=== PATIENT | female | born 1940 | race Caucasian/White ===

== ENCOUNTER 2017-05-30 14:08 | Emergency (ER) | payer MEDICARE, OTHER ==
[~2017-05-30] VITALS: Ht 162.6 cm; Wt 99.2 kg
[~2017-05-30 14:08] MED LIST: Aspirin EC81 MG; DILT180 PO; Dyazide 37.5-21 EACH PO; Glipizide Xl10 MG PO; INSU100I6 SC; LOSARTAN POTAS100 MG PO; METF500C PO; METO50ER PO; OXYB5 PO; RANI150 PO; TOUJEO SOL300 UNIT/1 SC; VITAMIN D31000 UNIT PO
[2017-05-30 14:46] LABS: BASOPHILS ABSOLUTE AUTO 0.13 K/mm3 (0.00-0.23); BASOPHILS PERCENT AUTO 1 % (0-2); EOSINOPHILS ABSOLUTE AUTO 0.31 K/mm3 (0.00-0.68); EOSINOPHILS PERCENT AUTO 2 % (0-6); Hematocrit 48.8 % (33.0-51.0); Hemoglobin 14.9 g/dL (11.5-16.0); IMMATURE GRAN ABSOLUTE AUTO 0.08 K/mm3 (0.00-0.10); IMMATURE GRAN PERCENT AUTO 1 % (0-1); LYMPHOCYTES ABSOLUTE AUTO 2.57 K/mm3 (0.84-5.20); LYMPHOCYTES PERCENT AUTO 20 % (21-46); MONOCYTES ABSOLUTE AUTO 0.88 K/mm3 (0.16-1.47); MONOCYTES PERCENT AUTO 7 % (4-13); Mean Corpuscular HGB 22.2 pg (26.0-34.0); Mean Corpuscular HGB Conc 30.5 g/dL (31.5-36.5); Mean Corpuscular Volume 73 fL (80-100); Mean Platelet Volume 9.9 fL (9.1-12.4); NEUTROPHILS ABSOLUTE AUTO 9.13 K/mm3 (1.96-9.15); NEUTROPHILS PERCENT AUTO 70 % (41-73); Platelet Count 282 K/mm3 (150-400); RDW Coefficient Variation 18.2 % (11.7-14.2); RDW Standard Deviation 42.4 fL (35.1-46.3)
[2017-05-30] MEDS ORDERED: HYDCHL12.5 PO (14:57)
[2017-05-30] MEDS ORDERED: LISI20 PO (14:58)
[2017-05-30] MEDS ORDERED: CALCA400CH PO (15:00)
[2017-05-30 15:12] LABS: Troponin I <0.015 ng/mL (0.000-0.040)
[2017-05-30 15:13] LABS: Alanine Aminotransfer (ALT/SGP 28 U/L (12-78); Albumin, Blood 3.4 g/dL (3.4-5.0); Albumin/Globulin Ratio 0.8 (0.8-1.8); Alk Phos 60 U/L (50-136); Anion Gap 7 mmol/L (6-16); Aspartate Aminotrans (AST/SGOT 26 U/L (12-37); Bilirubin, Total 0.4 mg/dL (0.1-1.0); Blood Urea Nitrogen 17 mg/dL (8-24); Bun/Creatinine Ratio 20.5 (12.0-20.0); CO2, Blood 23 mmol/L (21-32); Calcium, Blood 9.1 mg/dL (8.5-10.1); Chloride, Blood 109 mmol/L (98-108); Creatinine, Blood 0.83 mg/dL (0.40-1.00); Globulin, Blood 4.5 g/dL (2.2-4.0); Glomerular Filtration Rate >60 (60-); Glucose, Blood 66 mg/dL (70-99); Potassium, Blood 4.2 mmol/L (3.5-5.5); Sodium, Blood 139 mmol/L (136-145); Total Protein, Blood 7.9 g/dL (6.4-8.2)
== END 2017-05-30 17:40 | disposition home or self-care (01) ==
LOC: ER 14:08
PROVIDERS: Physician Assistant
DX: I10 Essential (primary) hypertension (principal); R07.89 Other chest pain; Z88.0 Allergy status to penicillin; Z88.8 Allergy status to other drugs, medicaments and biological substances; Z79.82 Long term (current) use of aspirin; Z79.4 Long term (current) use of insulin; Z79.899 Other long term (current) drug therapy; Z90.49 Acquired absence of other specified parts of digestive tract; Z96.649 Presence of unspecified artificial hip joint
CPT/HCPCS: 36415; 71046; 80053; 83880; 84484; 85025; 93005; 93010; 96374; 99283

== ENCOUNTER → 2017-10-15 | Outpatient (CLI) | payer MEDICARE, OTHER ==
[~2017-10-15] MED LIST changes: +CALCA400CH PO; +HYDCHL12.5 PO; +LISI20 PO
== END | disposition home or self-care (01) ==
LOC: PLD 08:39 → LAB SHORT 08:39
DX: D48.5 Neoplasm of uncertain behavior of skin (principal)
CPT/HCPCS: 88305

== ENCOUNTER 2018-11-23 20:03 | Inpatient (IN) | payer MEDICARE, OTHER ==
[~2018-11-23] VITALS: Ht 162.6 cm; Wt 88.9 kg
[2018-11-23 20:32] LABS: BASOPHILS ABSOLUTE AUTO 0.14 K/mm3 (0.00-0.23); BASOPHILS PERCENT AUTO 1 % (0-2); EOSINOPHILS ABSOLUTE AUTO 0.26 K/mm3 (0.00-0.68); EOSINOPHILS PERCENT AUTO 2 % (0-6); Hematocrit 46.2 % (33.0-51.0); Hemoglobin 14.1 g/dL (11.5-16.0); IMMATURE GRAN ABSOLUTE AUTO 0.14 K/mm3 (0.00-0.10); IMMATURE GRAN PERCENT AUTO 1 % (0-1); LYMPHOCYTES ABSOLUTE AUTO 2.32 K/mm3 (0.84-5.20); LYMPHOCYTES PERCENT AUTO 13 % (21-46); MONOCYTES PERCENT AUTO 8 % (4-13); Mean Corpuscular HGB 23.2 pg (26.0-34.0); Mean Corpuscular HGB Conc 30.5 g/dL (31.5-36.5); Mean Corpuscular Volume 76 fL (80-100); NEUTROPHILS ABSOLUTE AUTO 13.15 K/mm3 (1.96-9.15); NEUTROPHILS PERCENT AUTO 76 % (41-73); Platelet Count 273 K/mm3 (150-400); RDW Coefficient Variation 15.7 % (11.7-14.2); RDW Standard Deviation 42.5 fL (35.1-46.3); Red Blood Cell Count 6.09 M/mm3 (3.80-5.20); White Blood Cell Count 17.31 K/mm3 (4.00-11.30)
[2018-11-23 20:47] LABS: Alanine Aminotransfer (ALT/SGP 25 U/L (12-78); Albumin, Blood 3.1 g/dL (3.4-5.0); Albumin/Globulin Ratio 0.7 (0.8-1.8); Alk Phos 107 U/L (50-136); Anion Gap 8 mmol/L (6-16); Aspartate Aminotrans (AST/SGOT 22 U/L (12-37); Bilirubin, Total 0.5 mg/dL (0.1-1.0); Blood Urea Nitrogen 24 mg/dL (8-24); Bun/Creatinine Ratio 24.3 (12.0-20.0); CO2, Blood 22 mmol/L (21-32); Calcium, Blood 9.1 mg/dL (8.5-10.1); Chloride, Blood 109 mmol/L (98-108); Creatinine, Blood 0.99 mg/dL (0.40-1.00); Globulin, Blood 4.4 g/dL (2.2-4.0); Glomerular Filtration Rate 58 (60-); Glucose, Blood 153 mg/dL (70-99); Potassium, Blood 4.2 mmol/L (3.5-5.5); Sodium, Blood 139 mmol/L (136-145); Total Protein, Blood 7.5 g/dL (6.4-8.2); Troponin I <0.015 ng/mL (0.000-0.040)
[2018-11-23 21:59] LABS: Source, Urine Catheter
[2018-11-23 22:04] LABS: Appearance, Urine Hazy (Clear); Bilirubin, Urine Neg (Neg); Blood, Urine 1+ (Neg); Color, Urine Pale Yellow (P-Yellow); Glucose Qualitative, Urine Neg (Neg); Ketones, Urine Neg (Neg); Leukocyte Esterase, Urine 1+ (Neg); Nitrite, Urine Pos (Neg); Protein, Urine 1+ (Neg); Specific Gravity, Urine 1.015 (1.003-1.022); Urobilinogen, Urine NORM (Normal)
[2018-11-23 22:13] LABS: Bacteria Many /hpf; Red Blood Cells, Urine Rare /hpf (0-2); Squamous Epithelial Cells Not Seen /hpf (Few); White Blood Cells, Urine 0-2 /hpf (0-5)
[2018-11-24 00:49] LABS: Magnesium, Blood 2.1 mg/dL (1.6-2.4)
[2018-11-24 00:51] LABS: Thyroid Stimulating Hormone 1.73 uIU/mL (0.360-4.800)
[2018-11-24 02:23] LABS: International Normalized Ratio 1.01; Prothrombin Time Results 10.7 Sec (9.7-11.5)
--- NOTE | 2018-11-24 04:20 | NUR ---
SHEATH REMOVAL: R FEMORAL SHEATH REMOVED & MANUAL PRESSURE HELD FOR 20 MINUETS BY Alison SERRANO RN. SITE WAS DRESSED W DAVID DRSG. SITE IS SOFT, NO HEMATOMA. WILL CONT TO MONITOR. PT REMINDED TO KEEP LEG STRAIGHT.
--- NOTE | 2018-11-24 04:30 | NUR ---
PT TO ICU 14 FROM CONFERENCE TRANSLATOR. PT HAS ARTERIAL SHEATH R GROIN & VENOUS SHEATH L GROIN. TEMPORARY TRANSVENOUS PACER L VENOUS SHEATH. PACER 78CM INSERTION, SET VVI, RATE 60, mV2, V5. PT HAS FULLY PACED RHYTHM AT 60. PT HAS DOPAMINE INFUSING AT 15MCG/KG/MIN. DR FINNEY TO BEDSIDE & DISCUSSED PT STATUS. WILL TITRATE DOPAMINE TO OFF POSSIBLE, KEEPING SBP >120 PT HAS SEVERE AORTIC STENOSIS. PT IS ALERT, HAS WRY SENSE OF HUMOR, CONT W MILD NAUSEA STATES IT IS INTERMITTANT. CO INTERMITTANT SPASMS TO R LEG, DR FINNEY REQ NARCOTIC BE USED SPARINGLY PT BP DECLINED W SMALL DOSE IN CONFERENCE TRANSLATOR. PT HAS BILAT AC IV ACCESS, BOTH SITES DRAW BLOOD READILY & EASILY. WILL CONT TO MONITOR FREQ FOR ANY SIGN OF INFILTRATION. REVIEWED RESTRICTIONS W PT MOVEMENT & IMPORTANCE OF NO FLEXION OF EITHER LEG. PT UNDERSTANDS, SHEET PLACED ACROSS KNEES REMINDER. CALL LIGHT IN REACH.
[2018-11-24 04:32] LABS: BASOPHILS ABSOLUTE AUTO 0.12 K/mm3 (0.00-0.23); BASOPHILS PERCENT AUTO 1 % (0-2); EOSINOPHILS ABSOLUTE AUTO 0.01 K/mm3 (0.00-0.68); EOSINOPHILS PERCENT AUTO 0 % (0-6); Hematocrit 44.4 % (33.0-51.0); Hemoglobin 13.6 g/dL (11.5-16.0); IMMATURE GRAN ABSOLUTE AUTO 0.24 K/mm3 (0.00-0.10); IMMATURE GRAN PERCENT AUTO 1 % (0-1); LYMPHOCYTES ABSOLUTE AUTO 0.98 K/mm3 (0.84-5.20); LYMPHOCYTES PERCENT AUTO 5 % (21-46); MONOCYTES ABSOLUTE AUTO 1.91 K/mm3 (0.16-1.47); MONOCYTES PERCENT AUTO 9 % (4-13); Mean Corpuscular HGB 23.2 pg (26.0-34.0); Mean Corpuscular HGB Conc 30.6 g/dL (31.5-36.5); Mean Corpuscular Volume 76 fL (80-100); Mean Platelet Volume 9.5 fL (9.1-12.4); NEUTROPHILS ABSOLUTE AUTO 17.52 K/mm3 (1.96-9.15); NEUTROPHILS PERCENT AUTO 84 % (41-73); Platelet Count 329 K/mm3 (150-400); RDW Coefficient Variation 15.2 % (11.7-14.2); RDW Standard Deviation 41.7 fL (35.1-46.3); Red Blood Cell Count 5.87 M/mm3 (3.80-5.20); White Blood Cell Count 20.78 K/mm3 (4.00-11.30)
[2018-11-24 04:52] LABS: Albumin, Blood 3.1 g/dL (3.4-5.0); Albumin/Globulin Ratio 0.8 (0.8-1.8); Bilirubin, Total 0.7 mg/dL (0.1-1.0); Bun/Creatinine Ratio 25.2 (12.0-20.0); Calcium, Blood 8.5 mg/dL (8.5-10.1); Creatinine, Blood 1.15 mg/dL (0.40-1.00); Potassium, Blood 4.2 mmol/L (3.5-5.5); Total Protein, Blood 7.1 g/dL (6.4-8.2)
--- NOTE | 2018-11-24 06:30 | NUR ---
DR FINNEY HERE TO CHECK PT STATUS. BP UP TO 140SYST, WILL DECREASE DOPAMINE & CHANGE TO LEVOPHED PER DR FINNEY ORDER. PT CO MORE PAIN/SPASMS TO R LEG, WILL MED W FENTANYL. CONT PACED, BUT NOTED W OCCAS PVC'S AT TIMES. IV SITE L AC W DOPAMINE CONT TO INFUSE WO ANY SIGN OF INFILTRATION. CONT TO MONITOR.
--- NOTE | 2018-11-24 07:10 | NUR ---
PT MED W FENTANYL 12.5MCG. CONT TO RESP APPROP TO QUEST, AND MED REC COMPLETED. R FEMORAL SITE CONT SOFT & WO BLEEDING. L FEMORAL SITE ALSO IS UNCHANGED W TEMP TRANSV PACER. CONT W PACED RHYTHM. DOPAMINE DC'D & CHANGED TO LEVOPHED, STARTED AT 3MCG/MIN. L AC IV CONT WO ANY SIGN OF INFILTRATION. REPORT TO PAMELA AT BEDSIDE, SITES & PUMPS VERIFIED.
[2018-11-24] MEDS ORDERED: AMLO10 PO (07:35)
[2018-11-24] MEDS ORDERED: SPIR25 PO (07:35)
--- NOTE | 2018-11-24 09:16 | NUR ---
PT RESTING COMFORTABLY. LEVOPHED TITRATED TO 1MCG. BP TOLERATING WELL ABOVE SBP OF 100. LAST SBP 103, LEVOPHED WILL REMAIN AT 1MCG. PT COMPLAINING OF CONSTIPATION, LAST BM 11/22/18.
--- NOTE | 2018-11-24 09:47 | NUR ---
PER DR. MCKEON LIMIT IV NS TO 1.5L.
--- NOTE | 2018-11-24 13:01 | NUR ---
ANTIBIOTICS CLARIFIED WITH DR. MCKEON. NO ROCEPHIN AT THIS TIME.
--- NOTE | 2018-11-24 13:57 | NUR ---
SHIFT REASSESSMENT: PT IN BED RESTING. TAKEN TO CT FOR ABDOMINAL SCAN. TOLERATED WELL. PERMANENT PACEMAKER NOT SCHEDULED FOR TODAY DUE TO ELEVATED WHITE COUNT. PT IS TEMP PACED WITH OCCASIONAL PACING WHEN HR DROPS BELOW 60. PT IS ALSO GOES BETWEEN 1ST DEGREE HEARTBLOCK AND REGULAR RHYTHM. BLOOD PRESSURES ABOVE 120. SYSTOLICALLY R FEM CATH INSERTION SITE DRESSING INTACT AND DRY WITHOUT HEMATOMA. R GROIN PACER INSERTION SITE INTACT AND DRY. PT HAS REPORTED PAIN AT R ANKLE FRACTURE. FENTANYL GIVEN. COLOR AND SENSATION INTACT AT R. LOWER EXTREMITY. FRIENDS AND FAMILY HAVE BEEN IN PTS ROOM THROUGHOUT MORNING.
--- NOTE | 2018-11-24 15:59 | NUR ---
SHIFT SUMMARY: PT CAME IN AFTER FALL AND BROKEN R ANKLE. FOUND IN ED TO BE IN A 3RD DEGREE BLOCK AND A TEMP PACEMAKER WAS PLACED. PACEMAKER SET AT MV 2, V 5, RATE AT 60. R FEM INSERTION SITE IS CLEAN AND DRY WITHOUT HEMATOMA. TEMP PACER PLACED THROUGH L GROIN-NO HEMATOMA, DRESSING IS CLEAN AND DRY. SPLINT IS ON R ANKLE. COLOR AND SENSATION INTACT TO R FOOT. PT HAS COMPLAINED OF SOME PAIN AND FENTANYL WAS GIVEN X 1. FRIENDS AND FAMILY HAVE BEEN AT BEDSIDE ON AND OFF THROUGHOUT SHIFT.
--- NOTE | 2018-11-24 18:42 | NUR ---
PT EXPERIENCING INCREASED PAIN WITH REPOSITIONING FOR DINNER. FENTANYL GIVEN PER ORDER
--- NOTE | 2018-11-24 18:55 | NUR ---
INFUSING LAST 500ML OF ORDERED 1.5L OF NS
--- NOTE | 2018-11-24 20:22 | NUR ---
CARE ASSUMED REPORT RECEIVED, CARE ASSUMED AT 1900 FROM THEA OLIVEIRA AND THEA COELHO. BEDSIDE REPORT COMPLETED, SITES VERIFIED. PT REMAINS PACED WITH TEMPORARY PACER. HR 70'S-80'S WITH OCCASIONAL PACED BEATS. BP STABLE. PT HAVING INTERMITTENT, SHARP, RADIATING PAINS TO RIGHT LEG DUE TO FRACTURE. PT REPORTS PAIN IMPROVED FROM PREVIOUSLY RATING AT 7/10. PT CALM AND RESTFUL IN BETWEEN PAIN SURGES. PT RECEIVING PHONE CALLS FROM MULTIPLE FRIENDS OVER PREVOIUS HOUR. PT DISCUSSES BEING HOPEFUL FOR COMPLETION OF BOTH THE PERMANENT PACEMAKER AND RIGHT ANKLE SURGERY. EDUCATED PT ON PLAN OF CARE AND PT AGREEABLE. PT DECLINES REPOSITIONING DUE TO INCREASED PAIN. PT EDUCATED ON BED SORE PREVENTION. PT AGREES TO BEDREST AND TO CALL FOR NEEDS. SEE VITALS FLOWSHEET/SHIFT ASSESSMENT.
--- NOTE | 2018-11-25 02:45 | NUR ---
SUMMARY VITALS STABLE. PT OCCASIONALLY PACED. PAIN MANAGED WITH FENTANYL. OTHERWISE, PT HAS SLEPT SOUNDLY AND EXPRESSED NEEDS APPROPRIATELY. SEE REASSESSMENTS AND VITALS FLOWSHEET. REPORT TO THEA SCOTT TO ASSUME CARE.
--- NOTE | 2018-11-25 02:51 | NUR ---
ASSUMED CARE OF PT PT SLEEPING, AWAKENS EASILY TO VERBAL. DENIES PAIN AT THIS TIME. PT STATES,"I'M NOT HAVING ANY PAIN RIGHT NOW". FIVE LULI TO POSTERIOR HEAD WITHOUT DRAINAGE. RIGHT GROIN STABLE. LEFT GROIN WITH PACEMAKER SITE STABLE. RIGHT LOWER EXT WITH SPLINT AND MICHAEL WRAP. DENIES NUMBNESS OR TINGLING TO BILAT LOWER EXT. BRISK CAP REFILL TO RIGHT FOOT. RIGHT FOOT ELEVATED ON PILLOWS. TRANSVENOUS PACER SETTINGS VVI, 78CM, RATE 60, MV 2 V 5.
[2018-11-25 03:24] LABS: BASOPHILS ABSOLUTE AUTO 0.09 K/mm3 (0.00-0.23); BASOPHILS PERCENT AUTO 1 % (0-2); EOSINOPHILS ABSOLUTE AUTO 0.35 K/mm3 (0.00-0.68); EOSINOPHILS PERCENT AUTO 3 % (0-6); Hematocrit 38.6 % (33.0-51.0); Hemoglobin 11.7 g/dL (11.5-16.0); IMMATURE GRAN ABSOLUTE AUTO 0.07 K/mm3 (0.00-0.10); IMMATURE GRAN PERCENT AUTO 1 % (0-1); LYMPHOCYTES ABSOLUTE AUTO 1.77 K/mm3 (0.84-5.20); LYMPHOCYTES PERCENT AUTO 14 % (21-46); MONOCYTES ABSOLUTE AUTO 1.38 K/mm3 (0.16-1.47); MONOCYTES PERCENT AUTO 11 % (4-13); Mean Corpuscular HGB 22.9 pg (26.0-34.0); Mean Corpuscular HGB Conc 30.3 g/dL (31.5-36.5); Mean Corpuscular Volume 76 fL (80-100); Mean Platelet Volume 9.7 fL (9.1-12.4); NEUTROPHILS ABSOLUTE AUTO 8.59 K/mm3 (1.96-9.15); NEUTROPHILS PERCENT AUTO 70 % (41-73); Platelet Count 201 K/mm3 (150-400); RDW Coefficient Variation 15.2 % (11.7-14.2); RDW Standard Deviation 41.4 fL (35.1-46.3); Red Blood Cell Count 5.11 M/mm3 (3.80-5.20); White Blood Cell Count 12.25 K/mm3 (4.00-11.30)
--- NOTE | 2018-11-25 04:40 | NUR ---
PAIN PT AWAKE. C/O PAIN TO RIGHT LEG 10/18. MED WITH FENTANYL 12.5 MCQ. PT EXPRESS RELIEF FROM PAIN. PT STATES,"I FEEL LIKE I COULD SIT UP NOW".
--- NOTE | 2018-11-25 06:20 | NUR ---
SHIFT SUMMARY PT RESTING QUIELTY AT THIS TIME. PT MED WITH FENTANYL 12.5 MCQ FOR RIGHT LEG PAIN WITH GOOD RESULTS. CALL TO DR LEDEZMA REGARDING HTN THIS AM. RECEIVED ORDER FOR ONE TIME DOSE OF NORVASC 5 MG PO. PT TO GO TO [employer] UNDERWRITER TODAY FOR PACER PLACEMENT. REPORT TO ON COMING NURSE.
--- NOTE | 2018-11-25 06:36 | NUR ---
PAIN/HTN PT MED WITH FENTANYL FOR PAIN WITH GOOD RESULTS. GIVEN NORVASC 5 MG ONE TIME DOSE FOR HTN.
--- NOTE | 2018-11-25 07:11 | NUR ---
LATE ENTRY: NOTE ENTERED ON WRONG PATIENT. PAIN REASSESSMENT RE ADMINISTRATION OF TYLENOL 650MG. REPORTS PAIN EASES UP WITH REST. HOWEVER, PAIN WITH REPOSITIONING INCREASES UP TO A 9/10
--- NOTE | 2018-11-25 13:16 | NUR ---
UPDATE GIVEN TO DR. PATEL RE PACEMAKER PLACEMENT
[2018-11-25 13:24] LABS: Alanine Aminotransfer (ALT/SGP 18 U/L (12-78); Albumin, Blood 2.7 g/dL (3.4-5.0); Albumin/Globulin Ratio 0.7 (0.8-1.8); Alk Phos 92 U/L (50-136); Anion Gap 8 mmol/L (6-16); Aspartate Aminotrans (AST/SGOT 11 U/L (12-37); Bilirubin, Total 0.5 mg/dL (0.1-1.0); Blood Urea Nitrogen 19 mg/dL (8-24); Bun/Creatinine Ratio 20.1 (12.0-20.0); CO2, Blood 21 mmol/L (21-32); Calcium, Blood 8.7 mg/dL (8.5-10.1); Chloride, Blood 111 mmol/L (98-108); Creatinine, Blood 0.94 mg/dL (0.40-1.00); Glomerular Filtration Rate >60 (60-); Glucose, Blood 173 mg/dL (70-99); Potassium, Blood 3.9 mmol/L (3.5-5.5); Sodium, Blood 140 mmol/L (136-145); Total Protein, Blood 6.7 g/dL (6.4-8.2)
--- NOTE | 2018-11-25 13:41 | NUR ---
[facility] ON UNIT TO TAKE PT
--- NOTE | 2018-11-25 18:53 | NUR ---
PT BACK FROM ASSISTANT PROFESSOR OF ENGLISH POST PERM DUAL CHAMBER PACEMAKER PLACEMENT. RATE IS SET AT 60 AND MODE IS MVP. 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 PT RECEIVED 10 OF VERSED, 275 OF FENTANYL, 550 ML OF NS AND 1G IV VANCO. PER DR DE JESUS SLING IS TO REMAIN ON X 2 DAYS; VANCO IS ORDERED X 2 DOSES. DUE TO HTN AND TACHYCARDIA DR. DE JESUS IS RECOMMENDING A BETA VINOD, HOWEVER DID NOT RECOMMEND A SPECIFIC MED OR DOSAGE. CALL PLACED TO DR. CMKEON RE BETA VINOD.
--- NOTE | 2018-11-25 19:08 | NUR ---
PHARMACY CALLED RE [place]. PER PHARMACIST HOLD VANCO UNTIL CLARIFICATION IS RECEIVED FROM DR DE JESUS REGARDING TIMING. LAST DOSE OF VANCO WAS GIVEN PRE-OPERATIVELY AROUND 1300.
--- NOTE | 2018-11-26 01:30 | NUR ---
CONT TO HAVE SPASMODIC PAIN R LEG WHICH IS ELEVATED & WRAPPED MICHAEL WRAP. GOOD PAIN RELIEF W NORCO. TOES ARE WARM & PINK. SBP CONT 160-170 & ORDER REC'D & PT WAS MED W TOPROL. PT WAS EDUCATED RE LIMITATIONS OF R ARM S/P PACER IMPLANT, SLING IN PLACE. CALL LIGHT IN REACH.
[2018-11-26 03:08] LABS: BASOPHILS PERCENT AUTO 1 % (0-2); EOSINOPHILS ABSOLUTE AUTO 0.23 K/mm3 (0.00-0.68); EOSINOPHILS PERCENT AUTO 2 % (0-6); Hematocrit 37.6 % (33.0-51.0); Hemoglobin 11.7 g/dL (11.5-16.0); IMMATURE GRAN ABSOLUTE AUTO 0.09 K/mm3 (0.00-0.10); IMMATURE GRAN PERCENT AUTO 1 % (0-1); LYMPHOCYTES ABSOLUTE AUTO 1.47 K/mm3 (0.84-5.20); LYMPHOCYTES PERCENT AUTO 10 % (21-46); MONOCYTES ABSOLUTE AUTO 1.75 K/mm3 (0.16-1.47); MONOCYTES PERCENT AUTO 12 % (4-13); Mean Corpuscular HGB 23.3 pg (26.0-34.0); Mean Corpuscular HGB Conc 31.1 g/dL (31.5-36.5); Mean Corpuscular Volume 75 fL (80-100); Mean Platelet Volume 9.8 fL (9.1-12.4); NEUTROPHILS ABSOLUTE AUTO 10.58 K/mm3 (1.96-9.15); NEUTROPHILS PERCENT AUTO 75 % (41-73); Platelet Count 171 K/mm3 (150-400); RDW Coefficient Variation 15.2 % (11.7-14.2); RDW Standard Deviation 41.1 fL (35.1-46.3); Red Blood Cell Count 5.02 M/mm3 (3.80-5.20); White Blood Cell Count 14.22 K/mm3 (4.00-11.30)
[2018-11-26 04:51] LABS: Alanine Aminotransfer (ALT/SGP 16 U/L (12-78); Albumin, Blood 2.4 g/dL (3.4-5.0); Albumin/Globulin Ratio 0.7 (0.8-1.8); Alk Phos 81 U/L (50-136); Anion Gap 7 mmol/L (6-16); Aspartate Aminotrans (AST/SGOT 9 U/L (12-37); Bilirubin, Total 0.5 mg/dL (0.1-1.0); Blood Urea Nitrogen 14 mg/dL (8-24); Bun/Creatinine Ratio 17.7 (12.0-20.0); CO2, Blood 22 mmol/L (21-32); Calcium, Blood 8.3 mg/dL (8.5-10.1); Chloride, Blood 110 mmol/L (98-108); Creatinine, Blood 0.79 mg/dL (0.40-1.00); Globulin, Blood 3.6 g/dL (2.2-4.0); Glomerular Filtration Rate >60 (60-); Glucose, Blood 218 mg/dL (70-99); Potassium, Blood 3.4 mmol/L (3.5-5.5); Sodium, Blood 139 mmol/L (136-145)
--- NOTE | 2018-11-26 06:30 | NUR ---
PT WAS TAKEN TO IMAGING FOR 2V CXR. MED AT THIS TIME W NORCO. PT HAD RESTFUL NOC, FEELING BETTER. KEEP W CL LIQUIDS IN ANTICIPATION OF ANKLE REPAIR THIS AFTERNOON. BP WAS IMPROVED AFTER TOPROL, BUT TRENDING UP AGAIN. CALL LIGHT IN REACH.
--- NOTE | 2018-11-26 12:39 | NUR ---
PT TO SURGERY
--- NOTE | 2018-11-26 13:00 | NUR ---
INTO SDS VIA BED. PT A&OX3-REPORTS 11/18 RIGHT ANKLE PAIN. PT STATES "IT HURTS WHEN YOU LOOK AT IT!" MICHAEL WRAP IN PLACE TO RIGHT ANKLE-C/D/I. HISTORY AND ALLERGIES REVIEWED. NPO STATUS CONFIRMED. LUNGS DIMINISHED IN BASES.SATS>90% ON 2LITERS NASAL CANULA.
--- NOTE | 2018-11-26 14:21 | NUR ---
ASSUMPTION OF CARE ASSUMED CARE OF PT @ 0715. PT ALERT AND ORIENTED, ON 2L O2 VIA NC, VSS. PT STS PAIN TO R ANKLE/LEG AND PAIN TO LEFT LEG WITH PALPATION. DEAN HOSE ON L LEG REMOVED AND LEG ELEVATED ON PILLOW. SPLINT AND MICHAEL WRAP TO R LEG, SENSATION PRESENT WITH GOOD CAP REFILL. PACER INTERROGATION PERFORMED AT START OF SHIFT. MONITOR SHOWS SINUS RHYTHM WITH OCCASIONAL PACER SPIKES. R ANKLE ORIF SCHEDULED FOR TODAY.
--- NOTE | 2018-11-26 16:33 | NUR ---
SPOKE WITH DR. PATEL REGARDING STATUS CHANGE OF PT. HE STATED FROM SURGICAL STANDPOINT PT CAN BE TRANSFERED TO SURGICAL FLOOR. DR. KIM WAS NOTIFIED AFTER TALKING TO DR. PATEL, DR. KIM ORDERED TO TRANSFER PT TO MEDICAL FLOOR.
--- NOTE | 2018-11-26 18:11 | NUR ---
LEFT GROIN SHEATH REMOVED FOLLOWING POLICY AND PROCEDURE. PT CARMEN PROCEDURE WELL, VASELINE GAUZE DRSG W OPSITE PLACED OVER SITE. HEMASTASIS OBTAINED AFTER 10MIN, MANUAL PRESSURE HELD FOR 15MIN. BEDSIDE REPORT GIVEN TO SURGICAL FLOOR RN.
--- NOTE | 2018-11-26 18:28 | NUR ---
SHIFT SUMMARY PT ARRIVED FROM PACU A&OX4, 3LNC, PAIN 7/10 25 MCGS GIVEN TO IMPROVE PAIN TO 5/10, DENIES N&V, CARMEN PO. CENTRALINE REMOVED BY MAURA SIDHU. S/P ORIF, RLL SPLINT/MICHAEL WRAP, NWB, ELEVATED.
[2018-11-27 04:11] LABS: BASOPHILS ABSOLUTE AUTO 0.11 K/mm3 (0.00-0.23); BASOPHILS PERCENT AUTO 1 % (0-2); EOSINOPHILS PERCENT AUTO 4 % (0-6); Hematocrit 34.8 % (33.0-51.0); Hemoglobin 10.7 g/dL (11.5-16.0); IMMATURE GRAN ABSOLUTE AUTO 0.15 K/mm3 (0.00-0.10); IMMATURE GRAN PERCENT AUTO 1 % (0-1); LYMPHOCYTES ABSOLUTE AUTO 2.23 K/mm3 (0.84-5.20); LYMPHOCYTES PERCENT AUTO 13 % (21-46); MONOCYTES ABSOLUTE AUTO 1.99 K/mm3 (0.16-1.47); MONOCYTES PERCENT AUTO 12 % (4-13); Mean Corpuscular HGB 23.2 pg (26.0-34.0); Mean Corpuscular HGB Conc 30.7 g/dL (31.5-36.5); Mean Corpuscular Volume 76 fL (80-100); Mean Platelet Volume 10.5 fL (9.1-12.4); NEUTROPHILS ABSOLUTE AUTO 11.88 K/mm3 (1.96-9.15); NEUTROPHILS PERCENT AUTO 70 % (41-73); Platelet Count 208 K/mm3 (150-400); RDW Coefficient Variation 15.4 % (11.7-14.2); Red Blood Cell Count 4.61 M/mm3 (3.80-5.20); White Blood Cell Count 16.96 K/mm3 (4.00-11.30)
[2018-11-27 04:32] LABS: Alanine Aminotransfer (ALT/SGP 15 U/L (12-78); Albumin, Blood 2.1 g/dL (3.4-5.0); Albumin/Globulin Ratio 0.6 (0.8-1.8); Alk Phos 143 U/L (50-136); Anion Gap 4 mmol/L (6-16); Aspartate Aminotrans (AST/SGOT 12 U/L (12-37); Bilirubin, Total 0.5 mg/dL (0.1-1.0); Blood Urea Nitrogen 18 mg/dL (8-24); CO2, Blood 26 mmol/L (21-32); Calcium, Blood 8.3 mg/dL (8.5-10.1); Chloride, Blood 110 mmol/L (98-108); Creatinine, Blood 0.86 mg/dL (0.40-1.00); Globulin, Blood 3.6 g/dL (2.2-4.0); Glomerular Filtration Rate >60 (60-); Glucose, Blood 140 mg/dL (70-99); Potassium, Blood 4.3 mmol/L (3.5-5.5); Sodium, Blood 140 mmol/L (136-145); Total Protein, Blood 5.7 g/dL (6.4-8.2)
--- NOTE | 2018-11-27 06:16 | NUR ---
PT HAS BEEN STABLE THIS SHIFT. PAIN CONTROLLED WITH PRN MEDS. PT VERY ANXIOUS TO ANY MOVEMENT. PT SPLINT WITH MICHAEL WRAP CDI. DRESSING TO RCW WNL. SLING TO RIGHT ARM. PT WEANED TO 1L O2. FISHER DRAINING MARISELA URINE, CULTURE RESULTS + ECOLI. NEEDS STOOL COLLECTION FOR GI PANEL, NO BM THIS SHIFT. POWERGLIDE S.L. PT USES CALL LIGHT APPROPRIATELY PRN.
--- NOTE | 2018-11-27 17:08 | NUR ---
Shift Summary: Dressing to right ankle C/D/I. Dressing to RCW unchanged, no new drainage and brusing unchanged. She states that she is very unhappy with the thought of going to a SNF. She is cooperative with care, demonstrating less anxiety this afternoon than this morning. She has had visitors today. She continues to report pain and is anxious w/guarding when any part of her bed is touched. A&O x 4. Tolerating PO intake well, denies N/V. Stat lock on left thigh. Storey patent and draining. VSS. Pain managed w/10 mg [place]. Will report to oncoming noc nurse.
[2018-11-28 04:54] LABS: BASOPHILS ABSOLUTE AUTO 0.13 K/mm3 (0.00-0.23); BASOPHILS PERCENT AUTO 1 % (0-2); EOSINOPHILS ABSOLUTE AUTO 0.73 K/mm3 (0.00-0.68); EOSINOPHILS PERCENT AUTO 4 % (0-6); Hematocrit 35.5 % (33.0-51.0); IMMATURE GRAN ABSOLUTE AUTO 0.23 K/mm3 (0.00-0.10); IMMATURE GRAN PERCENT AUTO 1 % (0-1); LYMPHOCYTES ABSOLUTE AUTO 1.84 K/mm3 (0.84-5.20); LYMPHOCYTES PERCENT AUTO 11 % (21-46); MONOCYTES ABSOLUTE AUTO 1.56 K/mm3 (0.16-1.47); MONOCYTES PERCENT AUTO 9 % (4-13); Mean Corpuscular HGB 22.8 pg (26.0-34.0); Mean Corpuscular Volume 74 fL (80-100); Mean Platelet Volume 9.8 fL (9.1-12.4); NEUTROPHILS ABSOLUTE AUTO 12.03 K/mm3 (1.96-9.15); NEUTROPHILS PERCENT AUTO 73 % (41-73); Platelet Count 237 K/mm3 (150-400); RDW Coefficient Variation 15.3 % (11.7-14.2); RDW Standard Deviation 40.9 fL (35.1-46.3); Red Blood Cell Count 4.82 M/mm3 (3.80-5.20); White Blood Cell Count 16.52 K/mm3 (4.00-11.30)
[2018-11-28 05:12] LABS: Alanine Aminotransfer (ALT/SGP 11 U/L (12-78); Albumin, Blood 2.2 g/dL (3.4-5.0); Albumin/Globulin Ratio 0.6 (0.8-1.8); Alk Phos 140 U/L (50-136); Anion Gap 6 mmol/L (6-16); Aspartate Aminotrans (AST/SGOT 9 U/L (12-37); Bilirubin, Total 0.4 mg/dL (0.1-1.0); Blood Urea Nitrogen 26 mg/dL (8-24); Bun/Creatinine Ratio 27.7 (12.0-20.0); CO2, Blood 24 mmol/L (21-32); Calcium, Blood 8.5 mg/dL (8.5-10.1); Chloride, Blood 108 mmol/L (98-108); Creatinine, Blood 0.94 mg/dL (0.40-1.00); Glomerular Filtration Rate >60 (60-); Glucose, Blood 163 mg/dL (70-99); Potassium, Blood 4.5 mmol/L (3.5-5.5); Sodium, Blood 138 mmol/L (136-145); Total Protein, Blood 6.2 g/dL (6.4-8.2)
--- NOTE | 2018-11-28 07:16 | NUR ---
PT HAS BEEN STABLE THIS SHIFT. PT HAS BEEN MEDICATED FOR PAIN X1. SLEPT MOST OF THE SHIFT. PT REPEATEDLY REFUSED TO TURN OR GET UP TO CHAIR WITH LIFT. FISHER DRAINING WELL. PT HAS NOT HAD A BM IN 1 WEEK, REFUSED SUPPOSITORY WHEN OFFERED. UNCOLLECTED STOOL SAMPLE SINCE ADMIT. PT TAKES MEDS WELL. AWAITING SNF PLACEMENT.
--- NOTE | 2018-11-28 09:08 | NUR ---
11/28/18 0908 Denise Garzon VERIFICATIONS: EDIT CHART.
--- NOTE | 2018-11-28 10:08 | NUR ---
need to remove jenkins today and pt requested to "nap for a few minutes". I confirmed with pt that I would return at 1030 to remove jenkins.
--- NOTE | 2018-11-28 10:25 | NUR ---
1304 PATIENT OPENS EYES WHEN TALKED TO, TELLS ME SHE CANT ANSWER QUESTIONS BECAUSE SHE IS SLEEPING. PATIENT WILL NOT ANSWER WHEN ASKED IF SHE IS HAVING PAIN. PATIENT DECLINES TO BE REPOSITIONED AT THIS TIME. PATIENT EDUCATION GIVEN ON NEED FOR REPOSITIONING TO PREVENT SKIN BREAKDOWN AND PATIENT STATES "YOU LEAVE ME ALONE"
--- NOTE | 2018-11-28 12:04 | NUR ---
NAUSEA PATIENT REPORTS SLIGHT NAUSEA- PATIENT DECLINES ANY NAUSEA MEDS CRACKERS GIVEN PER PATIENTS REQUEST. DISCUSSED WITH PATIENT POSSIBLE NAUSEA RELATED TO NO BM- PATIENT BECAME ANGRY AND STATES SHE DOES NOT NEED TO HAVE A BM AND REFUSES ANY BOWEL CARE MEASURES
--- NOTE | 2018-11-28 13:22 | NUR ---
REPORT PHONED TO LUIZ AT [facility]. DISCUSSED WITH LUIZ THAT PATIENT HAS NOT HAD BM SINCE 11/22/18 AND REFUSES ALL BOWEL CARE. LUIZ IS ALSO AWARE PATIENT HAS NOT VOIDED SINCE FISHER REMOVED
--- NOTE | 2018-11-28 14:24 | NUR ---
DISCHARGED VIA GURNEY WITH TRANSPORT TO BE TRANSFERRED TO [facility]
== END 2018-11-28 14:26 | DRG 854 ==
LOC: ER 20:03 → ICUE 11-24 01:27 → ICUW 11-24 01:56 → SURS 11-24 01:56 → ICUE 11-24 01:56 → ICUW 11-24 02:29 → ICUE 11-24 07:27 → SURS 11-26 17:05
PROVIDERS: Emergency Medicine; Internal Medicine; Internal Medicine Cardiovascular Disease; Nurse Practitioner Acute Care; ADMIT Hospitalist
PROC: 5A1223Z Performance of Cardiac Pacing, Continuous (ICD-10-PCS; 2018-11-24)
PROC: 0JH606Z Insertion of Pacemaker, Dual Chamber into Chest Subcutaneous Tissue and Fascia, Open Approach (ICD-10-PCS; principal; 2018-11-25)
PROC: 02HK3JZ Insertion of Pacemaker Lead into Right Ventricle, Percutaneous Approach (ICD-10-PCS; 2018-11-25)
PROC: 0QSG04Z Reposition Right Tibia with Internal Fixation Device, Open Approach (ICD-10-PCS; 2018-11-26)
DX: A41.9 Sepsis, unspecified organism (principal); I44.2 Atrioventricular block, complete; N39.0 Urinary tract infection, site not specified; I50.32 Chronic diastolic (congestive) heart failure; K55.9 Vascular disorder of intestine, unspecified; I35.0 Nonrheumatic aortic (valve) stenosis; E11.9 Type 2 diabetes mellitus without complications; S82.851A Displaced trimalleolar fracture of right lower leg, initial encounter for closed fracture; W19.XXXA Unspecified fall, initial encounter; I11.0 Hypertensive heart disease with heart failure; S09.90XA Unspecified injury of head, initial encounter; K52.9 Noninfective gastroenteritis and colitis, unspecified; B96.20 Unspecified Escherichia coli [E. coli] as the cause of diseases classified elsewhere
CPT/HCPCS: 12002; 27810; 33208; 33210; 36415; 51702; 70450; 71045; 71046; 72125; 73600; 73610; 74176; 76937; 80053; 81001; 82947; 83735; 84443; 84484; 85025; 85027; 85610; 86850; 86900; 86901; 87040; 87077; 87086; 87186; 93005; 93010; 96365-59; 96375-59; 96376; 97110; 97163; 97167; 97530; 99152; 99153; 99285-25; A9270; A9270-GY; C1713; C1769; C1785; C1894; C1898; J0461; J0692; J0696; J0744; J1170; J1265; J1610; J1644; J2250; J2405; J2704; J3010; J3370; J3480; J7030; J7040; J7060; J7120; Q9967

== ENCOUNTER 2019-01-15 11:03 | Inpatient (IN) | payer MEDICARE, OTHER ==
[~2019-01-15] VITALS: Ht 162.6 cm; Wt 81.6 kg
[~2019-01-15 11:03] MED LIST changes: +Amlodipine Besy10 MG PO; -Aspirin EC81 MG; +Aspirin EC81 MG PO; +CEPH500 PO; +HYDR1TAB94 PO; -INSU100I6 SC; +METO25ER PO; -METO50ER PO; +SPIR25 PO; +XARELTO15 MG PO
[2019-01-15 12:14] LABS: Source, Urine Voided
[2019-01-15 12:25] LABS: BASOPHILS PERCENT AUTO 1 % (0-2); EOSINOPHILS ABSOLUTE AUTO 0.17 K/mm3 (0.00-0.68); EOSINOPHILS PERCENT AUTO 1 % (0-6); Hematocrit 35.2 % (33.0-51.0); Hemoglobin 10.8 g/dL (11.5-16.0); IMMATURE GRAN ABSOLUTE AUTO 0.95 K/mm3 (0.00-0.10); IMMATURE GRAN PERCENT AUTO 3 % (0-1); LYMPHOCYTES PERCENT AUTO 7 % (21-46); MONOCYTES ABSOLUTE AUTO 1.55 K/mm3 (0.16-1.47); MONOCYTES PERCENT AUTO 4 % (4-13); Mean Corpuscular HGB 21.7 pg (26.0-34.0); Mean Corpuscular HGB Conc 30.7 g/dL (31.5-36.5); Mean Corpuscular Volume 71 fL (80-100); Mean Platelet Volume 8.9 fL (9.1-12.4); NEUTROPHILS PERCENT AUTO 85 % (41-73); Platelet Count 627 K/mm3 (150-400); RDW Coefficient Variation 15.1 % (11.7-14.2); RDW Standard Deviation 37.2 fL (35.1-46.3); Red Blood Cell Count 4.97 M/mm3 (3.80-5.20); White Blood Cell Count 35.17 K/mm3 (4.00-11.30)
[2019-01-15 12:39] LABS: Alanine Aminotransfer (ALT/SGP 30 U/L (12-78); Albumin, Blood 2.2 g/dL (3.4-5.0); Albumin/Globulin Ratio 0.5 (0.8-1.8); Alk Phos 367 U/L (50-136); Anion Gap 11 mmol/L (6-16); Aspartate Aminotrans (AST/SGOT 59 U/L (12-37); Bilirubin, Total 0.3 mg/dL (0.1-1.0); Blood Urea Nitrogen 40 mg/dL (8-24); Bun/Creatinine Ratio 44.2 (12.0-20.0); CO2, Blood 25 mmol/L (21-32); Chloride, Blood 104 mmol/L (98-108); Creatinine, Blood 0.91 mg/dL (0.40-1.00); Globulin, Blood 4.6 g/dL (2.2-4.0); Glomerular Filtration Rate >60 (60-); Glucose, Blood 179 mg/dL (70-99); Potassium, Blood 4.7 mmol/L (3.5-5.5); Sodium, Blood 140 mmol/L (136-145); Total Protein, Blood 6.8 g/dL (6.4-8.2)
[2019-01-15 12:40] LABS: Bilirubin, Urine Neg (Neg); Blood, Urine 2+ (Neg); Glucose Qualitative, Urine Neg (Neg); Ketones, Urine 1+ (Neg); Leukocyte Esterase, Urine 2+ (Neg); Nitrite, Urine Neg (Neg); Protein, Urine 2+ (Neg); Specific Gravity, Urine 1.015 (1.003-1.022); Urobilinogen, Urine NORM (Normal)
[2019-01-15 12:52] LABS: Appearance, Urine Clear (Clear); Color, Urine Yellow (P-Yellow)
[2019-01-15 12:53] LABS: Bacteria Mod /hpf; Squamous Epithelial Cells Few /hpf (Few); White Blood Cells, Urine 25-50 /hpf (0-5)
[2019-01-15] MEDS ORDERED: AMOCLA500 PO (12:57)
[2019-01-15] MEDS ORDERED: DOCU100 PO (15:20)
[2019-01-15] MEDS ORDERED: THERA-D2000 UNIT PO (15:20)
[2019-01-15] MEDS ORDERED: HYDR1TAB94 PO (15:21)
[2019-01-15] MEDS ORDERED: BASAGLAR K100 UNIT/1 SC (15:22)
[2019-01-15] MEDS ORDERED: ENOX80I SC (15:22)
[2019-01-15] MEDS ORDERED: Humalog100 UNIT/3 SC (15:25)
[2019-01-15 16:50] LABS: Calcium, Ionized (POC) 1.02 mmol/L (1.10-1.46); Chloride (POC) 107 mmol/L (98-108); Creatinine (POC) 0.9 mg/dL (0.6-1.0); Glucose (ISTAT POC) 211 mg/dL (70-99); Hemoglobin (POC) 10.2 g/dL (12.0-16.0); Potassium (POC) 4.7 mmol/L (3.5-5.5); Sodium (POC) 140 mmol/L (135-148); Total CO2 (POC) 21 mmol/L (21-32)
[2019-01-15 17:36] LABS: Percent Saturation 24.8 % (15.0-50.0)
--- NOTE | 2019-01-15 18:43 | NUR ---
PT ARRIVES TO ICU AT 1740. REPORT FROM BHASKAR SIDHU. PT C/O ABD PAIN AND NAUSEA. POOR HISTORIAN, STATES "OUCH" c ALL CARE PROVIDED. A&OX 2. KEEPS EYES CLOSED, FOLLOWS SIMPLE DIRECTIONS RELUCANTLY. PT PALE, SKIN AND MUCUS MEMBRANES DRY. LUNGS DECREASED IN BASES. HYPOTENSION NOTED, IVF STARTED. AWAITING FFP. ABD DISTENED, TENDER TO PALPATION. RECTAL TUBE PLACED IN ER D/C'D D/T POOR PLACEMENT. LARGE STOOL BALL REMOVED FROM RECTUM. STOOL MAROON, RECTAL TUBE PLACED, LOOSE MARROON DRAINAGE OUT. WALKING BOOT TO RIGHT FOOT FROM PREVIOUS ANKLE FX c SURGICAL REPAIR ON 11/27. DR GIVENS AND DR CASTANO UPDATED ON PT CONDITION. WILL REPORT TO ONCOMING NURSE.
[2019-01-15 19:02] LABS: Hemoglobin 9.2 g/dL (11.5-16.0)
[2019-01-15 19:18] LABS: International Normalized Ratio 1.3; Prothrombin Time Results 13.5 Sec (9.7-11.5)
--- NOTE | 2019-01-15 20:00 | NUR ---
ASSUMED CARE OF PT AT 1915. REPORT RECEIVED AT BEDSIDE. PT PRESENTS IN BED, RESTING WITH EYELIDS CLOSED. PT IN NO DISTRESS. IN PROGRESS OF HAVING 500 ML BOLUS OF NORML SALINE. BLOOD PRESSURES MAINTAIN WITH MAP > 65. WILL CLOSELY MONITOR. PT HAS DRAINAGE OF SOMEWHAT THICK STOOL FROM [place]. WILL REVIEW CHART AND PLAN OF CARE FOR THIS PT.
[2019-01-15] MEDS ORDERED: MIRALAX17 GM PO (20:03)
[2019-01-15] MEDS ORDERED: BISA10S PR (20:04)
[2019-01-15] MEDS ORDERED: Milk Of Ma400 MG/5 M PO (20:05)
[2019-01-15] MEDS ORDERED: Anti-Diarrheal2 MG PO (20:05)
[2019-01-15] MEDS ORDERED: Fleet Enema132 ML PR (20:05)
--- NOTE | 2019-01-16 | NUR ---
PT HAS RECEIVED TWO UNITS OF FFP, AND IN PROCESS OF ONE UNIT PRBC'S. DR CASTANO HAS COME IN TO SEE PT THIS EVENING. ORDERS RECEIVED. PT CONTINUES TO MAINTAIN ADEQUATE BLOOD PRESSURES. TO RECEIVE LACTULOSE ENEMA PER RENEA SECONDARY TO PT HAVING AN AMMONIA LEVEL 162. NO S/S ADVERSE OR TRANSFUSION REACTIONS TO NOTE. PT REMAINS CONFUSED, AND RESISTS CARE. DOES PINCH IF SHE IS ALLOWED. WILL CONTINUE TO MONITOR PT.
--- NOTE | 2019-01-16 03:01 | NUR ---
PT RECEIVES DOSE OF LACTULOSE PER ENEMA. SHE TOLERATES THIS WELL. DEMONSTRATED NO DISCOMFORT OR ISSUES DURING PROCESS.
[2019-01-16 04:39] LABS: BASOPHILS PERCENT AUTO 0 % (0-2); EOSINOPHILS ABSOLUTE AUTO 0.01 K/mm3 (0.00-0.68); EOSINOPHILS PERCENT AUTO 0 % (0-6); Hematocrit 25.9 % (33.0-51.0); Hemoglobin 8.2 g/dL (11.5-16.0); IMMATURE GRAN ABSOLUTE AUTO 1.63 K/mm3 (0.00-0.10); IMMATURE GRAN PERCENT AUTO 4 % (0-1); LYMPHOCYTES ABSOLUTE AUTO 1.98 K/mm3 (0.84-5.20); LYMPHOCYTES PERCENT AUTO 5 % (21-46); MONOCYTES ABSOLUTE AUTO 1.74 K/mm3 (0.16-1.47); MONOCYTES PERCENT AUTO 4 % (4-13); Mean Corpuscular HGB 23.6 pg (26.0-34.0); Mean Corpuscular HGB Conc 31.7 g/dL (31.5-36.5); Mean Platelet Volume 9.3 fL (9.1-12.4); NEUTROPHILS ABSOLUTE AUTO 34.61 K/mm3 (1.96-9.15); NEUTROPHILS PERCENT AUTO 87 % (41-73); Platelet Count 374 K/mm3 (150-400); RDW Coefficient Variation 17.7 % (11.7-14.2); RDW Standard Deviation 45.7 fL (35.1-46.3); Red Blood Cell Count 3.48 M/mm3 (3.80-5.20); White Blood Cell Count 40.07 K/mm3 (4.00-11.30)
[2019-01-16 04:42] LABS: Mean Corpuscular Volume 74 fL (80-100)
[2019-01-16 04:52] LABS: International Normalized Ratio 1.15
[2019-01-16 04:58] LABS: Alanine Aminotransfer (ALT/SGP 35 U/L (12-78); Albumin, Blood 2.3 g/dL (3.4-5.0); Albumin/Globulin Ratio 0.7 (0.8-1.8); Alk Phos 283 U/L (50-136); Anion Gap 11 mmol/L (6-16); Aspartate Aminotrans (AST/SGOT 88 U/L (12-37); Bilirubin, Total 0.6 mg/dL (0.1-1.0); Blood Urea Nitrogen 45 mg/dL (8-24); Bun/Creatinine Ratio 53.4 (12.0-20.0); CO2, Blood 23 mmol/L (21-32); Calcium, Blood 8.2 mg/dL (8.5-10.1); Chloride, Blood 112 mmol/L (98-108); Creatinine, Blood 0.84 mg/dL (0.40-1.00); Globulin, Blood 3.5 g/dL (2.2-4.0); Glomerular Filtration Rate >60 (60-); Glucose, Blood 180 mg/dL (70-99); Magnesium, Blood 2.2 mg/dL (1.6-2.4); Potassium, Blood 3.7 mmol/L (3.5-5.5); Sodium, Blood 146 mmol/L (136-145); Total Protein, Blood 5.8 g/dL (6.4-8.2)
--- NOTE | 2019-01-16 06:31 | NUR ---
18 GAUGE 8CM POWER GLIDE PLACED IN RIGHT UPPER ARM. PT TOLERATES THIS WELL. HAVE DRAWN AM LABS FROM LINE. PT ABLE TO HOLD MORE CONVERSATION THIS AM, BUT DOES MOSTLY REMAIN DISORIENTED. HAVE REMOVED BOOT/BRACE FROM RIGHT LOWER EXTREMITY. GOOD DISTAL CMS CHECKS. HAS RECEIVED ONE UNIT PRBC'S THIS NIGHT. WILL CONTINUE TO MONITOR PT, AND WILL REPORT OFF TO ONCOMING RN.
--- NOTE | 2019-01-16 08:42 | NUR ---
MD VISIT DR. GIVENS IN
--- NOTE | 2019-01-16 15:03 | NUR ---
Met with pt she is sleepy tries to wake up but very fatigued and repeats herself. attemtpted to call family no answer. attetmpted to speak with pt to somulent. Pt neighbor showed up. pt responded well to him. She did however tell him she was dying. Pt and her friends that come to visit have all been close neighbors and friends for 30 years. He was very distraught. He stated he will call family when he gets home and rally her friends. Was not able to share information with him as he is not next of kin he did relay much information on her care and has been seeing her at the SNF.
--- NOTE | 2019-01-16 17:52 | NUR ---
Was able to contact patients sister Leona Wilhelm [phone]. She lives in [place] and has difficultcell receptions. She contacted her daughter and we had a confrence call. The patients neighbors of thirty plus years and beloved friends were also in and contact patients family. We carefully reviewed the patients chart notes and diagnostics as the family was unsure about all her medical conditions. We discussed current paln of care and possible prognosis, code status and pt future care needs. The were open to discussion and receptive as they were unsure what her illness was. They found her will at her home when they were here. They did not find an advance directive. They feel with her current staus she would not want CPR or life support on a ventilator. They will discuss it tonight and plan on returning to [place] tomorrow. They understand that if she would have an event they may get a phone call. They demonstrated understanding and were willing to be decision makers for her care. They expressed love and support. They wanted to know if they should come right away. Advised that they sould come up as soon as they can as she will also need a middle or intermediate school principal plan and strategies of care as she may not be able to return to her home. OUr office number given and will assist with plan of care. advised nursing if any changes tonight to update family so they can plan.
[2019-01-16 18:14] LABS: Hemoglobin 9.1 g/dL (11.5-16.0)
--- NOTE | 2019-01-16 19:30 | NUR ---
[place] of Care: Patient alert and oriented, sitting upright in bed. Denies pain while at rest, but c/o pain to legs with any touch or movement. VSS, O2-98% on RA, denies dyspnea/SOB. No s/s of active GI bleeding at this time. Rectal tube in place, draining small amount of liquid/loose brown stool. Storey cath patent and intact, draining clear yellow urine. Power-glide to CARMINA patent and intact, infusing NS at 125ml/hr without difficulty. Calm and cooperative with staff. States to be comfortable following repositioning to lt side. Will continue to monitor for pain, safety, comfort.
[2019-01-17 04:23] LABS: BASOPHILS ABSOLUTE AUTO 0.09 K/mm3 (0.00-0.23); BASOPHILS PERCENT AUTO 0 % (0-2); EOSINOPHILS ABSOLUTE AUTO 0.09 K/mm3 (0.00-0.68); EOSINOPHILS PERCENT AUTO 0 % (0-6); Hematocrit 27.3 % (33.0-51.0); Hemoglobin 8.7 g/dL (11.5-16.0); IMMATURE GRAN ABSOLUTE AUTO 0.89 K/mm3 (0.00-0.10); IMMATURE GRAN PERCENT AUTO 4 % (0-1); LYMPHOCYTES ABSOLUTE AUTO 3.64 K/mm3 (0.84-5.20); LYMPHOCYTES PERCENT AUTO 16 % (21-46); MONOCYTES ABSOLUTE AUTO 1.45 K/mm3 (0.16-1.47); MONOCYTES PERCENT AUTO 6 % (4-13); Mean Corpuscular HGB 24.2 pg (26.0-34.0); Mean Corpuscular HGB Conc 31.9 g/dL (31.5-36.5); Mean Corpuscular Volume 76 fL (80-100); Mean Platelet Volume 9.2 fL (9.1-12.4); NEUTROPHILS ABSOLUTE AUTO 17.08 K/mm3 (1.96-9.15); NEUTROPHILS PERCENT AUTO 74 % (41-73); Platelet Count 300 K/mm3 (150-400); RDW Standard Deviation 48.6 fL (35.1-46.3); Red Blood Cell Count 3.59 M/mm3 (3.80-5.20); White Blood Cell Count 23.24 K/mm3 (4.00-11.30)
[2019-01-17 04:41] LABS: Alanine Aminotransfer (ALT/SGP 23 U/L (12-78); Albumin/Globulin Ratio 0.6 (0.8-1.8); Alk Phos 229 U/L (50-136); Anion Gap 9 mmol/L (6-16); Aspartate Aminotrans (AST/SGOT 49 U/L (12-37); Bilirubin, Total 0.6 mg/dL (0.1-1.0); Blood Urea Nitrogen 23 mg/dL (8-24); Bun/Creatinine Ratio 35.7 (12.0-20.0); CO2, Blood 22 mmol/L (21-32); Calcium, Blood 7.7 mg/dL (8.5-10.1); Chloride, Blood 116 mmol/L (98-108); Creatinine, Blood 0.64 mg/dL (0.40-1.00); Globulin, Blood 3.1 g/dL (2.2-4.0); Glomerular Filtration Rate >60 (60-); Glucose, Blood 101 mg/dL (70-99); Potassium, Blood 2.7 mmol/L (3.5-5.5); Sodium, Blood 147 mmol/L (136-145); Total Protein, Blood 5.1 g/dL (6.4-8.2)
--- NOTE | 2019-01-17 08:00 | NUR ---
ASSUMED CARE: RECEIVED REPORT FROM NOC RN. PT APPEARS TO BE SLEEPING IN THE BED UPON ENTERING THE ROOM. NO ACUTE DISTRESS NOTED. VSS. PT WAKES EASILY. LIGHTS ARE TURNED ON. PT APPEARES TO BE A/O X 3 ABLE TO ANSWER QUESTION APPROPRITELY. WILL CONTINUE TO MONITOR AND ASSESS FURTHER.
--- NOTE | 2019-01-17 14:32 | NUR ---
Received call from bedside nurse Paula and Pt requests to complete a POLST. Pt is resting in bed upon arrival. Pt is A&Ox4 and denies pain at this time. Pt's sister and niece is at bedside. Educated Pt on POLST and each section to complete. Educated on life sustaining measures including risk factors. Pt chooses CPR and Limited Treatment. Assisted with completing personal information portion of POLST. Pt and family report no concerns at this time. Spoke with bedside nurse Paula. Placed POLST in chart and Paula will have MD sign POLST during rounds. Palliative Care will obtain fax copy of POLST to medical records after MD signature.
--- NOTE | 2019-01-17 16:04 | NUR ---
UPDATE: DR CASTANO HAS BEEN IN TO TALK WITH PT. PT AGRESS TO COLONOSCOPY TO DETERMIN WHERE BLEEDING IS COMING FROM. COLON PREP IS TO BE STARTED AT 1800 AND PT IS BE ON WATER ONLY AND THEN NPO AFTER 0700. PT EDUCATED BY DR CASTANO SHE HAS CIRRHOSIS, PT CONCERNED, BUT RECEPTIVE. DR CASTANO STATES HE WILL GO INTO MORE DETAIL LATER ABOUT HER NEW CIRRHOSIS DIAGNOSIS AND HOW TO TREAT. PT HAS LOTS OF VISITORS IN THE ROOM. SHE STATES SHE WANTS TO CRY, BUT SHE ISN'T GOING TO. SHE APPEARES TO BE IN GOOD SPIRITS FOR THE MOST PART NOTED BY LAUGHING AND TALKING WITH STAFF AND VISITORS.
--- NOTE | 2019-01-17 17:31 | NUR ---
TRANSFER: PT TO PCU 14 REPORT GIVEN TO KALYAN Colby RN. NO ACUTE DISTRESS NOTED PT TRANSFERED TO PCU BED VIA SLIDER AND 4 STAFF MEMBERS.
--- NOTE | 2019-01-17 21:16 | NUR ---
MED RECONCILIATION CANNOT COMPLETE PATIENTS MED REC SHE CANNOT REMEMBER WHAT SHE IS CURRENTLY TAKING AND MILA HAS NOT SENT A LIST OF CURRENT MEDICATIONS.
[2019-01-18 04:20] LABS: BASOPHILS ABSOLUTE AUTO 0.07 K/mm3 (0.00-0.23); BASOPHILS PERCENT AUTO 0 % (0-2); EOSINOPHILS PERCENT AUTO 2 % (0-6); Hematocrit 27.6 % (33.0-51.0); Hemoglobin 8.8 g/dL (11.5-16.0); IMMATURE GRAN ABSOLUTE AUTO 0.48 K/mm3 (0.00-0.10); IMMATURE GRAN PERCENT AUTO 3 % (0-1); LYMPHOCYTES ABSOLUTE AUTO 2.69 K/mm3 (0.84-5.20); LYMPHOCYTES PERCENT AUTO 14 % (21-46); MONOCYTES ABSOLUTE AUTO 1.29 K/mm3 (0.16-1.47); MONOCYTES PERCENT AUTO 7 % (4-13); Mean Corpuscular HGB 24.6 pg (26.0-34.0); Mean Corpuscular HGB Conc 31.9 g/dL (31.5-36.5); Mean Corpuscular Volume 77 fL (80-100); Mean Platelet Volume 9.3 fL (9.1-12.4); NEUTROPHILS ABSOLUTE AUTO 14.16 K/mm3 (1.96-9.15); NEUTROPHILS PERCENT AUTO 74 % (41-73); Platelet Count 327 K/mm3 (150-400); RDW Coefficient Variation 18.8 % (11.7-14.2); RDW Standard Deviation 50.4 fL (35.1-46.3); Red Blood Cell Count 3.57 M/mm3 (3.80-5.20); White Blood Cell Count 19.09 K/mm3 (4.00-11.30)
[2019-01-18 04:50] LABS: Alanine Aminotransfer (ALT/SGP 25 U/L (12-78); Albumin, Blood 2.1 g/dL (3.4-5.0); Albumin/Globulin Ratio 0.6 (0.8-1.8); Alk Phos 229 U/L (50-136); Anion Gap 9 mmol/L (6-16); Aspartate Aminotrans (AST/SGOT 38 U/L (12-37); Bilirubin, Total 0.4 mg/dL (0.1-1.0); Blood Urea Nitrogen 7 mg/dL (8-24); Bun/Creatinine Ratio 12.3 (12.0-20.0); CO2, Blood 22 mmol/L (21-32); Calcium, Blood 7.4 mg/dL (8.5-10.1); Chloride, Blood 111 mmol/L (98-108); Creatinine, Blood 0.57 mg/dL (0.40-1.00); Globulin, Blood 3.3 g/dL (2.2-4.0); Glomerular Filtration Rate >60 (60-); Glucose, Blood 221 mg/dL (70-99); Potassium, Blood 3.4 mmol/L (3.5-5.5); Sodium, Blood 142 mmol/L (136-145); Total Protein, Blood 5.4 g/dL (6.4-8.2)
--- NOTE | 2019-01-18 05:02 | NUR ---
SHIFT SUMMARY: PATIENT POTASSIUM AND HGB IMPROVING, VSS, CALL LIGHT USED APPROPRIATLY AND IN REACH. PATIENT ENCOURAGED FREQUENTLY TO DRINK THE COLONOSCOPY PREP, PATIENT C/O NAUSEA AND STATES SHE MUST TAKE IT SLOW OR SHE MIGHT VOMIT. PATIENT FECES STILL DARK BUT VERY LIQUID AT THIS POINT. MONITORING CLOSELY, NO ISSUES THROUGHOUT THE NIGHT.
--- NOTE | 2019-01-18 07:42 | NUR ---
PT HAS DRANK HALF OF COLONOSCOPY PREP T/O THE NIGHT, UPON ENTERNING ROOM PT STS "I DON'T WANT TO I DON'T LIKE THE TASTE" THEN DEMANDS TO KNOW A TIME THAT SHE WILL BE GOING FOR PROCEDURE, PT EDUCATED THAT LEAVING FOR PROCEDURE IS CONTENGENT ON HER EMPTYING BOWELS WITH USE OF PREP, PT STS "WELL IF HE DON'T DO IT TODAY HE'S NOT DOING IT" PT THEN STS "COME OVER HERE SO I CAN THROW UP ON YOU" PCT REMINDS PT THAT THREATEDING STAFF WILL NOT BE TOLERATED PT STS "NO IT'S NOT NICE BUT I DON'T CARE I'M DOING IT" PCT OFFERS PT SEVERAL MEANS TO DRINK HER PREP PT REFUSED. CALLED DR CASTANO WHO IS MADE OF PT'S BEHAVIOR AND REFUSAL, DR CASTANO'S ORDER IS TO STOP OFFERING PREP SHE IS NOT WILLING. PT EDUCATED STS "WELL I'M NOT DOING IT, AND IF HE DON'T DO IT TODAY HE'S NOT DOING IT"
--- NOTE | 2019-01-18 16:48 | NUR ---
PT IS NEARLY COMPLETED WITH ORAL PREP, PT STS "I AM SHORT OF BREATH WHEN I DRINK THIS" PT ASKED WHEN SOB BEGAN SHE HAS NOT REPORTED TO THIS RN IN 10 HOURS OF CARE THAT SHE IS EXPERIENCING ANY SOB. PT STS "WELL I AM THAT'S WHY I DON'T WANT TO DRINK IT" NO SOB NOTED. RECTAL TUBE ASSESSED STOOL OUTPUT HAS SLOWED BUT REMAINS COFFEE COLORED WITH PARTICLES. PT STS "WHEN IS THAT DR TAKING ME FOR THIS THING" PT REMINDED AGAIN THAT ONCE SHE FINISHES DRINING HER PREP AND STOOL IS CLEAR THAT DR CASTANO WILL TAKE HER FOR PROCEEDURE. PT STS "WHAT HAPPENS IF IT'S NOT READY WHEN I FISNIH THIS?" PT IS AGAIN EDUCATED THAT PER V/O FROM DR CASTANO THAT ANOTHER BOTTLE WILL BE BEGAN PT STS "I AM NOT DRINKING ANY MORE THAN YOU MADE ME DRINK" PT REMINDED THAT JUST AFTER 0700 THIS AM AFTER THIS RN SPOKE WITH DR CASTANO ABOUT HER INTERMITTENT REFUSAL THAT SHE WOULD NOT BE REQUIRED TO DRINK ANY MORE PREP BUT CONTINUED TO DO SO OF HER OWN FREE WILL THEN BEGAN CRITICING THIS RN FOR "BEING TOO SERIOUS" AND ACCUSING THIS RN OF HATING HER SHE WAS BEING PROVIDED WITH HER OPTIONS AND RIGHTS A PATIENT. PT STS "I'M GOING TO KILL MYSELF THEN, DO YOU HAVE SOMETHING HANDY THAT I CAN USE" PT IS INFORMED THAT SHE IS VERBALLY EXPRESSING SUICIDAL IDEATION THAT SUICIDE PROCAUTIONS WILL BE INITIATED PT STS "DON'T BE SO STUPID! WHY ARE YOU ALWAYS SO SERIOUS?" PT EDUCATED THAT SUICIDE IS A VERY SERIOUS THREAT TO MAKE AND IT WILL NOT BE TAKEN LIGHTLY. PT STS "WELL I'M NOT SERIOUS, WHY DO YOU ALWAYS HAVE TO BE SO SERIOUS" PT REMINDED THAT THREATENING SUICIDE IS NOT A JOKING MATTER THAT IT WILL NOT BE TAKEN SUCH. PT STS "I'M NOT SERIOUS GEEZ" PT ASSURES THIS RN THAT SHE HAS NO PLANS OF HARMING SELF THAT SHE WILL MAINTAIN SAFETY. PT STS "BUT I WILL NEVER HIRE THIS DR AGAIN, I HAVE NEVER HEARD OF ANY DR NEEDING ANYONE TO FINISH AN ENTIRE BOTTLE OR DRINK MORE" PT REMINDED THAT IT IS CASE SPECIFIC THAT NOT EVERYONE'S TREATMENT WILL BE THE SAME. ATTEMPTED TO OBTAIN VITALS PT STS "GET OUT OF HERE I DON'T WANT YOU IN HERE LIKE THAT"
--- NOTE | 2019-01-18 18:34 | NUR ---
SHIFT NOTE PT HAS JUST FINISHED ORAL PREP, TEA COLORED STOOL NOTED WITH SMALL PARTICILES. PT HAS BEEN CLEANED AT END OF SHIFT. COCCYX BREAK DOWN IS ASSESSED AND BARRIER CREAM APPLIED. SEE ADDITIONAL NOTES
--- NOTE | 2019-01-18 19:15 | NUR ---
ASSUMED CARE OF PT, SHE APPEARS TO BE SLEEPING AT THIS TIME, RESP EVEN AND REGULAR, EXPRESSION RELAXED, NO GRIMACING OR RESTLESSNESS NOTED.
--- NOTE | 2019-01-18 19:40 | NUR ---
PT AROUSES EASILY TO VERBAL STIMULI FOR HS ASSESSMENT AND VITAL SIGNS, SHE DENIES PAIN AT REST HOWEVER DOES COMPLAIN OF PAIN WITH MOVEMENT OF BEDDING OR RIGHT FOOT, SHE DECLINES PAIN MEDICATION AND RATES PAIN IMPROVED WITH REPOSITIONING OF FOOT AND LOOSENING OF BLANKETS OVER RIGHT ANKLE, WILL APPLY BED CRADLE WITH NEXT TURN. SHE DENIES CURRENT N/V, DENIES NUMBNESS/TINGLING, DENIES CP/PRESSURE, DENIES SOB/DYSPNEA. LUNGS ARE CLEAR BILAT WITH DIM BASES, SATS 96% ON ROOM AIR, NO INCREASED WORK OF BREATHING IS NOTED AT REST AND PT IS SPEAKING IN FULL SENTENCES. HRR, PACED, MURMUR NOTED, PT STATES THAT SHE HAS HAD MURMUR SINCE , PRESSURE MAINTAINING, PULSES FULL X 4 EXTREMITIES, CAP REFILL IS BRISK. NORMOACTIVE BOWEL TONES PRESENT X 4, ABD SOFT, NO GRIMACING/GUARDING WITH LIGHT PALPATION, RECTAL TUBE REMAINS IN PLACE DRAINING LIQUID BROWN STOOL AT THIS TIME. FISHER CATH IN PLACE, PATENT AND DRAINING CLEAR YELLOW URINE AT THIS TIME. WILL CONT TO MONITOR.
[2019-01-19 03:22] LABS: BASOPHILS ABSOLUTE AUTO 0.07 K/mm3 (0.00-0.23); BASOPHILS PERCENT AUTO 1 % (0-2); EOSINOPHILS ABSOLUTE AUTO 0.59 K/mm3 (0.00-0.68); EOSINOPHILS PERCENT AUTO 4 % (0-6); Hematocrit 28.2 % (33.0-51.0); Hemoglobin 8.7 g/dL (11.5-16.0); IMMATURE GRAN ABSOLUTE AUTO 0.33 K/mm3 (0.00-0.10); IMMATURE GRAN PERCENT AUTO 2 % (0-1); LYMPHOCYTES ABSOLUTE AUTO 2.44 K/mm3 (0.84-5.20); LYMPHOCYTES PERCENT AUTO 16 % (21-46); MONOCYTES ABSOLUTE AUTO 1.04 K/mm3 (0.16-1.47); MONOCYTES PERCENT AUTO 7 % (4-13); Mean Corpuscular HGB 23.8 pg (26.0-34.0); Mean Corpuscular HGB Conc 30.9 g/dL (31.5-36.5); Mean Corpuscular Volume 77 fL (80-100); Mean Platelet Volume 9.1 fL (9.1-12.4); NEUTROPHILS ABSOLUTE AUTO 10.79 K/mm3 (1.96-9.15); NEUTROPHILS PERCENT AUTO 71 % (41-73); Platelet Count 298 K/mm3 (150-400); RDW Coefficient Variation 20.5 % (11.7-14.2); Red Blood Cell Count 3.65 M/mm3 (3.80-5.20); White Blood Cell Count 15.26 K/mm3 (4.00-11.30)
[2019-01-19 03:46] LABS: Anion Gap 6 mmol/L (6-16); Blood Urea Nitrogen 3 mg/dL (8-24); Bun/Creatinine Ratio 5.4 (12.0-20.0); CO2, Blood 25 mmol/L (21-32); Calcium, Blood 7.5 mg/dL (8.5-10.1); Chloride, Blood 111 mmol/L (98-108); Creatinine, Blood 0.55 mg/dL (0.40-1.00); Glomerular Filtration Rate >60 (60-); Glucose, Blood 167 mg/dL (70-99); Potassium, Blood 2.9 mmol/L (3.5-5.5); Sodium, Blood 142 mmol/L (136-145)
[2019-01-19 04:02] LABS: Phosphorus, Blood 0.7 mg/dL (2.5-4.9)
--- NOTE | 2019-01-19 05:22 | NUR ---
SHIFT SUMMARY: TOOK OVER CARE OF PATIENT AT APPROX 0300, PATIENT SLEEPING. VSS, BED LOW AND LOCKED WITH CALL LIGHT WITHIN REACH. PHOS LAB VALUE RETURNED AT 0.7, MD NOTIFIED WITH ORDERS RECIEVED. KPHOS TO BE GIVEN IV. HOLDING 0600 GOLYTLE AT THIS TIME D/T LAB VALUES AND FAIRLY CLEAR BOWEL MOVEMENT. MONITORING CLOSELY
--- NOTE | 2019-01-19 10:33 | NUR ---
ASSUMED CARE APPROXIMATELY 0700; PT ALERT; SOMETIMES FORGETFUL; PT HAS RECTAL TUBE IN PLACE W/ GREEN LIQUID STOOL; FISHER IN PLACE DRAINING YELLOW URINE; PT ENCOURAGED TO MOVE AND WORK W/ PHYSICAL THERAPY TO IMPROVE MOBILITY; PT SCHEDULED FOR SCOPE TODAY, GWEN PROTOCOL RESTARTED; PT COMPLIANT W/ CARE AFTER TIME TO DISCUSS DESIRES; FAMILY AT BEDSIDE MID AM; PT DENIES CHEST PAIN; DENIES NEEDS AT THIS TIME; CALL LIGHT IN REACH; BED IN LOWEST POSITION; WILL CONTINUE TO MONITOR AND ASSESS
[2019-01-19 13:24] LABS: Albumin, Blood 2.3 g/dL (3.4-5.0); Anion Gap 9 mmol/L (6-16); Blood Urea Nitrogen 3 mg/dL (8-24); Bun/Creatinine Ratio 5.9 (12.0-20.0); CO2, Blood 23 mmol/L (21-32); Chloride, Blood 107 mmol/L (98-108); Creatinine, Blood 0.51 mg/dL (0.40-1.00); Glomerular Filtration Rate >60 (60-); Glucose, Blood 235 mg/dL (70-99); Phosphorus, Blood 2.2 mg/dL (2.5-4.9); Potassium, Blood 3.3 mmol/L (3.5-5.5); Sodium, Blood 139 mmol/L (136-145)
--- NOTE | 2019-01-19 16:53 | NUR ---
UPDATE PT WORKED W/ Pt AND Ot TODAY; SPIRITS UP AND DESIRE TO IMPROVE AMBULATION AND STRENGTH; FAMILY AND NEIGHBORS TO BEDSIDE TO VISIT; PT ON RA; PT C/O DISCOMFORT W/ RECTAL TUBE; BLE TENDER TO TOUCH; DR. CASTANO TO SEE PT AND ASSESS FOR SCOPE PROCEDURE; PT TO HAVE PROCEDURE TODAY; CALL LIGHT IN REACH; BED IN LOWEST POSITION; WILL CONTINUE TO MONITOR UNTIL HAND OFF TO NOC RN
--- NOTE | 2019-01-19 19:55 | NUR ---
01/19/191954 Sulema Alvarez History, Chart, Medications and Allergies reviewed before start of procedure. PATIENT CONFIRMS NPO STATUS AND AGREES WITH SCHEDULED PROCEDURE. MONITOR INTACT WITH CONTINUOUS PULSE OXIMETRY AND INTERMITTENT BP. O2 VIA N/C INTACT THROUGHOUT SEDATION/PROCEDURE. 3-LEAD EKG REVIEWED WITH PHYSICIAN PRIOR TO START OF PROCEDURE. PATIENT DETERMINED TO BE ASA APPROPRIATE FOR PROPOFOL SEDATION PRIOR TO START OF PROCEDURE BY DR. CASTANO. CARDIAC MODERATE STENOSIS PER DR. FINNEY AND ECHO. SPOKE WITH DR. CASIANO AND DR. CASTANO AND BOTH AGREE PT IS APPROPRIATE FOR NURSE ADMINISTERED PROPOFAL SEDATION.
--- NOTE | 2019-01-20 01:45 | NUR ---
APPROX 0130 PATIENT HR DROPPED INTO 40'S BUT REMAINED 100% PACED
[2019-01-20 04:17] LABS: Hematocrit 25.4 % (33.0-51.0); Mean Corpuscular HGB 24.8 pg (26.0-34.0); Mean Corpuscular HGB Conc 31.5 g/dL (31.5-36.5); Mean Corpuscular Volume 79 fL (80-100); Mean Platelet Volume 9.6 fL (9.1-12.4); Platelet Count 262 K/mm3 (150-400); RDW Coefficient Variation 21.2 % (11.7-14.2); Red Blood Cell Count 3.23 M/mm3 (3.80-5.20); White Blood Cell Count 13.61 K/mm3 (4.00-11.30)
[2019-01-20 04:50] LABS: Albumin, Blood 1.7 g/dL (3.4-5.0); Anion Gap 9 mmol/L (6-16); Blood Urea Nitrogen 2 mg/dL (8-24); Bun/Creatinine Ratio 3.8 (12.0-20.0); CO2, Blood 24 mmol/L (21-32); Calcium, Blood 7.3 mg/dL (8.5-10.1); Chloride, Blood 112 mmol/L (98-108); Creatinine, Blood 0.52 mg/dL (0.40-1.00); Glomerular Filtration Rate >60 (60-); Glucose, Blood 127 mg/dL (70-99); Phosphorus, Blood 2.1 mg/dL (2.5-4.9); Potassium, Blood 2.8 mmol/L (3.5-5.5); Sodium, Blood 145 mmol/L (136-145)
--- NOTE | 2019-01-20 05:31 | NUR ---
SHIFT SUMMARY: PATIENT ARRIVED BACK TO UNIT FROM [facility] AT APPROX 2130, PATIENT ALERT AND VSS. THUROUGH SKIN CARE AND PROTECTIVE BARRIER CREAM PLACED AT PATIENTS RECTUM AND COCCYX AREA DUE TO IRRITATION FROM RECTAL TUBE AND PATIENTS RELUCTANCE TO ALLOW TURNING PREVIOUSLY. PATIENT MUCH MORE MOTIVATED TO TURN D/T EDUCATION FROM OT AND PT. CALL LIGHT WITHIN REACH, BED LOW AND LOCKED AND MONITORED CLOSELY.
--- NOTE | 2019-01-20 08:00 | NUR ---
PT LAYING IN BED, IS VERY REACTIVE TO ANYTHING GOING ON, WHEN THIS NURSE WALKED AROUND HER BED, SHE RESPONDS DRAMATICALLY TO WATCH HER FOOT, WAS ALREADY AROUND BED, AND HER FOOT IS A FOOT AWAY FROM THE END OF THE BED, SO NO WAY TO BUMP IT. EXPLAINED THAT TO HER, SHE SAID I JUST LIKE TO TELL EVERY ONE THAT, WHEN I WENT TO GIVE HER MEDS SHE SAYS OK BUT BE CAREFUL, I EXPLAINED THAT I AM ALWAYS CAREFUL, WHAT IS WRONG, WHY DID YOU SAY THAT, "OH I ALWAYS LIKE TO SAY THAT". A/OX3, COOPERATIVE WITH CARE, FOLLOWS COMMANDS WELL, DENIES PAIN AT THIS TIME, JUST REPORTS HER BOTTOM IS SORE, WILL CONTINUE TO TURN Q TWO HRS. MOVES UPPER EXT WELL, IS VERY CONCERNED ABOUT HER FEET, CAN WIGGLE THEM SLIGHTLY, LEANNE, CALL LIGHT IN REACH.
--- NOTE | 2019-01-20 16:15 | NUR ---
PT HAS BEEN TRANSFERRED TO MEDICAL FLOOR WITH TELE, REPORT WAS GIVEN TO ROSE MARIE SIDHU, PT WAS TOLD EARLIER THAT SHE WOULD BE GOING, SHE WAS AGREEABLE. ALL BELONGINGS WENT WITH HER.
--- NOTE | 2019-01-20 18:41 | NUR ---
SHIFT SUMMARY. 1604 PT TRANSFER FROM [facility]. PT TO HAVE EGD TOMORROW. ICE CHIPS AND WATER TILL 1200 01/20, THEN NPO.
--- NOTE | 2019-01-21 00:40 | NUR ---
LIQUID STOOL PT HAVING LIQUID, MUCOUSY STOOL TONIGHT. DAY ONE OF THIS TYPE OF STOOL. WILL PASS OFF IN REPORT.
[2019-01-21 04:49] LABS: BASOPHILS ABSOLUTE AUTO 0.07 K/mm3 (0.00-0.23); BASOPHILS PERCENT AUTO 0 % (0-2); EOSINOPHILS ABSOLUTE AUTO 0.51 K/mm3 (0.00-0.68); EOSINOPHILS PERCENT AUTO 3 % (0-6); Hemoglobin 8.4 g/dL (11.5-16.0); IMMATURE GRAN ABSOLUTE AUTO 0.18 K/mm3 (0.00-0.10); IMMATURE GRAN PERCENT AUTO 1 % (0-1); LYMPHOCYTES ABSOLUTE AUTO 2.44 K/mm3 (0.84-5.20); LYMPHOCYTES PERCENT AUTO 16 % (21-46); MONOCYTES ABSOLUTE AUTO 1.13 K/mm3 (0.16-1.47); MONOCYTES PERCENT AUTO 7 % (4-13); Mean Corpuscular HGB 24.7 pg (26.0-34.0); Mean Corpuscular HGB Conc 31.1 g/dL (31.5-36.5); Mean Corpuscular Volume 79 fL (80-100); Mean Platelet Volume 9.6 fL (9.1-12.4); NEUTROPHILS PERCENT AUTO 73 % (41-73); Platelet Count 239 K/mm3 (150-400); RDW Coefficient Variation 22.2 % (11.7-14.2); RDW Standard Deviation 60.5 fL (35.1-46.3); White Blood Cell Count 15.73 K/mm3 (4.00-11.30)
--- NOTE | 2019-01-21 04:50 | NUR ---
SHIFT SUMMARY PT HAS BEEN COMPLIANT AND KIND WITH CARE TONIGHT. A&OX4, CALL LT APPROP. HAVING LIQUID STOOL, JELLY LIKE CONSISTENCY. PT BEING CHANGED FREQUENTLY AND Q2H TURNS COMPLETE. COCCYX HAS SMALL PRESSURE SORE, AND SURROUNDING AGUSITN AREA IS EDEMATOUS AND EXCORIATED. ORANGE TOP CREAM APPLIED. NO RECTAL BLEEDING NOTED. TELE IN PLACE; NSR c PACED BEATS @ 94 BPM. PT HAS BEEN ONLY ICE CHIPS AND WATER SINCE MIDNIGHT, WILL BE COMPLETELY NPO AFTER NOON. NO OTHER CHANGES TO REPORT. WILL CONT TO MONITOR AND PROVIDE CARE UNTIL PRESUMED BY ONCOMING RN.
[2019-01-21 05:16] LABS: Anion Gap 8 mmol/L (6-16); Blood Urea Nitrogen 2 mg/dL (8-24); Bun/Creatinine Ratio 3.7 (12.0-20.0); CO2, Blood 25 mmol/L (21-32); Calcium, Blood 7.2 mg/dL (8.5-10.1); Chloride, Blood 111 mmol/L (98-108); Creatinine, Blood 0.55 mg/dL (0.40-1.00); Glomerular Filtration Rate >60 (60-); Glucose, Blood 132 mg/dL (70-99); Potassium, Blood 2.7 mmol/L (3.5-5.5); Sodium, Blood 144 mmol/L (136-145)
--- NOTE | 2019-01-21 16:18 | NUR ---
Physician notified Dr. Cary notified RE PO Potassium and if it was okay to give with small sip of water prior to EGD. Physician ok'd.
--- NOTE | 2019-01-21 16:58 | NUR ---
Shift Summary A/Ox3, has been cooperative with care. Patient seems to ache in R leg/ankle for most of the day, did not request anything for pain. PT/OT worked with her today. Pt states she is aware when she urinates; however, she has not called to be changed. Pt needs to be frequently checked because it seems she does not like to be repositioned as she is fearful of pain. Educated pt on the need to reposition and changed Q2H to prevent further skin breakdown. Lovenox held for EGD, Dr. Fierro aware. No other concerns at this time.
--- NOTE | 2019-01-21 18:04 | NUR ---
INT SDS VIA GURNEY. PT SKIN APPEARS PALE. DENIES NAUSEA AT THIS TIME. NPO STATUS CONFIRMED. HISTORY AND ALLERGIES REVIEWED. LUNGS DIMINISHED IN THE BASES, BUT SATS>90% ON RA.
--- NOTE | 2019-01-21 18:14 | NUR ---
#18 GUAGE EXTENDED DWELL CATHETER TO RIGHT UPPER ARM. DRESSING D&I-GOOD BLOOD RETURN.
--- NOTE | 2019-01-21 18:48 | NUR ---
01/21/19 1848 Jonathan Ovalle History, Chart, Medications and Allergies reviewed before start of procedure.MONITOR INTACT WITH CONTINUOUS PULSE OXIMETRY AND INTERMITTENT BP.3-LEAD EKG REVIEWED WITH PHYSICIAN PRIOR TO START OF PROCEDURE.O2 VIA N/C INTACT THROUGHOUT SEDATION/PROCEDURE. PATIENT DETERMINED TO BE ASA APPROPRIATE FOR PROPOFOL SEDATION PRIOR TO START OF PROCEDURE BY DR. CASTANO.
[2019-01-22 04:41] LABS: BASOPHILS ABSOLUTE AUTO 0.07 K/mm3 (0.00-0.23); BASOPHILS PERCENT AUTO 1 % (0-2); EOSINOPHILS ABSOLUTE AUTO 0.54 K/mm3 (0.00-0.68); EOSINOPHILS PERCENT AUTO 4 % (0-6); Hematocrit 27.3 % (33.0-51.0); Hemoglobin 8.4 g/dL (11.5-16.0); IMMATURE GRAN PERCENT AUTO 1 % (0-1); LYMPHOCYTES ABSOLUTE AUTO 2.15 K/mm3 (0.84-5.20); LYMPHOCYTES PERCENT AUTO 15 % (21-46); MONOCYTES ABSOLUTE AUTO 1.04 K/mm3 (0.16-1.47); MONOCYTES PERCENT AUTO 7 % (4-13); Mean Corpuscular HGB 24.9 pg (26.0-34.0); Mean Corpuscular HGB Conc 30.8 g/dL (31.5-36.5); Mean Corpuscular Volume 81 fL (80-100); NEUTROPHILS ABSOLUTE AUTO 10.08 K/mm3 (1.96-9.15); NEUTROPHILS PERCENT AUTO 72 % (41-73); Platelet Count 227 K/mm3 (150-400); RDW Coefficient Variation 22.5 % (11.7-14.2); RDW Standard Deviation 63.3 fL (35.1-46.3); Red Blood Cell Count 3.38 M/mm3 (3.80-5.20); White Blood Cell Count 13.98 K/mm3 (4.00-11.30)
[2019-01-22 05:05] LABS: Anion Gap 5 mmol/L (6-16); Blood Urea Nitrogen 2 mg/dL (8-24); Bun/Creatinine Ratio 3.7 (12.0-20.0); CO2, Blood 27 mmol/L (21-32); Calcium, Blood 7.3 mg/dL (8.5-10.1); Chloride, Blood 112 mmol/L (98-108); Creatinine, Blood 0.54 mg/dL (0.40-1.00); Glomerular Filtration Rate >60 (60-); Glucose, Blood 165 mg/dL (70-99); Potassium, Blood 3.3 mmol/L (3.5-5.5); Sodium, Blood 144 mmol/L (136-145)
--- NOTE | 2019-01-22 06:32 | NUR ---
EASEMENT MAN UMMARY patient was restless most of night. diarrhea 4 times. sample sent for cdiff came back negative. patient was able to eat a jello and one vanilla pudding and drink 2 glasses of water. each time she took anything in orally, her stomach would get upset and she would have an incontinence of diarrhea and urine. Patient stated she was afraid to eat anything. no complaint of pain, just abd discomfort.
--- NOTE | 2019-01-22 07:43 | NUR ---
Dr. Mora in to visit patient at bedside but patient was sleeping. Received orders for 2mg Immodium Q6P for diarrhea. Per Dr. Mora, patient is stable to go home from his standpoint.
[2019-01-22] MEDS ORDERED: POTCHL20ER PO (09:56)
--- NOTE | 2019-01-22 13:34 | NUR ---
Discharge Summary A/Ox4. A sarcastic lady who has been pleasant and cooperative with care. Pt discharged to [facility], report called and given to Samantha. Powerglide removed, WNL. manager trade marketing (Shreya) provided transfer packet and given to milk pickup driver who picked patient from hospital. Pt transported via [employer].
== END 2019-01-22 13:17 | DRG 393 ==
LOC: ER 11:03 → MEDS 15:50 → PCU 15:50 → ICUE 15:50 → MEDS 17:51 → PCU 01-17 17:06 → MEDS 01-20 16:04 → ENPENDDIS 01-22 09:53 → MEDS 01-22 13:17
PROVIDERS: Emergency Medicine; Internal Medicine; Internal Medicine Gastroenterology; ADMIT Internal Medicine
PROC: 0DBL8ZZ Excision of Transverse Colon, Via Natural or Artificial Opening Endoscopic (ICD-10-PCS; 2019-01-19)
PROC: 0DBK8ZZ Excision of Ascending Colon, Via Natural or Artificial Opening Endoscopic (ICD-10-PCS; principal; 2019-01-19 16:00)
PROC: 0DD68ZX Extraction of Stomach, Via Natural or Artificial Opening Endoscopic, Diagnostic (ICD-10-PCS; 2019-01-21)
DX: K55.9 Vascular disorder of intestine, unspecified (principal); K72.00 Acute and subacute hepatic failure without coma; I50.32 Chronic diastolic (congestive) heart failure; I44.2 Atrioventricular block, complete; N39.0 Urinary tract infection, site not specified; I13.0 Hypertensive heart and chronic kidney disease with heart failure and stage 1 through stage 4 chronic kidney disease, or unspecified chronic kidney disease; K62.6 Ulcer of anus and rectum; K76.6 Portal hypertension; Z79.82 Long term (current) use of aspirin; E11.9 Type 2 diabetes mellitus without complications; Z79.4 Long term (current) use of insulin; K59.00 Constipation, unspecified; Z96.641 Presence of right artificial hip joint; R33.8 Other retention of urine; D50.0 Iron deficiency anemia secondary to blood loss (chronic); K74.60 Unspecified cirrhosis of liver; E66.9 Obesity, unspecified; Z68.31 Body mass index [BMI] 31.0-31.9, adult; E87.6 Hypokalemia; E83.39 Other disorders of phosphorus metabolism; K64.5 Perianal venous thrombosis; K64.8 Other hemorrhoids; L89.151 Pressure ulcer of sacral region, stage 1; Z95.0 Presence of cardiac pacemaker; K44.9 Diaphragmatic hernia without obstruction or gangrene; K75.81 Nonalcoholic steatohepatitis (NASH); K57.30 Diverticulosis of large intestine without perforation or abscess without bleeding
CPT/HCPCS: 36415; 36430; 51702; 74176; 80047; 80048; 80053; 80069; 81001; 82140; 82728; 82947; 83036; 83540; 83550; 83605; 83690; 83735; 83880; 84443; 85014; 85018; 85025; 85027; 85610; 85730; 86850; 86900; 86901; 86923; 87086; 87493; 88305; 88312; 93005; 93010; 93971; 96361-59; 96365-59; 96375-59; 97110; 97162; 97166; 97530; 97535; 99285-25; A9270-GY; C1751; C9113; J0696; J1650; J2250; J2405; J2704; J3480; J7030; J7050; J7060; J7120; P9016; P9059

== ENCOUNTER → 2019-04-16 | Outpatient (CLI) | payer MEDICARE, OTHER ==
[~2019-04-16] MED LIST changes: +AMOCLA500 PO; +Anti-Diarrheal2 MG PO; +BASAGLAR K100 UNIT/1 SC; +BISA10S PR; +DOCU100 PO; +ENOX80I SC; +Fleet Enema132 ML PR; +Humalog100 UNIT/3 SC; +MIRALAX17 GM PO; +Milk Of Ma400 MG/5 M PO; +POTCHL20ER PO; +THERA-D2000 UNIT PO
[2019-04-16 19:50] LABS: BASOPHILS ABSOLUTE AUTO 0.13 K/mm3 (0.00-0.23); BASOPHILS PERCENT AUTO 1 % (0-2); EOSINOPHILS ABSOLUTE AUTO 0.27 K/mm3 (0.00-0.68); EOSINOPHILS PERCENT AUTO 2 % (0-6); Hematocrit 40.8 % (33.0-51.0); Hemoglobin 12.3 g/dL (11.5-16.0); IMMATURE GRAN ABSOLUTE AUTO 0.08 K/mm3 (0.00-0.10); IMMATURE GRAN PERCENT AUTO 1 % (0-1); LYMPHOCYTES ABSOLUTE AUTO 1.85 K/mm3 (0.84-5.20); LYMPHOCYTES PERCENT AUTO 14 % (21-46); MONOCYTES ABSOLUTE AUTO 0.74 K/mm3 (0.16-1.47); MONOCYTES PERCENT AUTO 6 % (4-13); Mean Corpuscular HGB 21.5 pg (26.0-34.0); Mean Corpuscular HGB Conc 30.1 g/dL (31.5-36.5); Mean Corpuscular Volume 72 fL (80-100); Mean Platelet Volume 10.2 fL (9.1-12.4); NEUTROPHILS ABSOLUTE AUTO 10.05 K/mm3 (1.96-9.15); NEUTROPHILS PERCENT AUTO 77 % (41-73); Platelet Count 329 K/mm3 (150-400); RDW Coefficient Variation 16.6 % (11.7-14.2); RDW Standard Deviation 42.1 fL (35.1-46.3); Red Blood Cell Count 5.71 M/mm3 (3.80-5.20); White Blood Cell Count 13.12 K/mm3 (4.00-11.30)
[2019-04-16 20:24] LABS: Alanine Aminotransfer (ALT/SGP 21 U/L (12-78); Albumin, Blood 3.1 g/dL (3.4-5.0); Albumin/Globulin Ratio 0.7 (0.8-1.8); Alk Phos 111 U/L (50-136); Anion Gap 7 mmol/L (6-16); Aspartate Aminotrans (AST/SGOT 11 U/L (12-37); Bilirubin, Direct 0.1 mg/dL (0.0-0.3); Bilirubin, Indirect 0.3 mg/dL (0.1-0.7); Bilirubin, Total 0.4 mg/dL (0.1-1.0); Blood Urea Nitrogen 10 mg/dL (8-24); Bun/Creatinine Ratio 13.3 (12.0-20.0); CHOL/HDL RATIO 4.4; CO2, Blood 25 mmol/L (21-32); Calcium, Blood 9.5 mg/dL (8.5-10.1); Chloride, Blood 103 mmol/L (98-108); Cholesterol 201 mg/dL (50-200); Creatinine, Blood 0.75 mg/dL (0.40-1.00); Globulin, Blood 4.7 g/dL (2.2-4.0); Glomerular Filtration Rate >60 (60-); Glucose, Blood 401 mg/dL (70-99); HDL Cholesterol 46 mg/dL (>39); LDL/HDL RATIO 2.6; Low Density Lipoprotein Chol 119 mg/dL (0-110); Potassium, Blood 3.9 mmol/L (3.5-5.5); Sodium, Blood 135 mmol/L (136-145); Total Protein, Blood 7.8 g/dL (6.4-8.2); Triglycerides 180 mg/dL (30-160); Very Low Density Lipoprot Chol 36 mg/dL (6-32)
== END | disposition home or self-care (01) ==
LOC: LAB SHORT 15:02 → LAB 15:02
PROVIDERS: Nurse Practitioner Family
DX: Z13.31 Encounter for screening for depression (principal); K72.10 Chronic hepatic failure without coma; R23.3 Spontaneous ecchymoses; M25.532 Pain in left wrist; K74.69 Other cirrhosis of liver; K75.81 Nonalcoholic steatohepatitis (NASH); K52.9 Noninfective gastroenteritis and colitis, unspecified; S82.851D Displaced trimalleolar fracture of right lower leg, subsequent encounter for closed fracture with routine healing; I82.409 Acute embolism and thrombosis of unspecified deep veins of unspecified lower extremity; S89.92XD Unspecified injury of left lower leg, subsequent encounter; R42 Dizziness and giddiness; I95.1 Orthostatic hypotension; R09.82 Postnasal drip; M21.6X9 Other acquired deformities of unspecified foot; L84 Corns and callosities; E11.59 Type 2 diabetes mellitus with other circulatory complications; I10 Essential (primary) hypertension; Z91.14 Patient's other noncompliance with medication regimen; Z95.0 Presence of cardiac pacemaker
CPT/HCPCS: 80053; 80061; 82248; 83036; 84443; 85025

== ENCOUNTER → 2019-04-27 | Outpatient (CLI) | payer MEDICARE, OTHER ==
[2019-04-27 18:45] LABS: BASOPHILS ABSOLUTE AUTO 0.14 K/mm3 (0.00-0.23); BASOPHILS PERCENT AUTO 1 % (0-2); EOSINOPHILS ABSOLUTE AUTO 0.27 K/mm3 (0.00-0.68); EOSINOPHILS PERCENT AUTO 2 % (0-6); Hematocrit 44.3 % (33.0-51.0); IMMATURE GRAN ABSOLUTE AUTO 0.07 K/mm3 (0.00-0.10); IMMATURE GRAN PERCENT AUTO 1 % (0-1); LYMPHOCYTES ABSOLUTE AUTO 1.64 K/mm3 (0.84-5.20); LYMPHOCYTES PERCENT AUTO 12 % (21-46); MONOCYTES ABSOLUTE AUTO 0.73 K/mm3 (0.16-1.47); MONOCYTES PERCENT AUTO 5 % (4-13); Mean Corpuscular HGB Conc 29.3 g/dL (31.5-36.5); Mean Corpuscular Volume 72 fL (80-100); Mean Platelet Volume 10.5 fL (9.1-12.4); NEUTROPHILS ABSOLUTE AUTO 11.34 K/mm3 (1.96-9.15); NEUTROPHILS PERCENT AUTO 80 % (41-73); Platelet Count 281 K/mm3 (150-400); RDW Coefficient Variation 17.2 % (11.7-14.2); RDW Standard Deviation 42.5 fL (35.1-46.3); White Blood Cell Count 14.19 K/mm3 (4.00-11.30)
== END | disposition home or self-care (01) ==
LOC: LAB SHORT 17:35 → LAB 17:35
PROVIDERS: Nurse Practitioner Family
DX: L03.116 Cellulitis of left lower limb (principal)
CPT/HCPCS: 85025; 87070; 87075; 87077; 87186; 87205

== ENCOUNTER → 2019-06-16 | Outpatient (CLI) | payer MEDICARE, OTHER | END | disposition home or self-care (01) | LOC: LAB SHORT 12:56 → LAB 12:56 | DX: I87.2 Venous insufficiency (chronic) (peripheral) (principal); L97.322 Non-pressure chronic ulcer of left ankle with fat layer exposed | CPT/HCPCS: 87070; 87075; 87205 ==

== ENCOUNTER → 2019-06-30 | Outpatient (CLI) | payer MEDICARE, OTHER ==
[2019-06-30 14:26] LABS: BASOPHILS ABSOLUTE AUTO 0.12 K/mm3 (0.00-0.23); BASOPHILS PERCENT AUTO 1 % (0-2); EOSINOPHILS ABSOLUTE AUTO 0.22 K/mm3 (0.00-0.68); EOSINOPHILS PERCENT AUTO 2 % (0-6); Hematocrit 43.7 % (33.0-51.0); Hemoglobin 13.2 g/dL (11.5-16.0); IMMATURE GRAN ABSOLUTE AUTO 0.06 K/mm3 (0.00-0.10); IMMATURE GRAN PERCENT AUTO 1 % (0-1); LYMPHOCYTES ABSOLUTE AUTO 1.38 K/mm3 (0.84-5.20); LYMPHOCYTES PERCENT AUTO 13 % (21-46); MONOCYTES ABSOLUTE AUTO 0.69 K/mm3 (0.16-1.47); MONOCYTES PERCENT AUTO 6 % (4-13); Mean Corpuscular HGB 21.5 pg (26.0-34.0); Mean Corpuscular HGB Conc 30.2 g/dL (31.5-36.5); Mean Corpuscular Volume 71 fL (80-100); Mean Platelet Volume 10.9 fL (9.1-12.4); NEUTROPHILS PERCENT AUTO 77 % (41-73); Platelet Count 249 K/mm3 (150-400); RDW Coefficient Variation 19.8 % (11.7-14.2); RDW Standard Deviation 47.2 fL (35.1-46.3); Red Blood Cell Count 6.14 M/mm3 (3.80-5.20); White Blood Cell Count 10.87 K/mm3 (4.00-11.30)
[2019-06-30 14:28] LABS: Alanine Aminotransfer (ALT/SGP 16 U/L (12-78); Albumin, Blood 3.2 g/dL (3.4-5.0); Albumin/Globulin Ratio 0.7 (0.8-1.8); Alk Phos 117 U/L (50-136); Anion Gap 7 mmol/L (6-16); Aspartate Aminotrans (AST/SGOT 17 U/L (12-37); Bilirubin, Direct 0.2 mg/dL (0.0-0.3); Bilirubin, Indirect 0.3 mg/dL (0.1-0.7); Bilirubin, Total 0.5 mg/dL (0.1-1.0); Blood Urea Nitrogen 13 mg/dL (8-24); Bun/Creatinine Ratio 18.5 (12.0-20.0); CO2, Blood 25 mmol/L (21-32); Calcium, Blood 9.1 mg/dL (8.5-10.1); Chloride, Blood 100 mmol/L (98-108); Globulin, Blood 4.3 g/dL (2.2-4.0); Glomerular Filtration Rate >60 (60-); Glucose, Blood 468 mg/dL (70-99); Potassium, Blood 3.9 mmol/L (3.5-5.5); Sodium, Blood 132 mmol/L (136-145); Total Protein, Blood 7.5 g/dL (6.4-8.2)
== END | disposition home or self-care (01) ==
LOC: LAB SHORT 12:53 → LAB 12:53
PROVIDERS: Nurse Practitioner Family
DX: E11.59 Type 2 diabetes mellitus with other circulatory complications (principal); L03.116 Cellulitis of left lower limb; M19.90 Unspecified osteoarthritis, unspecified site; I10 Essential (primary) hypertension; E83.52 Hypercalcemia
CPT/HCPCS: 80053; 82248; 83036; 85025; 85651

== ENCOUNTER → 2019-06-30 | Outpatient (CLI) | payer MEDICARE, OTHER | END | disposition home or self-care (01) | LOC: LAB 12:20 → LAB SHORT 12:20 | DX: S81.802A Unspecified open wound, left lower leg, initial encounter (principal); L08.9 Local infection of the skin and subcutaneous tissue, unspecified | CPT/HCPCS: 87070; 87075; 87205 ==

== ENCOUNTER 2019-07-15 00:10 | Day surgery (SDC) | payer MEDICARE, OTHER | END 2019-07-15 22:45 | disposition home or self-care (01) | LOC: WOUND 00:10 | DX: E11.622 Type 2 diabetes mellitus with other skin ulcer (principal); L97.222 Non-pressure chronic ulcer of left calf with fat layer exposed; M79.3 Panniculitis, unspecified; L03.116 Cellulitis of left lower limb; I12.9 Hypertensive chronic kidney disease with stage 1 through stage 4 chronic kidney disease, or unspecified chronic kidney disease; N18.9 Chronic kidney disease, unspecified; E78.5 Hyperlipidemia, unspecified; M19.90 Unspecified osteoarthritis, unspecified site; Z85.828 Personal history of other malignant neoplasm of skin; Z86.718 Personal history of other venous thrombosis and embolism; Z95.0 Presence of cardiac pacemaker; Z88.0 Allergy status to penicillin | CPT/HCPCS: 11107; 88305; 88312; G0463 ==

== ENCOUNTER 2019-07-22 00:12 | Day surgery (SDC) | payer MEDICARE, OTHER | END 2019-07-22 22:47 | disposition home or self-care (01) | LOC: WOUND 00:12 | DX: E11.622 Type 2 diabetes mellitus with other skin ulcer (principal); L97.222 Non-pressure chronic ulcer of left calf with fat layer exposed; I12.9 Hypertensive chronic kidney disease with stage 1 through stage 4 chronic kidney disease, or unspecified chronic kidney disease; E11.22 Type 2 diabetes mellitus with diabetic chronic kidney disease; N18.9 Chronic kidney disease, unspecified; E78.5 Hyperlipidemia, unspecified; M19.90 Unspecified osteoarthritis, unspecified site; Z85.828 Personal history of other malignant neoplasm of skin ==

== ENCOUNTER 2019-07-29 00:18 | Day surgery (SDC) | payer MEDICARE, OTHER | END 2019-07-29 22:46 | disposition home or self-care (01) | LOC: WOUND 00:18 | DX: E11.622 Type 2 diabetes mellitus with other skin ulcer (principal); L97.222 Non-pressure chronic ulcer of left calf with fat layer exposed; E11.22 Type 2 diabetes mellitus with diabetic chronic kidney disease; I12.9 Hypertensive chronic kidney disease with stage 1 through stage 4 chronic kidney disease, or unspecified chronic kidney disease; N18.9 Chronic kidney disease, unspecified; E78.5 Hyperlipidemia, unspecified; E66.9 Obesity, unspecified; Z85.828 Personal history of other malignant neoplasm of skin; Z68.28 Body mass index [BMI] 28.0-28.9, adult; Z79.899 Other long term (current) drug therapy; Z79.82 Long term (current) use of aspirin; Z79.4 Long term (current) use of insulin | CPT/HCPCS: G0463 ==

== ENCOUNTER 2019-08-05 00:17 | Day surgery (SDC) | payer MEDICARE, OTHER | END 2019-08-05 22:55 | disposition home or self-care (01) | LOC: WOUND 00:17 | DX: E11.622 Type 2 diabetes mellitus with other skin ulcer (principal); L97.222 Non-pressure chronic ulcer of left calf with fat layer exposed; E11.22 Type 2 diabetes mellitus with diabetic chronic kidney disease; I12.9 Hypertensive chronic kidney disease with stage 1 through stage 4 chronic kidney disease, or unspecified chronic kidney disease; N18.9 Chronic kidney disease, unspecified; E78.5 Hyperlipidemia, unspecified; E66.9 Obesity, unspecified; Z85.828 Personal history of other malignant neoplasm of skin; Z68.28 Body mass index [BMI] 28.0-28.9, adult; Z79.899 Other long term (current) drug therapy; Z79.82 Long term (current) use of aspirin; Z79.84 Long term (current) use of oral hypoglycemic drugs | CPT/HCPCS: G0463 ==

== ENCOUNTER 2019-08-12 00:19 | Day surgery (SDC) | payer MEDICARE, OTHER | END 2019-08-12 23:00 | disposition home or self-care (01) | LOC: WOUND 00:19 | DX: E11.622 Type 2 diabetes mellitus with other skin ulcer (principal); L97.222 Non-pressure chronic ulcer of left calf with fat layer exposed; I12.9 Hypertensive chronic kidney disease with stage 1 through stage 4 chronic kidney disease, or unspecified chronic kidney disease; N18.9 Chronic kidney disease, unspecified; E11.22 Type 2 diabetes mellitus with diabetic chronic kidney disease; E78.5 Hyperlipidemia, unspecified; E66.9 Obesity, unspecified; Z86.718 Personal history of other venous thrombosis and embolism; Z85.828 Personal history of other malignant neoplasm of skin | CPT/HCPCS: G0463 ==

== ENCOUNTER 2019-08-19 00:35 | Day surgery (SDC) | payer MEDICARE, OTHER | END 2019-08-19 23:16 | disposition home or self-care (01) | LOC: WOUND 00:35 | DX: E11.622 Type 2 diabetes mellitus with other skin ulcer (principal); L97.222 Non-pressure chronic ulcer of left calf with fat layer exposed; E78.5 Hyperlipidemia, unspecified; M19.90 Unspecified osteoarthritis, unspecified site; E66.9 Obesity, unspecified; I13.2 Hypertensive heart and chronic kidney disease with heart failure and with stage 5 chronic kidney disease, or end stage renal disease; I50.9 Heart failure, unspecified; N18.6 End stage renal disease; E11.22 Type 2 diabetes mellitus with diabetic chronic kidney disease | CPT/HCPCS: G0463 ==

== ENCOUNTER 2019-08-26 00:12 | Day surgery (SDC) | payer MEDICARE, OTHER | END 2019-08-26 23:03 | disposition home or self-care (01) | LOC: WOUND 00:12 | DX: E11.622 Type 2 diabetes mellitus with other skin ulcer (principal); L97.222 Non-pressure chronic ulcer of left calf with fat layer exposed; I12.9 Hypertensive chronic kidney disease with stage 1 through stage 4 chronic kidney disease, or unspecified chronic kidney disease; E11.51 Type 2 diabetes mellitus with diabetic peripheral angiopathy without gangrene; E11.22 Type 2 diabetes mellitus with diabetic chronic kidney disease; N18.9 Chronic kidney disease, unspecified; E78.5 Hyperlipidemia, unspecified; E66.9 Obesity, unspecified; Z68.28 Body mass index [BMI] 28.0-28.9, adult; Z79.899 Other long term (current) drug therapy; Z79.82 Long term (current) use of aspirin; Z79.4 Long term (current) use of insulin | CPT/HCPCS: G0463 ==

== ENCOUNTER 2019-10-08 09:57 | Day surgery (SDC) | payer MEDICARE, OTHER ==
[~2019-10-08] VITALS: Ht 162.6 cm; Wt 160.0 kg
[~2019-10-08 09:57] MED LIST changes: +VITAMIN D31000 UNI1 PO
[2019-10-08] MEDS ORDERED: MELO7.5 PO (12:38)
--- NOTE | 2019-10-08 17:46 | NUR ---
ADMIT NOTE- PT EXTENDED RECOVERY FROM [facility] IN BED. AWAKE, ALERT, COOPERATIVE. DENIES ANY PAIN OR SOB. LUNGS CLEAR. VSS. RIGHT FEMORAL SITE DI. PEDAL PULSES PALPABLE, FEET WARM, COLOR PALE, SENSATION INTACT BILATERAL FEET. DRSG LEFT CRUZ DI. PERIARE REDDENED FROM PUBIS TO BACK, SKIN PEELING, RAW. STATES HAS BEEN A CONTINUING PROBLEMS FOR HER. NO N/V. REVIEWED PRECAUTIONS. STATES UNDERSTANDING. INCONTINENCE PAD ON PER REQUEST. CALL LIGHT WITHIN REACH
--- NOTE | 2019-10-08 18:37 | NUR ---
VSS. PT TALKATIVE, WANTS TO GO HOME. EXPLAINED PLAN OF CARE. NO S/S BLEEDING. SITE INTACT. PEDAL PULSES INTACT, FEET WARM
--- NOTE | 2019-10-08 21:07 | NUR ---
PT A&O; VSS; HR STABLE; DENIES CHEST PAIN & SOB; O2 SATS >93 ON RA; DISCHARGE INSTRUCTIONS EXPLICITLY REVIEWED; PT VERBALIZED UNDERSTANDING; PT WAS NOTIFIED TO MAKE FOLLOW UP W/ ; SHE STATED SHE WOULD; FEMORAL SITE DRESSING INTACT W/ SCANT AMOUNT OF BLOOD NOTED; PT EDUCATED ON OBSERVING SITE AND TO CALL PROVIDER W/ ANY CONCERNS OR BLEEDING; PT EDUCATED ON NOT SHOWERING OR USING STAIRS; ALL BELONGINGS W/ PT AND OH TAKEN BY WHEELCHAIR TO EXIT HOSPITAL; PT PICKED UP BY FRIEND MEGHANN; PT STATED SHE HAD HER PURSE, DISCHARGE INSTRUCTIONS AND ALL BELONGINGS.
== END 2019-10-08 20:30 | disposition home or self-care (01) ==
LOC: MHTC 09:57 → PCU 17:22 → MHTC 20:30
DX: E11.51 Type 2 diabetes mellitus with diabetic peripheral angiopathy without gangrene (principal); I70.212 Atherosclerosis of native arteries of extremities with intermittent claudication, left leg; I13.0 Hypertensive heart and chronic kidney disease with heart failure and stage 1 through stage 4 chronic kidney disease, or unspecified chronic kidney disease; E11.22 Type 2 diabetes mellitus with diabetic chronic kidney disease; N18.3 Chronic kidney disease, stage 3 (moderate); E78.5 Hyperlipidemia, unspecified; I50.30 Unspecified diastolic (congestive) heart failure; I87.2 Venous insufficiency (chronic) (peripheral); Z88.8 Allergy status to other drugs, medicaments and biological substances; Z88.0 Allergy status to penicillin; Z79.82 Long term (current) use of aspirin; Z79.899 Other long term (current) drug therapy; E66.9 Obesity, unspecified
CPT/HCPCS: 37228; 37232; 75716; 75774; 85347; 99152; 99153; C1725; C1769; C1887; C1894; J1644; J2250; J3010; J7030; Q9967

== ENCOUNTER 2019-10-21 00:16 | Day surgery (SDC) | payer MEDICARE, OTHER ==
[~2019-10-21 00:16] MED LIST changes: +MELO7.5 PO
== END 2019-10-21 22:41 | disposition home or self-care (01) ==
LOC: WOUND 00:16
DX: E11.622 Type 2 diabetes mellitus with other skin ulcer (principal); L97.222 Non-pressure chronic ulcer of left calf with fat layer exposed; I87.2 Venous insufficiency (chronic) (peripheral); S80.922D Unspecified superficial injury of left lower leg, subsequent encounter; Z01.84 Encounter for antibody response examination; Z79.4 Long term (current) use of insulin
CPT/HCPCS: G0463

== ENCOUNTER 2019-11-11 00:43 | Day surgery (SDC) | payer MEDICARE, OTHER | END 2019-11-11 22:49 | disposition home or self-care (01) | LOC: WOUND 00:43 | DX: E11.622 Type 2 diabetes mellitus with other skin ulcer (principal); L97.822 Non-pressure chronic ulcer of other part of left lower leg with fat layer exposed; S80.922D Unspecified superficial injury of left lower leg, subsequent encounter; I87.2 Venous insufficiency (chronic) (peripheral); E11.52 Type 2 diabetes mellitus with diabetic peripheral angiopathy with gangrene; I96 Gangrene, not elsewhere classified; I13.2 Hypertensive heart and chronic kidney disease with heart failure and with stage 5 chronic kidney disease, or end stage renal disease; E11.22 Type 2 diabetes mellitus with diabetic chronic kidney disease; N18.6 End stage renal disease; I50.9 Heart failure, unspecified; D63.1 Anemia in chronic kidney disease; K74.60 Unspecified cirrhosis of liver; K75.81 Nonalcoholic steatohepatitis (NASH); E11.69 Type 2 diabetes mellitus with other specified complication; E78.5 Hyperlipidemia, unspecified; M19.90 Unspecified osteoarthritis, unspecified site; E66.9 Obesity, unspecified; Z68.28 Body mass index [BMI] 28.0-28.9, adult; Z88.8 Allergy status to other drugs, medicaments and biological substances; Z91.040 Latex allergy status; Z88.0 Allergy status to penicillin; Z79.82 Long term (current) use of aspirin; Z79.1 Long term (current) use of non-steroidal anti-inflammatories (NSAID); Z79.899 Other long term (current) drug therapy; Z85.828 Personal history of other malignant neoplasm of skin; Z86.718 Personal history of other venous thrombosis and embolism; Z95.0 Presence of cardiac pacemaker; X58.XXXD Exposure to other specified factors, subsequent encounter | CPT/HCPCS: G0463 ==

== ENCOUNTER 2019-12-02 00:38 | Day surgery (SDC) | payer MEDICARE, OTHER | END 2019-12-02 22:53 | disposition home or self-care (01) | LOC: WOUND 00:38 | DX: E11.622 Type 2 diabetes mellitus with other skin ulcer (principal); S80.922D Unspecified superficial injury of left lower leg, subsequent encounter; L97.822 Non-pressure chronic ulcer of other part of left lower leg with fat layer exposed; I87.2 Venous insufficiency (chronic) (peripheral); Z79.899 Other long term (current) drug therapy; Z79.82 Long term (current) use of aspirin | CPT/HCPCS: G0463 ==

== ENCOUNTER 2019-12-04 00:35 | Day surgery (SDC) | payer MEDICARE, OTHER | END 2019-12-04 12:00 | disposition home or self-care (01) | LOC: WOUND 00:35 | DX: E11.622 Type 2 diabetes mellitus with other skin ulcer (principal); S80.922D Unspecified superficial injury of left lower leg, subsequent encounter; L97.822 Non-pressure chronic ulcer of other part of left lower leg with fat layer exposed; I87.2 Venous insufficiency (chronic) (peripheral); E11.22 Type 2 diabetes mellitus with diabetic chronic kidney disease; I12.9 Hypertensive chronic kidney disease with stage 1 through stage 4 chronic kidney disease, or unspecified chronic kidney disease; N18.9 Chronic kidney disease, unspecified; E66.9 Obesity, unspecified; Z68.28 Body mass index [BMI] 28.0-28.9, adult; Z79.899 Other long term (current) drug therapy; Z79.82 Long term (current) use of aspirin ==

== ENCOUNTER 2019-12-09 00:41 | Day surgery (SDC) | payer MEDICARE, OTHER | END 2019-12-09 22:38 | disposition home or self-care (01) | LOC: WOUND 00:41 | DX: E11.622 Type 2 diabetes mellitus with other skin ulcer (principal); L97.822 Non-pressure chronic ulcer of other part of left lower leg with fat layer exposed; S80.922D Unspecified superficial injury of left lower leg, subsequent encounter; I87.2 Venous insufficiency (chronic) (peripheral); E11.52 Type 2 diabetes mellitus with diabetic peripheral angiopathy with gangrene; I96 Gangrene, not elsewhere classified; I13.2 Hypertensive heart and chronic kidney disease with heart failure and with stage 5 chronic kidney disease, or end stage renal disease; E11.22 Type 2 diabetes mellitus with diabetic chronic kidney disease; N18.6 End stage renal disease; I50.9 Heart failure, unspecified; D63.1 Anemia in chronic kidney disease; K74.60 Unspecified cirrhosis of liver; M19.90 Unspecified osteoarthritis, unspecified site; Z86.718 Personal history of other venous thrombosis and embolism; Z88.0 Allergy status to penicillin; Z88.8 Allergy status to other drugs, medicaments and biological substances; Z91.040 Latex allergy status; Z79.82 Long term (current) use of aspirin; Z79.1 Long term (current) use of non-steroidal anti-inflammatories (NSAID); Z79.899 Other long term (current) drug therapy; X58.XXXD Exposure to other specified factors, subsequent encounter | CPT/HCPCS: G0463 ==

== ENCOUNTER 2019-12-16 00:46 | Day surgery (SDC) | payer MEDICARE, OTHER | END 2019-12-16 22:41 | disposition home or self-care (01) | LOC: WOUND 00:46 | DX: E11.622 Type 2 diabetes mellitus with other skin ulcer (principal); L97.823 Non-pressure chronic ulcer of other part of left lower leg with necrosis of muscle; E11.52 Type 2 diabetes mellitus with diabetic peripheral angiopathy with gangrene; I96 Gangrene, not elsewhere classified; I13.2 Hypertensive heart and chronic kidney disease with heart failure and with stage 5 chronic kidney disease, or end stage renal disease; E11.22 Type 2 diabetes mellitus with diabetic chronic kidney disease; N18.6 End stage renal disease; I50.30 Unspecified diastolic (congestive) heart failure; D63.1 Anemia in chronic kidney disease; K74.60 Unspecified cirrhosis of liver; M19.90 Unspecified osteoarthritis, unspecified site; E78.5 Hyperlipidemia, unspecified; Z95.0 Presence of cardiac pacemaker; Z86.718 Personal history of other venous thrombosis and embolism; Z96.641 Presence of right artificial hip joint; Z90.49 Acquired absence of other specified parts of digestive tract; Z88.0 Allergy status to penicillin; Z88.8 Allergy status to other drugs, medicaments and biological substances; Z91.040 Latex allergy status; Z79.82 Long term (current) use of aspirin; Z79.899 Other long term (current) drug therapy | CPT/HCPCS: G0463 ==

== ENCOUNTER → 2019-12-17 | Outpatient (CLI) | payer MEDICARE, OTHER ==
[2019-12-17 20:48] LABS: BASOPHILS ABSOLUTE AUTO 0.16 K/mm3 (0.00-0.23); BASOPHILS PERCENT AUTO 1 % (0-2); EOSINOPHILS ABSOLUTE AUTO 0.15 K/mm3 (0.00-0.68); EOSINOPHILS PERCENT AUTO 1 % (0-6); Hematocrit 49.3 % (33.0-51.0); Hemoglobin 15.1 g/dL (11.5-16.0); IMMATURE GRAN ABSOLUTE AUTO 0.12 K/mm3 (0.00-0.10); IMMATURE GRAN PERCENT AUTO 1 % (0-1); LYMPHOCYTES ABSOLUTE AUTO 2.25 K/mm3 (0.84-5.20); LYMPHOCYTES PERCENT AUTO 14 % (21-46); MONOCYTES ABSOLUTE AUTO 1.12 K/mm3 (0.16-1.47); MONOCYTES PERCENT AUTO 7 % (4-13); Mean Corpuscular HGB 22.3 pg (26.0-34.0); Mean Corpuscular HGB Conc 30.6 g/dL (31.5-36.5); Mean Corpuscular Volume 73 fL (80-100); Mean Platelet Volume 10.9 fL (9.1-12.4); NEUTROPHILS ABSOLUTE AUTO 12.15 K/mm3 (1.96-9.15); NEUTROPHILS PERCENT AUTO 76 % (41-73); Platelet Count 279 K/mm3 (150-400); RDW Coefficient Variation 19.2 % (11.7-14.2); RDW Standard Deviation 44.1 fL (35.1-46.3); Red Blood Cell Count 6.77 M/mm3 (3.80-5.20); White Blood Cell Count 15.95 K/mm3 (4.00-11.30)
[2019-12-17 21:20] LABS: Alanine Aminotransfer (ALT/SGP 42 U/L (12-78); Albumin, Blood 2.6 g/dL (3.4-5.0); Albumin/Globulin Ratio 0.6 (0.8-1.8); Alk Phos 215 U/L (50-136); Anion Gap 14 mmol/L (6-16); Aspartate Aminotrans (AST/SGOT 52 U/L (12-37); Bilirubin, Total 0.7 mg/dL (0.1-1.0); Blood Urea Nitrogen 26 mg/dL (8-24); Bun/Creatinine Ratio 37.1 (12.0-20.0); CHOL/HDL RATIO 2.6; CO2, Blood 21 mmol/L (21-32); Chloride, Blood 95 mmol/L (98-108); Cholesterol 159 mg/dL (50-200); Globulin, Blood 4.3 g/dL (2.2-4.0); Glomerular Filtration Rate >60 (60-); Glucose, Blood 549 mg/dL (70-99); HDL Cholesterol 61 mg/dL (>39); LDL/HDL RATIO 1.2; Low Density Lipoprotein Chol 76 mg/dL (0-110); Potassium, Blood 4.3 mmol/L (3.5-5.5); Sodium, Blood 130 mmol/L (136-145); Total Protein, Blood 6.9 g/dL (6.4-8.2); Triglycerides 111 mg/dL (30-160); Very Low Density Lipoprot Chol 22 mg/dL (6-32)
== END | disposition home or self-care (01) ==
LOC: LAB 19:21 → LAB SHORT 19:21
PROVIDERS: Nurse Practitioner Family
DX: E11.40 Type 2 diabetes mellitus with diabetic neuropathy, unspecified (principal); E78.5 Hyperlipidemia, unspecified; I10 Essential (primary) hypertension
CPT/HCPCS: 80053; 80061; 83036; 84443; 85025

== ENCOUNTER → 2019-12-24 | Outpatient (CLI) | payer MEDICARE, OTHER ==
[2019-12-24 12:37] LABS: Source, Urine Voided
[2019-12-24 14:35] LABS: Bilirubin, Urine Neg (Neg); Blood, Urine 3+ (Neg); Glucose Qualitative, Urine 4+ (Neg); Ketones, Urine Neg (Neg); Leukocyte Esterase, Urine 3+ (Neg); Nitrite, Urine Neg (Neg); Protein, Urine 2+ (Neg); Specific Gravity, Urine 1.015 (1.003-1.022); Urobilinogen, Urine NORM (Normal)
[2019-12-24 14:43] LABS: Appearance, Urine Cloudy (Clear); Color, Urine Yellow (P-Yellow)
[2019-12-24 14:44] LABS: Bacteria Many /hpf; Red Blood Cells, Urine TNTC /hpf (0-2); Squamous Epithelial Cells Few /hpf (Few); White Blood Cells, Urine TNTC /hpf (0-5); Yeast/Fungi Urine Many /hpf
== END | disposition home or self-care (01) ==
LOC: LAB UCHC 12:35 → LAB SHORT 12:35
PROVIDERS: Nurse Practitioner Family
DX: R32 Unspecified urinary incontinence (principal)
CPT/HCPCS: 81001; 87086

== ENCOUNTER 2019-12-30 00:41 | Day surgery (SDC) | payer MEDICARE, OTHER | END 2019-12-30 22:49 | disposition home or self-care (01) | LOC: WOUND 00:41 | DX: E11.622 Type 2 diabetes mellitus with other skin ulcer (principal); L97.823 Non-pressure chronic ulcer of other part of left lower leg with necrosis of muscle; E11.52 Type 2 diabetes mellitus with diabetic peripheral angiopathy with gangrene; I96 Gangrene, not elsewhere classified; I13.2 Hypertensive heart and chronic kidney disease with heart failure and with stage 5 chronic kidney disease, or end stage renal disease; E11.22 Type 2 diabetes mellitus with diabetic chronic kidney disease; N18.6 End stage renal disease; I50.9 Heart failure, unspecified; D63.1 Anemia in chronic kidney disease; K74.60 Unspecified cirrhosis of liver; E78.5 Hyperlipidemia, unspecified; M19.90 Unspecified osteoarthritis, unspecified site; I87.2 Venous insufficiency (chronic) (peripheral); E66.9 Obesity, unspecified; Z68.28 Body mass index [BMI] 28.0-28.9, adult; Z85.828 Personal history of other malignant neoplasm of skin; Z88.0 Allergy status to penicillin; Z91.040 Latex allergy status; Z79.82 Long term (current) use of aspirin; Z79.899 Other long term (current) drug therapy; Z86.718 Personal history of other venous thrombosis and embolism; Z95.0 Presence of cardiac pacemaker ==

== ENCOUNTER 2020-01-08 00:38 | Day surgery (SDC) | payer MEDICARE, OTHER | END 2020-01-08 23:04 | disposition home or self-care (01) | LOC: WOUND 00:38 | DX: E11.622 Type 2 diabetes mellitus with other skin ulcer (principal); L97.823 Non-pressure chronic ulcer of other part of left lower leg with necrosis of muscle; E11.52 Type 2 diabetes mellitus with diabetic peripheral angiopathy with gangrene; I96 Gangrene, not elsewhere classified; I13.2 Hypertensive heart and chronic kidney disease with heart failure and with stage 5 chronic kidney disease, or end stage renal disease; E11.22 Type 2 diabetes mellitus with diabetic chronic kidney disease; N18.6 End stage renal disease; I50.9 Heart failure, unspecified; D63.1 Anemia in chronic kidney disease; E78.5 Hyperlipidemia, unspecified; M19.90 Unspecified osteoarthritis, unspecified site; I87.2 Venous insufficiency (chronic) (peripheral); E66.9 Obesity, unspecified; Z68.28 Body mass index [BMI] 28.0-28.9, adult; Z88.0 Allergy status to penicillin; Z88.8 Allergy status to other drugs, medicaments and biological substances; Z91.040 Latex allergy status; Z79.82 Long term (current) use of aspirin; Z79.1 Long term (current) use of non-steroidal anti-inflammatories (NSAID); Z79.899 Other long term (current) drug therapy; Z86.718 Personal history of other venous thrombosis and embolism; Z95.0 Presence of cardiac pacemaker; Z85.828 Personal history of other malignant neoplasm of skin; Z51.5 Encounter for palliative care | CPT/HCPCS: 87071; 87075; 87205 ==

== ENCOUNTER 2020-01-13 03:19 | Day surgery (SDC) | payer MEDICARE, OTHER | END 2020-01-13 23:28 | disposition home or self-care (01) | LOC: WOUND 03:19 | DX: E11.622 Type 2 diabetes mellitus with other skin ulcer (principal); L97.823 Non-pressure chronic ulcer of other part of left lower leg with necrosis of muscle; E11.52 Type 2 diabetes mellitus with diabetic peripheral angiopathy with gangrene; I96 Gangrene, not elsewhere classified; K75.81 Nonalcoholic steatohepatitis (NASH); I13.2 Hypertensive heart and chronic kidney disease with heart failure and with stage 5 chronic kidney disease, or end stage renal disease; E11.22 Type 2 diabetes mellitus with diabetic chronic kidney disease; N18.6 End stage renal disease; I50.9 Heart failure, unspecified; D63.1 Anemia in chronic kidney disease; E78.5 Hyperlipidemia, unspecified; M19.90 Unspecified osteoarthritis, unspecified site; I87.2 Venous insufficiency (chronic) (peripheral); E66.9 Obesity, unspecified; Z68.28 Body mass index [BMI] 28.0-28.9, adult; Z85.828 Personal history of other malignant neoplasm of skin; Z86.718 Personal history of other venous thrombosis and embolism; Z95.0 Presence of cardiac pacemaker; Z88.0 Allergy status to penicillin; Z88.8 Allergy status to other drugs, medicaments and biological substances; Z91.040 Latex allergy status; Z79.82 Long term (current) use of aspirin; Z79.1 Long term (current) use of non-steroidal anti-inflammatories (NSAID); Z79.899 Other long term (current) drug therapy; Z51.5 Encounter for palliative care ==

== ENCOUNTER 2020-01-20 02:26 | Day surgery (SDC) | payer MEDICARE, OTHER | END 2020-01-20 23:20 | disposition home or self-care (01) | LOC: WOUND 02:26 | DX: E11.622 Type 2 diabetes mellitus with other skin ulcer (principal); L97.822 Non-pressure chronic ulcer of other part of left lower leg with fat layer exposed; E11.52 Type 2 diabetes mellitus with diabetic peripheral angiopathy with gangrene; I96 Gangrene, not elsewhere classified; S80.922D Unspecified superficial injury of left lower leg, subsequent encounter; I87.2 Venous insufficiency (chronic) (peripheral); E11.59 Type 2 diabetes mellitus with other circulatory complications; K75.81 Nonalcoholic steatohepatitis (NASH); E78.5 Hyperlipidemia, unspecified; M19.90 Unspecified osteoarthritis, unspecified site; I13.2 Hypertensive heart and chronic kidney disease with heart failure and with stage 5 chronic kidney disease, or end stage renal disease; E11.22 Type 2 diabetes mellitus with diabetic chronic kidney disease; N18.6 End stage renal disease; I50.9 Heart failure, unspecified; E66.9 Obesity, unspecified; Z68.28 Body mass index [BMI] 28.0-28.9, adult; Z85.828 Personal history of other malignant neoplasm of skin; Z88.0 Allergy status to penicillin; Z88.6 Allergy status to analgesic agent; Z91.040 Latex allergy status; Z88.8 Allergy status to other drugs, medicaments and biological substances; Z86.718 Personal history of other venous thrombosis and embolism; Z79.82 Long term (current) use of aspirin; Z79.899 Other long term (current) drug therapy; Z95.0 Presence of cardiac pacemaker; X58.XXXD Exposure to other specified factors, subsequent encounter | CPT/HCPCS: G0463 ==

== ENCOUNTER 2020-01-25 01:20 | Day surgery (SDC) | payer MEDICARE, OTHER ==
[2020-01-25 14:53] LABS: Influenza A, PCR Negative (NEGATIVE); Influenza B, PCR Negative (NEGATIVE); Resp Syncytial Virus, PCR Negative (NEGATIVE); SARS-Cov-2 (COVID-19) PCR, MMC Negative (NEGATIVE)
== END 2020-01-25 23:11 | disposition home or self-care (01) ==
LOC: WOUND 01:20
PROVIDERS: Surgery
DX: E11.622 Type 2 diabetes mellitus with other skin ulcer (principal); S80.922D Unspecified superficial injury of left lower leg, subsequent encounter; L97.822 Non-pressure chronic ulcer of other part of left lower leg with fat layer exposed; I87.2 Venous insufficiency (chronic) (peripheral); E11.22 Type 2 diabetes mellitus with diabetic chronic kidney disease; E78.5 Hyperlipidemia, unspecified; I12.9 Hypertensive chronic kidney disease with stage 1 through stage 4 chronic kidney disease, or unspecified chronic kidney disease; E66.9 Obesity, unspecified; N18.9 Chronic kidney disease, unspecified; Z68.28 Body mass index [BMI] 28.0-28.9, adult; Z79.899 Other long term (current) drug therapy; Z79.82 Long term (current) use of aspirin
CPT/HCPCS: 0241U; G0463

== ENCOUNTER 2020-01-27 13:26 | Day surgery (SDC) | payer MEDICARE, OTHER ==
[~2020-01-27] VITALS: Ht 165.1 cm; Wt 66.9 kg
[2020-01-27] MEDS ORDERED: TRIDERM28.4 GM TOP (14:01)
[2020-01-27] MEDS ORDERED: Avidoxy100 MG PO (14:01)
[2020-01-27] MEDS ORDERED: ATORVASTATIN CA20 MG PO (14:02)
--- NOTE | 2020-01-27 14:17 | NUR ---
Ambulatory in Day Surgery History, Chart, Medications and Allergies reviewed before start of procedure.Pre-Op teaching done. Pt verbalizes understanding. Lungs clear T/O to Auscultation.
--- NOTE | 2020-01-27 17:45 | NUR ---
Discharge instructions reviewed with patient. Patient verbalizes understanding. Copy given to patient to take home. Patient States Post-Procedure ride home has been arranged. Lungs clear T/O to Auscultation. Discharged via wheelchair to private car for ride home.
== END 2020-01-27 17:47 | disposition home or self-care (01) ==
LOC: ORD 13:26 → ORSCMMR 13:26 → ORD 17:47
PROVIDERS: Surgery
PROC: 0JBP0ZZ Excision of Left Lower Leg Subcutaneous Tissue and Fascia, Open Approach (ICD-10-PCS; principal; 2020-01-27 15:15)
DX: L97.829 Non-pressure chronic ulcer of other part of left lower leg with unspecified severity (principal); I12.9 Hypertensive chronic kidney disease with stage 1 through stage 4 chronic kidney disease, or unspecified chronic kidney disease; E11.22 Type 2 diabetes mellitus with diabetic chronic kidney disease; E11.65 Type 2 diabetes mellitus with hyperglycemia; N18.30 Chronic kidney disease, stage 3 unspecified; E78.5 Hyperlipidemia, unspecified; Z95.0 Presence of cardiac pacemaker; Z79.82 Long term (current) use of aspirin; Z79.4 Long term (current) use of insulin; Z79.899 Other long term (current) drug therapy
CPT/HCPCS: 82947; J1100; J2370; J2405; J2704; J3010; J7120

== ENCOUNTER 2020-01-29 00:52 | Day surgery (SDC) | payer MEDICARE, OTHER ==
[~2020-01-29 00:52] MED LIST changes: +ATORVASTATIN CA20 MG PO; +Avidoxy100 MG PO; +TRIDERM28.4 GM TOP
== END 2020-01-29 23:00 | disposition home or self-care (01) ==
LOC: WOUND 00:52
DX: E11.622 Type 2 diabetes mellitus with other skin ulcer (principal); L97.822 Non-pressure chronic ulcer of other part of left lower leg with fat layer exposed; E11.621 Type 2 diabetes mellitus with foot ulcer; L97.429 Non-pressure chronic ulcer of left heel and midfoot with unspecified severity; E11.52 Type 2 diabetes mellitus with diabetic peripheral angiopathy with gangrene; I96 Gangrene, not elsewhere classified; I87.2 Venous insufficiency (chronic) (peripheral); K75.81 Nonalcoholic steatohepatitis (NASH); E78.5 Hyperlipidemia, unspecified; M19.90 Unspecified osteoarthritis, unspecified site; I13.2 Hypertensive heart and chronic kidney disease with heart failure and with stage 5 chronic kidney disease, or end stage renal disease; E11.22 Type 2 diabetes mellitus with diabetic chronic kidney disease; N18.6 End stage renal disease; I50.9 Heart failure, unspecified; D63.1 Anemia in chronic kidney disease; E66.9 Obesity, unspecified; Z68.28 Body mass index [BMI] 28.0-28.9, adult; Z86.718 Personal history of other venous thrombosis and embolism; Z95.0 Presence of cardiac pacemaker; Z85.828 Personal history of other malignant neoplasm of skin; Z88.0 Allergy status to penicillin; Z88.8 Allergy status to other drugs, medicaments and biological substances; Z91.040 Latex allergy status; Z79.82 Long term (current) use of aspirin; Z79.899 Other long term (current) drug therapy; Z51.5 Encounter for palliative care
CPT/HCPCS: G0463

== ENCOUNTER 2020-02-11 00:17 | Day surgery (SDC) | payer MEDICARE, OTHER | END 2020-02-11 23:29 | disposition home or self-care (01) | LOC: WOUND 00:17 | DX: E11.622 Type 2 diabetes mellitus with other skin ulcer (principal); L97.822 Non-pressure chronic ulcer of other part of left lower leg with fat layer exposed; E11.621 Type 2 diabetes mellitus with foot ulcer; L97.429 Non-pressure chronic ulcer of left heel and midfoot with unspecified severity; E11.52 Type 2 diabetes mellitus with diabetic peripheral angiopathy with gangrene; I96 Gangrene, not elsewhere classified; I13.2 Hypertensive heart and chronic kidney disease with heart failure and with stage 5 chronic kidney disease, or end stage renal disease; E11.22 Type 2 diabetes mellitus with diabetic chronic kidney disease; N18.6 End stage renal disease; I50.9 Heart failure, unspecified; D63.1 Anemia in chronic kidney disease; I87.2 Venous insufficiency (chronic) (peripheral); S80.922D Unspecified superficial injury of left lower leg, subsequent encounter; E78.5 Hyperlipidemia, unspecified; M19.90 Unspecified osteoarthritis, unspecified site; E66.9 Obesity, unspecified; Z68.28 Body mass index [BMI] 28.0-28.9, adult; Z86.718 Personal history of other venous thrombosis and embolism; Z95.0 Presence of cardiac pacemaker; Z88.0 Allergy status to penicillin; Z88.8 Allergy status to other drugs, medicaments and biological substances; Z91.040 Latex allergy status; Z79.82 Long term (current) use of aspirin; Z79.899 Other long term (current) drug therapy; X58.XXXD Exposure to other specified factors, subsequent encounter ==

== ENCOUNTER 2020-02-18 00:24 | Day surgery (SDC) | payer MEDICARE, OTHER | END 2020-02-18 23:16 | disposition home or self-care (01) | LOC: WOUND 00:24 | DX: E11.622 Type 2 diabetes mellitus with other skin ulcer (principal); S80.922D Unspecified superficial injury of left lower leg, subsequent encounter; L97.822 Non-pressure chronic ulcer of other part of left lower leg with fat layer exposed; I87.2 Venous insufficiency (chronic) (peripheral); E11.22 Type 2 diabetes mellitus with diabetic chronic kidney disease; I12.9 Hypertensive chronic kidney disease with stage 1 through stage 4 chronic kidney disease, or unspecified chronic kidney disease; N18.9 Chronic kidney disease, unspecified; E78.5 Hyperlipidemia, unspecified; E66.9 Obesity, unspecified; Z68.28 Body mass index [BMI] 28.0-28.9, adult; Z79.899 Other long term (current) drug therapy; Z79.82 Long term (current) use of aspirin ==

== ENCOUNTER → 2020-02-19 | Outpatient (CLI) | payer MEDICARE, OTHER ==
[~2020-02-19] MED LIST changes: +ACET325 PO; +ATOR40TA PO; +BUME1 PO; +ELIQUIS2.5 MG PO; +GLIP5 PO; +Glipizide Xl2.5 MG PO; +HYDROCODONE-AC1 EA11 PO; +NYAMYC15 G2 TOP; +Norco 7.5-3251 EACH PO; +POTA10T PO; +TRESIBA FL100 UNIT/2 SC; +VITAMIN D310 MC5 PO
[2020-02-19 18:31] LABS: BASOPHILS ABSOLUTE AUTO 0.11 K/mm3 (0.00-0.23); BASOPHILS PERCENT AUTO 1 % (0-2); EOSINOPHILS ABSOLUTE AUTO 0.28 K/mm3 (0.00-0.68); EOSINOPHILS PERCENT AUTO 2 % (0-6); Hematocrit 41.9 % (33.0-51.0); Hemoglobin 12.7 g/dL (11.5-16.0); IMMATURE GRAN ABSOLUTE AUTO 0.06 K/mm3 (0.00-0.10); IMMATURE GRAN PERCENT AUTO 1 % (0-1); LYMPHOCYTES ABSOLUTE AUTO 1.89 K/mm3 (0.84-5.20); LYMPHOCYTES PERCENT AUTO 17 % (21-46); MONOCYTES ABSOLUTE AUTO 0.73 K/mm3 (0.16-1.47); MONOCYTES PERCENT AUTO 6 % (4-13); Mean Corpuscular HGB 22.4 pg (26.0-34.0); Mean Corpuscular HGB Conc 30.3 g/dL (31.5-36.5); Mean Corpuscular Volume 74 fL (80-100); Mean Platelet Volume 9.8 fL (9.1-12.4); NEUTROPHILS ABSOLUTE AUTO 8.36 K/mm3 (1.96-9.15); NEUTROPHILS PERCENT AUTO 73 % (41-73); Platelet Count 241 K/mm3 (150-400); RDW Coefficient Variation 17.2 % (11.7-14.2); RDW Standard Deviation 44.5 fL (35.1-46.3); Red Blood Cell Count 5.68 M/mm3 (3.80-5.20); White Blood Cell Count 11.43 K/mm3 (4.00-11.30)
[2020-02-19 19:17] LABS: Albumin, Blood 2.9 g/dL (3.4-5.0); Albumin/Globulin Ratio 0.7 (0.8-1.8); Bilirubin, Total 0.6 mg/dL (0.1-1.0); Calcium, Blood 9.1 mg/dL (8.5-10.1); Creatinine, Blood 0.97 mg/dL (0.40-1.00); Potassium, Blood 4.7 mmol/L (3.5-5.5); Total Protein, Blood 6.9 g/dL (6.4-8.2)
== END ==
LOC: LAB SHORT 17:20 → LAB 17:20
PROVIDERS: Nurse Practitioner Family
DX: E11.622 Type 2 diabetes mellitus with other skin ulcer (principal); L98.499 Non-pressure chronic ulcer of skin of other sites with unspecified severity
CPT/HCPCS: 80053; 85025

== ENCOUNTER 2020-02-26 00:42 | Day surgery (SDC) | payer MEDICARE, OTHER ==
[~2020-02-26 00:42] MED LIST changes: -ACET325 PO; -ATOR40TA PO; -BUME1 PO; -ELIQUIS2.5 MG PO; -GLIP5 PO; -Glipizide Xl2.5 MG PO; -HYDROCODONE-AC1 EA11 PO; -NYAMYC15 G2 TOP; -Norco 7.5-3251 EACH PO; -POTA10T PO; -TRESIBA FL100 UNIT/2 SC; -VITAMIN D310 MC5 PO
== END 2020-02-26 23:36 | disposition home or self-care (01) ==
LOC: WOUND 00:42
DX: E11.622 Type 2 diabetes mellitus with other skin ulcer (principal); S80.922D Unspecified superficial injury of left lower leg, subsequent encounter; L97.822 Non-pressure chronic ulcer of other part of left lower leg with fat layer exposed; I87.2 Venous insufficiency (chronic) (peripheral); E11.22 Type 2 diabetes mellitus with diabetic chronic kidney disease; I12.9 Hypertensive chronic kidney disease with stage 1 through stage 4 chronic kidney disease, or unspecified chronic kidney disease; N18.9 Chronic kidney disease, unspecified; E78.5 Hyperlipidemia, unspecified; E66.9 Obesity, unspecified; Z68.28 Body mass index [BMI] 28.0-28.9, adult; Z79.899 Other long term (current) drug therapy; Z79.82 Long term (current) use of aspirin

== ENCOUNTER → 2020-02-29 | Outpatient (CLI) | payer MEDICARE, OTHER ==
[~2020-02-29] MED LIST changes: +ACET325 PO; +ATOR40TA PO; +BUME1 PO; +ELIQUIS2.5 MG PO; +GLIP5 PO; +Glipizide Xl2.5 MG PO; +HYDROCODONE-AC1 EA11 PO; +NYAMYC15 G2 TOP; +Norco 7.5-3251 EACH PO; +POTA10T PO; +TRESIBA FL100 UNIT/2 SC; +VITAMIN D310 MC5 PO
[2020-02-29 15:35] LABS: Albumin, Blood 2.9 g/dL (3.4-5.0); Prealbumin, Blood 17.7 mg/dL (20.0-40.0)
== END ==
LOC: PLD 14:26 → LAB SHORT 14:26
PROVIDERS: Surgery
DX: E11.622 Type 2 diabetes mellitus with other skin ulcer (principal); L97.829 Non-pressure chronic ulcer of other part of left lower leg with unspecified severity
CPT/HCPCS: 82040; 84134

== ENCOUNTER 2020-03-15 00:47 | Day surgery (SDC) | payer MEDICARE, OTHER ==
[~2020-03-15 00:47] MED LIST changes: -ACET325 PO; -ATOR40TA PO; -BUME1 PO; -ELIQUIS2.5 MG PO; -GLIP5 PO; -Glipizide Xl2.5 MG PO; -HYDROCODONE-AC1 EA11 PO; -NYAMYC15 G2 TOP; -Norco 7.5-3251 EACH PO; -POTA10T PO; -TRESIBA FL100 UNIT/2 SC; -VITAMIN D310 MC5 PO
== END 2020-03-15 22:50 | disposition home or self-care (01) ==
LOC: WOUND 00:47
DX: E11.621 Type 2 diabetes mellitus with foot ulcer (principal); E11.622 Type 2 diabetes mellitus with other skin ulcer; L97.422 Non-pressure chronic ulcer of left heel and midfoot with fat layer exposed; L97.822 Non-pressure chronic ulcer of other part of left lower leg with fat layer exposed; I87.2 Venous insufficiency (chronic) (peripheral); E11.22 Type 2 diabetes mellitus with diabetic chronic kidney disease; I12.9 Hypertensive chronic kidney disease with stage 1 through stage 4 chronic kidney disease, or unspecified chronic kidney disease; N18.9 Chronic kidney disease, unspecified; E78.5 Hyperlipidemia, unspecified; M19.90 Unspecified osteoarthritis, unspecified site; E66.9 Obesity, unspecified; Z86.718 Personal history of other venous thrombosis and embolism; Z95.0 Presence of cardiac pacemaker; Z85.828 Personal history of other malignant neoplasm of skin; Z98.62 Peripheral vascular angioplasty status; Z68.28 Body mass index [BMI] 28.0-28.9, adult

== ENCOUNTER 2020-03-21 00:38 | Day surgery (SDC) | payer MEDICARE, OTHER | END 2020-03-21 23:13 | disposition home or self-care (01) | LOC: WOUND 00:38 | DX: E11.621 Type 2 diabetes mellitus with foot ulcer (principal); L97.422 Non-pressure chronic ulcer of left heel and midfoot with fat layer exposed; E11.622 Type 2 diabetes mellitus with other skin ulcer; L97.823 Non-pressure chronic ulcer of other part of left lower leg with necrosis of muscle; E11.52 Type 2 diabetes mellitus with diabetic peripheral angiopathy with gangrene; I96 Gangrene, not elsewhere classified; I87.2 Venous insufficiency (chronic) (peripheral); I13.2 Hypertensive heart and chronic kidney disease with heart failure and with stage 5 chronic kidney disease, or end stage renal disease; E11.22 Type 2 diabetes mellitus with diabetic chronic kidney disease; N18.6 End stage renal disease; I50.9 Heart failure, unspecified; D63.1 Anemia in chronic kidney disease; E78.5 Hyperlipidemia, unspecified; K74.60 Unspecified cirrhosis of liver; M19.90 Unspecified osteoarthritis, unspecified site; E66.9 Obesity, unspecified; Z68.28 Body mass index [BMI] 28.0-28.9, adult; Z88.0 Allergy status to penicillin; Z88.8 Allergy status to other drugs, medicaments and biological substances; Z91.040 Latex allergy status; Z79.82 Long term (current) use of aspirin; Z79.899 Other long term (current) drug therapy; Z86.718 Personal history of other venous thrombosis and embolism; Z95.0 Presence of cardiac pacemaker | CPT/HCPCS: A9270 ==

== ENCOUNTER 2020-03-28 00:28 | Day surgery (SDC) | payer MEDICARE, OTHER | END 2020-03-28 22:47 | disposition home or self-care (01) | LOC: WOUND 00:28 | DX: E11.621 Type 2 diabetes mellitus with foot ulcer (principal); L97.422 Non-pressure chronic ulcer of left heel and midfoot with fat layer exposed; E11.622 Type 2 diabetes mellitus with other skin ulcer; L97.822 Non-pressure chronic ulcer of other part of left lower leg with fat layer exposed; S81.802A Unspecified open wound, left lower leg, initial encounter; X58.XXXA Exposure to other specified factors, initial encounter; E11.52 Type 2 diabetes mellitus with diabetic peripheral angiopathy with gangrene; I87.2 Venous insufficiency (chronic) (peripheral); I13.2 Hypertensive heart and chronic kidney disease with heart failure and with stage 5 chronic kidney disease, or end stage renal disease; I50.9 Heart failure, unspecified; E11.22 Type 2 diabetes mellitus with diabetic chronic kidney disease; N18.6 End stage renal disease; E78.5 Hyperlipidemia, unspecified; E66.9 Obesity, unspecified; M19.90 Unspecified osteoarthritis, unspecified site; Z68.28 Body mass index [BMI] 28.0-28.9, adult; Z88.0 Allergy status to penicillin; Z88.8 Allergy status to other drugs, medicaments and biological substances; Z91.040 Latex allergy status; Z79.82 Long term (current) use of aspirin; Z79.899 Other long term (current) drug therapy | CPT/HCPCS: A9270 ==

== ENCOUNTER 2020-04-04 00:21 | Day surgery (SDC) | payer MEDICARE, OTHER | END 2020-04-04 22:44 | disposition home or self-care (01) | LOC: WOUND 00:21 | DX: E11.621 Type 2 diabetes mellitus with foot ulcer (principal); E11.622 Type 2 diabetes mellitus with other skin ulcer; L97.422 Non-pressure chronic ulcer of left heel and midfoot with fat layer exposed; L97.822 Non-pressure chronic ulcer of other part of left lower leg with fat layer exposed; E11.22 Type 2 diabetes mellitus with diabetic chronic kidney disease; N18.9 Chronic kidney disease, unspecified; K75.81 Nonalcoholic steatohepatitis (NASH); I95.1 Orthostatic hypotension; E66.9 Obesity, unspecified; M19.90 Unspecified osteoarthritis, unspecified site; I82.591 Chronic embolism and thrombosis of other specified deep vein of right lower extremity; I87.2 Venous insufficiency (chronic) (peripheral); I82.511 Chronic embolism and thrombosis of right femoral vein; Z68.28 Body mass index [BMI] 28.0-28.9, adult; Z98.62 Peripheral vascular angioplasty status; Z95.0 Presence of cardiac pacemaker; Z85.828 Personal history of other malignant neoplasm of skin; Z88.0 Allergy status to penicillin; Z88.8 Allergy status to other drugs, medicaments and biological substances; Z91.040 Latex allergy status | CPT/HCPCS: A9270 ==

== ENCOUNTER 2020-04-11 00:42 | Day surgery (SDC) | payer MEDICARE, OTHER | END 2020-04-11 23:45 | LOC: WOUND 00:42 | DX: E11.621 Type 2 diabetes mellitus with foot ulcer (principal); L97.422 Non-pressure chronic ulcer of left heel and midfoot with fat layer exposed; E11.622 Type 2 diabetes mellitus with other skin ulcer; L97.825 Non-pressure chronic ulcer of other part of left lower leg with muscle involvement without evidence of necrosis; L97.821 Non-pressure chronic ulcer of other part of left lower leg limited to breakdown of skin; I12.9 Hypertensive chronic kidney disease with stage 1 through stage 4 chronic kidney disease, or unspecified chronic kidney disease; E11.22 Type 2 diabetes mellitus with diabetic chronic kidney disease; E11.51 Type 2 diabetes mellitus with diabetic peripheral angiopathy without gangrene; N18.9 Chronic kidney disease, unspecified; E78.5 Hyperlipidemia, unspecified; E11.59 Type 2 diabetes mellitus with other circulatory complications; E66.9 Obesity, unspecified; Z86.718 Personal history of other venous thrombosis and embolism; Z85.828 Personal history of other malignant neoplasm of skin | CPT/HCPCS: A9270 ==

== ENCOUNTER 2020-04-18 00:38 | Day surgery (SDC) | payer MEDICARE, OTHER | END 2020-04-18 23:30 | disposition home or self-care (01) | LOC: WOUND 00:38 | DX: E11.621 Type 2 diabetes mellitus with foot ulcer (principal); E11.622 Type 2 diabetes mellitus with other skin ulcer; L97.522 Non-pressure chronic ulcer of other part of left foot with fat layer exposed; L97.825 Non-pressure chronic ulcer of other part of left lower leg with muscle involvement without evidence of necrosis; I87.2 Venous insufficiency (chronic) (peripheral); I12.9 Hypertensive chronic kidney disease with stage 1 through stage 4 chronic kidney disease, or unspecified chronic kidney disease; E11.22 Type 2 diabetes mellitus with diabetic chronic kidney disease; N18.9 Chronic kidney disease, unspecified; I95.1 Orthostatic hypotension; E78.5 Hyperlipidemia, unspecified; E11.59 Type 2 diabetes mellitus with other circulatory complications; K57.81 Diverticulitis of intestine, part unspecified, with perforation and abscess with bleeding; M19.90 Unspecified osteoarthritis, unspecified site; E66.9 Obesity, unspecified; Z86.718 Personal history of other venous thrombosis and embolism; Z85.828 Personal history of other malignant neoplasm of skin; Z68.28 Body mass index [BMI] 28.0-28.9, adult; Z98.62 Peripheral vascular angioplasty status; Z95.0 Presence of cardiac pacemaker; Z88.0 Allergy status to penicillin; Z88.8 Allergy status to other drugs, medicaments and biological substances; Z91.040 Latex allergy status | CPT/HCPCS: A9270 ==

== ENCOUNTER 2020-04-25 00:32 | Day surgery (SDC) | payer MEDICARE, OTHER | END 2020-04-25 23:59 | disposition home or self-care (01) | LOC: WOUND 00:32 | DX: E11.621 Type 2 diabetes mellitus with foot ulcer (principal); I87.2 Venous insufficiency (chronic) (peripheral); E11.622 Type 2 diabetes mellitus with other skin ulcer; L97.822 Non-pressure chronic ulcer of other part of left lower leg with fat layer exposed; L97.522 Non-pressure chronic ulcer of other part of left foot with fat layer exposed; E11.22 Type 2 diabetes mellitus with diabetic chronic kidney disease; N18.9 Chronic kidney disease, unspecified; E66.9 Obesity, unspecified; Z95.0 Presence of cardiac pacemaker; Z88.0 Allergy status to penicillin; Z88.8 Allergy status to other drugs, medicaments and biological substances | CPT/HCPCS: A9270 ==

== ENCOUNTER 2020-05-02 00:49 | Day surgery (SDC) | payer MEDICARE, OTHER ==
[2020-05-03] MEDS ORDERED: ELIQUIS2.5 MG PO (09:08)
[2020-05-03] MEDS ORDERED: ATOR40TA PO (09:09)
[2020-05-03] MEDS ORDERED: VITAMIN D310 MC5 PO (09:10)
[2020-05-03] MEDS ORDERED: BUME1 PO (09:10)
[2020-05-03] MEDS ORDERED: GLIP5 PO (09:11)
[2020-05-03] MEDS ORDERED: NYAMYC15 G2 TOP (09:11)
[2020-05-03] MEDS ORDERED: HYDROCODONE-AC1 EA11 PO (09:12)
[2020-05-03] MEDS ORDERED: POTA10T PO (09:12)
== END 2020-05-02 22:56 | disposition home or self-care (01) ==
LOC: WOUND 00:49
DX: E11.621 Type 2 diabetes mellitus with foot ulcer (principal); E11.622 Type 2 diabetes mellitus with other skin ulcer; L97.822 Non-pressure chronic ulcer of other part of left lower leg with fat layer exposed; L97.522 Non-pressure chronic ulcer of other part of left foot with fat layer exposed; I87.2 Venous insufficiency (chronic) (peripheral); I12.9 Hypertensive chronic kidney disease with stage 1 through stage 4 chronic kidney disease, or unspecified chronic kidney disease; E11.22 Type 2 diabetes mellitus with diabetic chronic kidney disease; N18.9 Chronic kidney disease, unspecified; I95.1 Orthostatic hypotension; E78.5 Hyperlipidemia, unspecified; I70.213 Atherosclerosis of native arteries of extremities with intermittent claudication, bilateral legs; E11.59 Type 2 diabetes mellitus with other circulatory complications; K57.81 Diverticulitis of intestine, part unspecified, with perforation and abscess with bleeding; M19.90 Unspecified osteoarthritis, unspecified site; E66.9 Obesity, unspecified; Z86.718 Personal history of other venous thrombosis and embolism; Z85.828 Personal history of other malignant neoplasm of skin; Z68.28 Body mass index [BMI] 28.0-28.9, adult; Z98.62 Peripheral vascular angioplasty status; Z95.0 Presence of cardiac pacemaker; Z88.0 Allergy status to penicillin; Z88.8 Allergy status to other drugs, medicaments and biological substances; Z91.040 Latex allergy status
CPT/HCPCS: 36415; 80048; 85007; 85027; 85610; A9270

== ENCOUNTER 2020-05-03 08:26 | Day surgery (SDC) | payer MEDICARE, OTHER ==
[~2020-05-03] VITALS: Ht 162.6 cm; Wt 72.0 kg
[2020-05-03] MEDS ORDERED: ELIQUIS2.5 MG PO (09:08)
[2020-05-03] MEDS ORDERED: ATOR40TA PO (09:09)
[2020-05-03] MEDS ORDERED: BUME1 PO (09:10)
[2020-05-03] MEDS ORDERED: VITAMIN D310 MC5 PO (09:10)
[2020-05-03] MEDS ORDERED: NYAMYC15 G2 TOP (09:11)
[2020-05-03] MEDS ORDERED: GLIP5 PO (09:11)
[2020-05-03] MEDS ORDERED: HYDROCODONE-AC1 EA11 PO (09:12)
[2020-05-03] MEDS ORDERED: POTA10T PO (09:12)
--- NOTE | 2020-05-03 09:20 | NUR ---
H&P REVIEWED WITH PATIENT. NO CHANGES NOTED. PT HERE FOR PERIPHEARL ANGIOGRAM TO TERRAE. VSS. [place]. A&O X4. BILATERAL DP & PT PULSES DOPPLER NOTED. CALL LIGHT WITHIN REACH. KAMRAN, CAREGIVER . CONTACT FOR RIDE.
--- NOTE | 2020-05-03 11:32 | NUR ---
PT RETURNED TO RECOVERY ROOM IN BED. RIGHT FEMORAL GROIN SITE SOFT NON-TENDER WITH NO HEMATOMA, NO PULSATILE BLEEDING AND INTACT DRESSING WITH DAVID. PT'S LRE WRAPPED IN MICHAEL BANDAGE AND SOCK. PT IS TALKING WITH DR. WONG. CALL LIGHT IN REACH.
--- NOTE | 2020-05-03 12:40 | NUR ---
PT EATING LUNCH.
--- NOTE | 2020-05-03 13:10 | NUR ---
PT HOB UP TO 45 DEGREES. RIGHT FEMORAL NO CHANGES; STILL SOFT NON-TENDER WITH NO HEMATOMA, NO PULSATILE BLEEDING AND INTACT DRESSING.
--- NOTE | 2020-05-03 13:45 | NUR ---
THEA VITAL NOTED NO CHANGES TO RIGHT FEMORAL GROIN SITE. THEA DAVILA HELPED PT TO GET DRESSED AND AMBULATE TO BR WITH WALKER TO VOID.
--- NOTE | 2020-05-03 13:54 | NUR ---
THEA VITAL DISCONTINUED LEFT AC 20 G IV WITH INTACT CANNULA.
--- NOTE | 2020-05-03 14:20 | NUR ---
PT'S CAREGIVER, KAMRAN, IN ROOM. DISCHARGE INSTRUCTIONS REVIEWED ALL QUESTIONS ANSWERED. RIGHT FEMORAL GROIN SITE REVIEWED - SOFT NON-TENDER WITH NO HEMATOMA, NO BLEEDING AND INTACT DRESSING. PT ESCORTED OUT VIA WHEELCHAIR ESCORT.
== END 2020-05-03 15:00 | disposition home or self-care (01) ==
LOC: MHTC 08:26 → ORSCMMR 08:26 → MHTC 08:30
DX: I73.9 Peripheral vascular disease, unspecified (principal); E11.621 Type 2 diabetes mellitus with foot ulcer; L97.522 Non-pressure chronic ulcer of other part of left foot with fat layer exposed; E11.622 Type 2 diabetes mellitus with other skin ulcer; L97.822 Non-pressure chronic ulcer of other part of left lower leg with fat layer exposed; I87.2 Venous insufficiency (chronic) (peripheral); I12.9 Hypertensive chronic kidney disease with stage 1 through stage 4 chronic kidney disease, or unspecified chronic kidney disease; E11.22 Type 2 diabetes mellitus with diabetic chronic kidney disease; N18.9 Chronic kidney disease, unspecified; I95.1 Orthostatic hypotension; E78.5 Hyperlipidemia, unspecified; E11.59 Type 2 diabetes mellitus with other circulatory complications; K57.81 Diverticulitis of intestine, part unspecified, with perforation and abscess with bleeding; M19.90 Unspecified osteoarthritis, unspecified site; E66.9 Obesity, unspecified; Z86.718 Personal history of other venous thrombosis and embolism; Z85.828 Personal history of other malignant neoplasm of skin; Z68.28 Body mass index [BMI] 28.0-28.9, adult; Z98.62 Peripheral vascular angioplasty status; Z95.0 Presence of cardiac pacemaker; Z88.0 Allergy status to penicillin; Z88.8 Allergy status to other drugs, medicaments and biological substances; Z91.040 Latex allergy status
CPT/HCPCS: 37228; 37232; 75716; 75774; 99152; 99153; C1725; C1760; C1769; C1887; C1894; J1644; J2250; J3010; J7030; J7050; Q9967

== ENCOUNTER 2020-05-09 00:53 | Day surgery (SDC) | payer MEDICARE, OTHER ==
[~2020-05-09 00:53] MED LIST changes: +ATOR40TA PO; +BUME1 PO; +ELIQUIS2.5 MG PO; +GLIP5 PO; +HYDROCODONE-AC1 EA11 PO; +NYAMYC15 G2 TOP; +POTA10T PO; +VITAMIN D310 MC5 PO
== END 2020-05-09 22:54 | disposition home or self-care (01) ==
LOC: WOUND 00:53
DX: E11.622 Type 2 diabetes mellitus with other skin ulcer (principal); E11.621 Type 2 diabetes mellitus with foot ulcer; L97.822 Non-pressure chronic ulcer of other part of left lower leg with fat layer exposed; L97.522 Non-pressure chronic ulcer of other part of left foot with fat layer exposed; I87.2 Venous insufficiency (chronic) (peripheral); I12.9 Hypertensive chronic kidney disease with stage 1 through stage 4 chronic kidney disease, or unspecified chronic kidney disease; E11.22 Type 2 diabetes mellitus with diabetic chronic kidney disease; N18.9 Chronic kidney disease, unspecified; K75.81 Nonalcoholic steatohepatitis (NASH); E78.5 Hyperlipidemia, unspecified; M19.90 Unspecified osteoarthritis, unspecified site; E66.9 Obesity, unspecified; Z86.718 Personal history of other venous thrombosis and embolism; Z95.0 Presence of cardiac pacemaker; Z85.828 Personal history of other malignant neoplasm of skin; Z98.62 Peripheral vascular angioplasty status; Z68.29 Body mass index [BMI] 29.0-29.9, adult
CPT/HCPCS: A9270

== ENCOUNTER 2020-05-16 01:22 | Day surgery (SDC) | payer MEDICARE, OTHER | END 2020-05-16 23:08 | disposition home or self-care (01) | LOC: WOUND 01:22 | DX: E11.621 Type 2 diabetes mellitus with foot ulcer (principal); L97.422 Non-pressure chronic ulcer of left heel and midfoot with fat layer exposed; E11.622 Type 2 diabetes mellitus with other skin ulcer; L97.822 Non-pressure chronic ulcer of other part of left lower leg with fat layer exposed; I87.2 Venous insufficiency (chronic) (peripheral); I12.9 Hypertensive chronic kidney disease with stage 1 through stage 4 chronic kidney disease, or unspecified chronic kidney disease; E11.22 Type 2 diabetes mellitus with diabetic chronic kidney disease; N18.9 Chronic kidney disease, unspecified; E78.5 Hyperlipidemia, unspecified; E11.59 Type 2 diabetes mellitus with other circulatory complications; K75.81 Nonalcoholic steatohepatitis (NASH); M19.90 Unspecified osteoarthritis, unspecified site; E66.9 Obesity, unspecified; Z68.28 Body mass index [BMI] 28.0-28.9, adult; Z95.0 Presence of cardiac pacemaker; Z85.828 Personal history of other malignant neoplasm of skin | CPT/HCPCS: A9270 ==

== ENCOUNTER 2020-05-23 00:09 | Day surgery (SDC) | payer MEDICARE, OTHER | END 2020-05-23 23:05 | disposition home or self-care (01) | LOC: WOUND 00:09 | DX: E11.621 Type 2 diabetes mellitus with foot ulcer (principal); L97.422 Non-pressure chronic ulcer of left heel and midfoot with fat layer exposed; E11.622 Type 2 diabetes mellitus with other skin ulcer; L97.825 Non-pressure chronic ulcer of other part of left lower leg with muscle involvement without evidence of necrosis; I87.2 Venous insufficiency (chronic) (peripheral); E11.22 Type 2 diabetes mellitus with diabetic chronic kidney disease; I12.9 Hypertensive chronic kidney disease with stage 1 through stage 4 chronic kidney disease, or unspecified chronic kidney disease; N18.9 Chronic kidney disease, unspecified; M19.90 Unspecified osteoarthritis, unspecified site; E78.5 Hyperlipidemia, unspecified; E66.9 Obesity, unspecified; K75.81 Nonalcoholic steatohepatitis (NASH); Z85.828 Personal history of other malignant neoplasm of skin; Z86.718 Personal history of other venous thrombosis and embolism; Z95.0 Presence of cardiac pacemaker; Z98.62 Peripheral vascular angioplasty status; Z68.29 Body mass index [BMI] 29.0-29.9, adult | CPT/HCPCS: A9270 ==

== ENCOUNTER 2020-05-30 00:43 | Day surgery (SDC) | payer MEDICARE, OTHER | END 2020-05-30 23:01 | disposition home or self-care (01) | LOC: WOUND 00:43 | DX: E11.621 Type 2 diabetes mellitus with foot ulcer (principal); L97.822 Non-pressure chronic ulcer of other part of left lower leg with fat layer exposed; L97.522 Non-pressure chronic ulcer of other part of left foot with fat layer exposed; I87.2 Venous insufficiency (chronic) (peripheral); E11.622 Type 2 diabetes mellitus with other skin ulcer; E11.22 Type 2 diabetes mellitus with diabetic chronic kidney disease; N18.9 Chronic kidney disease, unspecified; Z95.0 Presence of cardiac pacemaker | CPT/HCPCS: A9270 ==

== ENCOUNTER 2020-06-06 02:20 | Day surgery (SDC) | payer MEDICARE, OTHER | END 2020-06-06 23:36 | disposition home or self-care (01) | LOC: WOUND 02:20 | DX: E11.621 Type 2 diabetes mellitus with foot ulcer (principal); L97.522 Non-pressure chronic ulcer of other part of left foot with fat layer exposed; E11.622 Type 2 diabetes mellitus with other skin ulcer; L97.822 Non-pressure chronic ulcer of other part of left lower leg with fat layer exposed; I87.2 Venous insufficiency (chronic) (peripheral); I12.9 Hypertensive chronic kidney disease with stage 1 through stage 4 chronic kidney disease, or unspecified chronic kidney disease; N18.9 Chronic kidney disease, unspecified; E11.22 Type 2 diabetes mellitus with diabetic chronic kidney disease; E78.5 Hyperlipidemia, unspecified | CPT/HCPCS: A9270 ==

== ENCOUNTER 2020-06-13 00:21 | Day surgery (SDC) | payer MEDICARE, OTHER | END 2020-06-13 22:59 | disposition home or self-care (01) | LOC: WOUND 00:21 | DX: E11.622 Type 2 diabetes mellitus with other skin ulcer (principal); E11.621 Type 2 diabetes mellitus with foot ulcer; L97.825 Non-pressure chronic ulcer of other part of left lower leg with muscle involvement without evidence of necrosis; L97.422 Non-pressure chronic ulcer of left heel and midfoot with fat layer exposed; E11.51 Type 2 diabetes mellitus with diabetic peripheral angiopathy without gangrene; K75.81 Nonalcoholic steatohepatitis (NASH); E11.22 Type 2 diabetes mellitus with diabetic chronic kidney disease; I12.9 Hypertensive chronic kidney disease with stage 1 through stage 4 chronic kidney disease, or unspecified chronic kidney disease; N18.9 Chronic kidney disease, unspecified; E78.5 Hyperlipidemia, unspecified; M19.90 Unspecified osteoarthritis, unspecified site; E66.9 Obesity, unspecified; C44.90 Unspecified malignant neoplasm of skin, unspecified; Z86.718 Personal history of other venous thrombosis and embolism; Z95.0 Presence of cardiac pacemaker | CPT/HCPCS: A9270 ==

== ENCOUNTER 2020-06-15 00:38 | Day surgery (SDC) | payer MEDICARE, OTHER | END 2020-06-15 22:45 | disposition home or self-care (01) | LOC: WOUND 00:38 | DX: E11.621 Type 2 diabetes mellitus with foot ulcer (principal); L97.522 Non-pressure chronic ulcer of other part of left foot with fat layer exposed; E11.622 Type 2 diabetes mellitus with other skin ulcer; L97.822 Non-pressure chronic ulcer of other part of left lower leg with fat layer exposed; I87.2 Venous insufficiency (chronic) (peripheral) ==

== ENCOUNTER 2020-06-20 00:48 | Day surgery (SDC) | payer MEDICARE, OTHER | END 2020-06-20 22:55 | disposition home or self-care (01) | LOC: WOUND 00:48 | DX: E11.621 Type 2 diabetes mellitus with foot ulcer (principal); L97.422 Non-pressure chronic ulcer of left heel and midfoot with fat layer exposed; I87.2 Venous insufficiency (chronic) (peripheral); E11.622 Type 2 diabetes mellitus with other skin ulcer; L97.825 Non-pressure chronic ulcer of other part of left lower leg with muscle involvement without evidence of necrosis; E11.51 Type 2 diabetes mellitus with diabetic peripheral angiopathy without gangrene; K75.81 Nonalcoholic steatohepatitis (NASH); I12.9 Hypertensive chronic kidney disease with stage 1 through stage 4 chronic kidney disease, or unspecified chronic kidney disease; E11.22 Type 2 diabetes mellitus with diabetic chronic kidney disease; N18.9 Chronic kidney disease, unspecified; E78.5 Hyperlipidemia, unspecified; M19.90 Unspecified osteoarthritis, unspecified site; E66.9 Obesity, unspecified; C44.90 Unspecified malignant neoplasm of skin, unspecified; Z86.718 Personal history of other venous thrombosis and embolism; Z95.0 Presence of cardiac pacemaker; Z68.28 Body mass index [BMI] 28.0-28.9, adult | CPT/HCPCS: A9270 ==

== ENCOUNTER 2020-06-27 00:26 | Day surgery (SDC) | payer MEDICARE, OTHER | END 2020-06-27 22:58 | disposition home or self-care (01) | LOC: WOUND 00:26 | DX: E11.622 Type 2 diabetes mellitus with other skin ulcer (principal); L97.825 Non-pressure chronic ulcer of other part of left lower leg with muscle involvement without evidence of necrosis; L97.811 Non-pressure chronic ulcer of other part of right lower leg limited to breakdown of skin; E11.621 Type 2 diabetes mellitus with foot ulcer; L97.422 Non-pressure chronic ulcer of left heel and midfoot with fat layer exposed; I87.2 Venous insufficiency (chronic) (peripheral); R60.0 Localized edema; E11.22 Type 2 diabetes mellitus with diabetic chronic kidney disease; I12.9 Hypertensive chronic kidney disease with stage 1 through stage 4 chronic kidney disease, or unspecified chronic kidney disease; N18.9 Chronic kidney disease, unspecified; E78.5 Hyperlipidemia, unspecified; M19.90 Unspecified osteoarthritis, unspecified site; E66.9 Obesity, unspecified; Z68.28 Body mass index [BMI] 28.0-28.9, adult; Z86.718 Personal history of other venous thrombosis and embolism; Z95.0 Presence of cardiac pacemaker; Z85.828 Personal history of other malignant neoplasm of skin | CPT/HCPCS: A9270 ==

== ENCOUNTER 2020-07-04 00:15 | Day surgery (SDC) | payer MEDICARE, OTHER | END 2020-07-04 23:12 | disposition home or self-care (01) | LOC: WOUND 00:15 | DX: E11.622 Type 2 diabetes mellitus with other skin ulcer (principal); L97.822 Non-pressure chronic ulcer of other part of left lower leg with fat layer exposed; E11.621 Type 2 diabetes mellitus with foot ulcer; L97.522 Non-pressure chronic ulcer of other part of left foot with fat layer exposed; I12.9 Hypertensive chronic kidney disease with stage 1 through stage 4 chronic kidney disease, or unspecified chronic kidney disease; N18.9 Chronic kidney disease, unspecified; E78.5 Hyperlipidemia, unspecified; Z86.718 Personal history of other venous thrombosis and embolism; E11.51 Type 2 diabetes mellitus with diabetic peripheral angiopathy without gangrene | CPT/HCPCS: A9270 ==

== ENCOUNTER 2020-07-11 00:20 | Day surgery (SDC) | payer MEDICARE, OTHER | END 2020-07-11 23:09 | disposition home or self-care (01) | LOC: WOUND 00:20 | DX: E11.622 Type 2 diabetes mellitus with other skin ulcer (principal); L97.822 Non-pressure chronic ulcer of other part of left lower leg with fat layer exposed; L97.812 Non-pressure chronic ulcer of other part of right lower leg with fat layer exposed; E11.621 Type 2 diabetes mellitus with foot ulcer; L97.522 Non-pressure chronic ulcer of other part of left foot with fat layer exposed; I87.2 Venous insufficiency (chronic) (peripheral); I12.9 Hypertensive chronic kidney disease with stage 1 through stage 4 chronic kidney disease, or unspecified chronic kidney disease; N18.9 Chronic kidney disease, unspecified; E11.22 Type 2 diabetes mellitus with diabetic chronic kidney disease; E78.5 Hyperlipidemia, unspecified; Z86.718 Personal history of other venous thrombosis and embolism | CPT/HCPCS: A9270 ==

== ENCOUNTER 2020-07-18 00:06 | Day surgery (SDC) | payer MEDICARE, OTHER | END 2020-07-18 23:10 | disposition home or self-care (01) | LOC: WOUND 00:06 | DX: E11.622 Type 2 diabetes mellitus with other skin ulcer (principal); L97.822 Non-pressure chronic ulcer of other part of left lower leg with fat layer exposed; L97.812 Non-pressure chronic ulcer of other part of right lower leg with fat layer exposed; E11.621 Type 2 diabetes mellitus with foot ulcer; L97.522 Non-pressure chronic ulcer of other part of left foot with fat layer exposed; I87.2 Venous insufficiency (chronic) (peripheral); I12.9 Hypertensive chronic kidney disease with stage 1 through stage 4 chronic kidney disease, or unspecified chronic kidney disease; N18.9 Chronic kidney disease, unspecified; E78.5 Hyperlipidemia, unspecified; E66.9 Obesity, unspecified; E11.22 Type 2 diabetes mellitus with diabetic chronic kidney disease; Z86.718 Personal history of other venous thrombosis and embolism | CPT/HCPCS: A9270 ==

== ENCOUNTER 2020-07-25 00:13 | Day surgery (SDC) | payer MEDICARE, OTHER | END 2020-07-25 22:55 | disposition home or self-care (01) | LOC: WOUND 00:13 | DX: E11.621 Type 2 diabetes mellitus with foot ulcer (principal); L97.522 Non-pressure chronic ulcer of other part of left foot with fat layer exposed; E11.622 Type 2 diabetes mellitus with other skin ulcer; L97.812 Non-pressure chronic ulcer of other part of right lower leg with fat layer exposed; L97.822 Non-pressure chronic ulcer of other part of left lower leg with fat layer exposed; I87.2 Venous insufficiency (chronic) (peripheral); I12.9 Hypertensive chronic kidney disease with stage 1 through stage 4 chronic kidney disease, or unspecified chronic kidney disease; N18.9 Chronic kidney disease, unspecified; E11.22 Type 2 diabetes mellitus with diabetic chronic kidney disease; E78.5 Hyperlipidemia, unspecified; Z86.718 Personal history of other venous thrombosis and embolism; Z88.0 Allergy status to penicillin | CPT/HCPCS: A9270 ==

== ENCOUNTER 2020-08-01 00:12 | Day surgery (SDC) | payer MEDICARE, OTHER | END 2020-08-01 23:02 | disposition home or self-care (01) | LOC: WOUND 00:12 | DX: E11.621 Type 2 diabetes mellitus with foot ulcer (principal); L97.528 Non-pressure chronic ulcer of other part of left foot with other specified severity; L97.821 Non-pressure chronic ulcer of other part of left lower leg limited to breakdown of skin; I87.2 Venous insufficiency (chronic) (peripheral); E11.622 Type 2 diabetes mellitus with other skin ulcer; I12.9 Hypertensive chronic kidney disease with stage 1 through stage 4 chronic kidney disease, or unspecified chronic kidney disease; N18.9 Chronic kidney disease, unspecified; E11.22 Type 2 diabetes mellitus with diabetic chronic kidney disease; E78.5 Hyperlipidemia, unspecified; E66.9 Obesity, unspecified; Z86.718 Personal history of other venous thrombosis and embolism | CPT/HCPCS: A9270 ==

== ENCOUNTER 2020-08-15 00:37 | Day surgery (SDC) | payer MEDICARE, OTHER ==
[2020-08-15] MEDS ORDERED: XARELTO15 MG PO (16:33)
[2020-08-15] MEDS ORDERED: Glipizide Xl2.5 MG PO (16:35)
[2020-08-15] MEDS ORDERED: ACET325 PO (16:36)
[2020-08-15] MEDS ORDERED: Norco 7.5-3251 EACH PO (16:36)
[2020-08-15] MEDS ORDERED: TRESIBA FL100 UNIT/2 SC (16:39)
== END 2020-08-15 23:02 | disposition home or self-care (01) ==
LOC: WOUND 00:37
DX: E11.622 Type 2 diabetes mellitus with other skin ulcer (principal); L97.822 Non-pressure chronic ulcer of other part of left lower leg with fat layer exposed; L97.812 Non-pressure chronic ulcer of other part of right lower leg with fat layer exposed; I87.2 Venous insufficiency (chronic) (peripheral); Z86.718 Personal history of other venous thrombosis and embolism; I12.9 Hypertensive chronic kidney disease with stage 1 through stage 4 chronic kidney disease, or unspecified chronic kidney disease; N18.9 Chronic kidney disease, unspecified; E78.5 Hyperlipidemia, unspecified; Z85.828 Personal history of other malignant neoplasm of skin; I73.9 Peripheral vascular disease, unspecified
CPT/HCPCS: 36415; 80048; 85007; 85027; 85610; A9270

== ENCOUNTER 2020-08-22 00:26 | Day surgery (SDC) | payer MEDICARE, OTHER ==
[~2020-08-22 00:26] MED LIST changes: +ACET325 PO; +Glipizide Xl2.5 MG PO; +Norco 7.5-3251 EACH PO; +TRESIBA FL100 UNIT/2 SC
== END 2020-08-22 23:20 | disposition home or self-care (01) ==
LOC: WOUND 00:26
DX: E11.622 Type 2 diabetes mellitus with other skin ulcer (principal); L97.828 Non-pressure chronic ulcer of other part of left lower leg with other specified severity; L97.818 Non-pressure chronic ulcer of other part of right lower leg with other specified severity; I87.2 Venous insufficiency (chronic) (peripheral); E11.59 Type 2 diabetes mellitus with other circulatory complications; E11.22 Type 2 diabetes mellitus with diabetic chronic kidney disease; N18.9 Chronic kidney disease, unspecified; E66.9 Obesity, unspecified; Z68.28 Body mass index [BMI] 28.0-28.9, adult; Z88.1 Allergy status to other antibiotic agents; Z88.8 Allergy status to other drugs, medicaments and biological substances
CPT/HCPCS: A9270

== ENCOUNTER 2020-08-29 00:43 | Day surgery (SDC) | payer MEDICARE, OTHER | END 2020-08-30 02:58 | disposition home or self-care (01) | LOC: WOUND 00:43 | DX: E11.622 Type 2 diabetes mellitus with other skin ulcer (principal); L97.828 Non-pressure chronic ulcer of other part of left lower leg with other specified severity; L97.818 Non-pressure chronic ulcer of other part of right lower leg with other specified severity; I87.2 Venous insufficiency (chronic) (peripheral) | CPT/HCPCS: A9270 ==

== ENCOUNTER 2020-08-30 09:34 | Day surgery (SDC) | payer MEDICARE, OTHER ==
[~2020-08-30] VITALS: Ht 162.6 cm; Wt 84.0 kg
--- NOTE | 2020-08-30 15:40 | NUR ---
PT DEPENDS CHANGED, DRESSED, TIGHT COBAN WRAP REMOVED FROM L LEG, UNDERWRAP LEFT IN PLACE, IV DC'D INTACT, PT'S CAREGIVER PRESENT, PT DC'D BY WC, CAREGIVER DRIVING PT HOME
== END 2020-08-30 15:30 | disposition home or self-care (01) ==
LOC: MHTC 09:34 → ORSCMMR 09:34 → MHTC 09:53
DX: E11.51 Type 2 diabetes mellitus with diabetic peripheral angiopathy without gangrene (principal); I70.223 Atherosclerosis of native arteries of extremities with rest pain, bilateral legs; E11.622 Type 2 diabetes mellitus with other skin ulcer; L97.829 Non-pressure chronic ulcer of other part of left lower leg with unspecified severity; L97.819 Non-pressure chronic ulcer of other part of right lower leg with unspecified severity; I48.0 Paroxysmal atrial fibrillation; I12.9 Hypertensive chronic kidney disease with stage 1 through stage 4 chronic kidney disease, or unspecified chronic kidney disease; E11.22 Type 2 diabetes mellitus with diabetic chronic kidney disease; N18.30 Chronic kidney disease, stage 3 unspecified; I87.2 Venous insufficiency (chronic) (peripheral); Z79.82 Long term (current) use of aspirin; E78.5 Hyperlipidemia, unspecified; Z95.0 Presence of cardiac pacemaker; Z85.828 Personal history of other malignant neoplasm of skin; Z85.048 Personal history of other malignant neoplasm of rectum, rectosigmoid junction, and anus; Z79.84 Long term (current) use of oral hypoglycemic drugs
CPT/HCPCS: 37228; 37232; 75716; 75774; 76937; 85347; 99152; 99153; C1725; C1760; C1769; C1887; C1894; J2250; J3010; J7030; J7050; Q9967

== ENCOUNTER 2020-09-05 00:36 | Day surgery (SDC) | payer MEDICARE, OTHER | END 2020-09-05 23:40 | disposition home or self-care (01) | LOC: WOUND 00:36 | DX: E11.622 Type 2 diabetes mellitus with other skin ulcer (principal); L97.821 Non-pressure chronic ulcer of other part of left lower leg limited to breakdown of skin; L97.812 Non-pressure chronic ulcer of other part of right lower leg with fat layer exposed; R60.0 Localized edema; E11.22 Type 2 diabetes mellitus with diabetic chronic kidney disease; I12.9 Hypertensive chronic kidney disease with stage 1 through stage 4 chronic kidney disease, or unspecified chronic kidney disease; N18.9 Chronic kidney disease, unspecified; E11.51 Type 2 diabetes mellitus with diabetic peripheral angiopathy without gangrene; E78.5 Hyperlipidemia, unspecified; K75.81 Nonalcoholic steatohepatitis (NASH); E66.9 Obesity, unspecified; Z86.718 Personal history of other venous thrombosis and embolism; Z95.0 Presence of cardiac pacemaker; Z85.828 Personal history of other malignant neoplasm of skin; Z68.28 Body mass index [BMI] 28.0-28.9, adult | CPT/HCPCS: A9270 ==

== ENCOUNTER 2020-09-13 04:23 | Day surgery (SDC) | payer MEDICARE, OTHER | END 2020-09-13 22:58 | disposition home or self-care (01) | LOC: WOUND 04:23 | DX: E11.622 Type 2 diabetes mellitus with other skin ulcer (principal); L97.812 Non-pressure chronic ulcer of other part of right lower leg with fat layer exposed; L97.828 Non-pressure chronic ulcer of other part of left lower leg with other specified severity; I73.9 Peripheral vascular disease, unspecified; I87.2 Venous insufficiency (chronic) (peripheral); R60.0 Localized edema; I12.9 Hypertensive chronic kidney disease with stage 1 through stage 4 chronic kidney disease, or unspecified chronic kidney disease; N18.9 Chronic kidney disease, unspecified; E11.22 Type 2 diabetes mellitus with diabetic chronic kidney disease; E78.5 Hyperlipidemia, unspecified; Z86.718 Personal history of other venous thrombosis and embolism | CPT/HCPCS: A9270 ==

== ENCOUNTER 2020-09-19 03:36 | Day surgery (SDC) | payer MEDICARE, OTHER | END 2020-09-19 23:00 | disposition home or self-care (01) | LOC: WOUND 03:36 | DX: E11.622 Type 2 diabetes mellitus with other skin ulcer (principal); L97.812 Non-pressure chronic ulcer of other part of right lower leg with fat layer exposed; L97.828 Non-pressure chronic ulcer of other part of left lower leg with other specified severity; R60.0 Localized edema; I87.2 Venous insufficiency (chronic) (peripheral); I73.9 Peripheral vascular disease, unspecified; I12.9 Hypertensive chronic kidney disease with stage 1 through stage 4 chronic kidney disease, or unspecified chronic kidney disease; N18.9 Chronic kidney disease, unspecified; E11.22 Type 2 diabetes mellitus with diabetic chronic kidney disease; E78.5 Hyperlipidemia, unspecified; Z86.718 Personal history of other venous thrombosis and embolism; Z85.828 Personal history of other malignant neoplasm of skin ==

== ENCOUNTER 2020-09-26 01:27 | Day surgery (SDC) | payer MEDICARE, OTHER | END 2020-09-26 23:03 | disposition home or self-care (01) | LOC: WOUND 01:27 | DX: E11.622 Type 2 diabetes mellitus with other skin ulcer (principal); L97.818 Non-pressure chronic ulcer of other part of right lower leg with other specified severity; I73.9 Peripheral vascular disease, unspecified; I87.2 Venous insufficiency (chronic) (peripheral); R60.0 Localized edema; I12.9 Hypertensive chronic kidney disease with stage 1 through stage 4 chronic kidney disease, or unspecified chronic kidney disease; N18.9 Chronic kidney disease, unspecified; E78.5 Hyperlipidemia, unspecified; Z86.718 Personal history of other venous thrombosis and embolism; Z95.0 Presence of cardiac pacemaker | CPT/HCPCS: A9270 ==

== ENCOUNTER 2020-10-03 02:43 | Day surgery (SDC) | payer MEDICARE, OTHER | END 2020-10-03 23:48 | disposition home or self-care (01) | LOC: WOUND 02:43 | DX: E11.622 Type 2 diabetes mellitus with other skin ulcer (principal); L97.818 Non-pressure chronic ulcer of other part of right lower leg with other specified severity; I73.9 Peripheral vascular disease, unspecified; I87.2 Venous insufficiency (chronic) (peripheral); R60.0 Localized edema; E78.5 Hyperlipidemia, unspecified; I12.9 Hypertensive chronic kidney disease with stage 1 through stage 4 chronic kidney disease, or unspecified chronic kidney disease; N18.9 Chronic kidney disease, unspecified; E11.22 Type 2 diabetes mellitus with diabetic chronic kidney disease | CPT/HCPCS: A9270 ==

== ENCOUNTER 2020-10-10 01:49 | Day surgery (SDC) | payer MEDICARE, OTHER | END 2020-10-10 23:07 | disposition home or self-care (01) | LOC: WOUND 01:49 | DX: E11.622 Type 2 diabetes mellitus with other skin ulcer (principal); L97.818 Non-pressure chronic ulcer of other part of right lower leg with other specified severity; I87.2 Venous insufficiency (chronic) (peripheral); R60.0 Localized edema; E11.51 Type 2 diabetes mellitus with diabetic peripheral angiopathy without gangrene; I12.9 Hypertensive chronic kidney disease with stage 1 through stage 4 chronic kidney disease, or unspecified chronic kidney disease; N18.9 Chronic kidney disease, unspecified; E78.5 Hyperlipidemia, unspecified; E66.9 Obesity, unspecified; Z86.718 Personal history of other venous thrombosis and embolism ==

== ENCOUNTER 2020-10-17 00:12 | Day surgery (SDC) | payer MEDICARE, OTHER | END 2020-10-17 22:58 | disposition home or self-care (01) | LOC: WOUND 00:12 | DX: E11.622 Type 2 diabetes mellitus with other skin ulcer (principal); L97.818 Non-pressure chronic ulcer of other part of right lower leg with other specified severity; E11.51 Type 2 diabetes mellitus with diabetic peripheral angiopathy without gangrene; I87.2 Venous insufficiency (chronic) (peripheral); R60.0 Localized edema | CPT/HCPCS: A9270 ==

== ENCOUNTER → 2020-10-17 | Outpatient (CLI) | payer MEDICARE, OTHER | LOC: LAB SHORT 15:59 → LAB 15:59 | DX: D48.5 Neoplasm of uncertain behavior of skin (principal) | CPT/HCPCS: 88305 ==

== ENCOUNTER 2020-10-24 02:44 | Day surgery (SDC) | payer MEDICARE, OTHER | END 2020-10-24 12:00 | disposition home or self-care (01) | LOC: WOUND 02:44 | DX: E11.622 Type 2 diabetes mellitus with other skin ulcer (principal); L97.818 Non-pressure chronic ulcer of other part of right lower leg with other specified severity; E11.51 Type 2 diabetes mellitus with diabetic peripheral angiopathy without gangrene; I87.2 Venous insufficiency (chronic) (peripheral); R60.0 Localized edema; I12.9 Hypertensive chronic kidney disease with stage 1 through stage 4 chronic kidney disease, or unspecified chronic kidney disease; N18.9 Chronic kidney disease, unspecified; E11.22 Type 2 diabetes mellitus with diabetic chronic kidney disease; E78.5 Hyperlipidemia, unspecified; Z86.718 Personal history of other venous thrombosis and embolism | CPT/HCPCS: G0463 ==

== ENCOUNTER → 2021-01-17 | Outpatient (CLI) | payer MEDICARE, OTHER | LOC: LAB SHORT 11:51 | DX: D48.5 Neoplasm of uncertain behavior of skin (principal); Z88.0 Allergy status to penicillin; Z88.8 Allergy status to other drugs, medicaments and biological substances; Z91.040 Latex allergy status | CPT/HCPCS: 88305 ==

== ENCOUNTER → 2021-08-08 | Outpatient (CLI) | payer MEDICARE, OTHER | END | disposition home or self-care (01) | LOC: LAB SHORT 11:13 → LAB 11:13 | DX: N39.0 Urinary tract infection, site not specified (principal) | CPT/HCPCS: 87086 ==

== ENCOUNTER → 2022-06-28 | Outpatient (CLI) | payer MEDICARE, OTHER ==
[2022-06-29 13:46] LABS: Stool Occult Bld Immuno 1 Positive (NEGATIVE)
== END | disposition home or self-care (01) ==
LOC: LAB SHORT 12:58
PROVIDERS: Physician Assistant Medical
DX: D50.9 Iron deficiency anemia, unspecified (principal)
CPT/HCPCS: 82274

== ENCOUNTER → 2022-12-19 | Outpatient (CLI) | payer MEDICARE, OTHER | LOC: LAB SHORT 13:58 → LAB 13:58 | DX: D48.19 Other specified neoplasm of uncertain behavior of connective and other soft tissue (principal) | CPT/HCPCS: 88305; 88341; 88342 ==

== ENCOUNTER 2023-01-02 08:06 | Day surgery (SDC) | payer MEDICARE, OTHER ==
[~2023-01-02] VITALS: Ht 160 cm; Wt 78.8 kg
[2023-01-02] VITALS (10 sets, daily range): BP systolic 96–149; BP diastolic 58–83
--- NOTE | 2023-01-02 09:41 | NUR ---
PRE-OP NOTE PT A&OX4, BREATHING RA, VSS, NO ACUTE COCNERNS. WOUND TO R ARMPIT OPEN AND DRAINING SS/PUS TINGED FLUID, SMALL ABRASIONS SURROUNDING WOUND 2/2 TAPE/DRESSINGS OVER WOUND. Patient confirms NPO status and agrees with scheduled surgery.GLASSES TO PACU AND WALKER IN ENDO 1. Pre-Op teaching done. Pt verbalizes understanding. Patient States Post-Procedure ride home has been arranged.
--- NOTE | 2023-01-02 13:16 | NUR ---
Patient up to Ambulate independently W/WALKER. STABLE W/STANDING. STAND BY ASSIST FOR TRANSFER TO W/C. THIS IS PT'S BASELINE Discharge instructions reviewed with patient. Patient verbalizes understanding. Copy given to patient to take home. Discharged via wheelchair to private car for ride home.
== END 2023-01-02 13:18 | disposition home or self-care (01) ==
LOC: ORSCMMR 08:06 → ORD 09:30 → ORSCMMR 13:18
PROVIDERS: Surgery
PROC: 0JB60ZX Excision of Chest Subcutaneous Tissue and Fascia, Open Approach, Diagnostic (ICD-10-PCS; principal; 2023-01-02 09:30)
DX: C49.3 Malignant neoplasm of connective and soft tissue of thorax (principal); Z95.0 Presence of cardiac pacemaker; I10 Essential (primary) hypertension; I48.91 Unspecified atrial fibrillation; Z79.01 Long term (current) use of anticoagulants; E11.9 Type 2 diabetes mellitus without complications; Z79.4 Long term (current) use of insulin; Z79.899 Other long term (current) drug therapy
CPT/HCPCS: 82947; 88305; A9270; J0690; J1100; J1885; J2250; J2405; J2704; J3010; J7120

== ENCOUNTER 2023-01-16 08:10 | Day surgery (SDC) | payer MEDICARE, OTHER ==
[~2023-01-16] VITALS: Ht 162.6 cm; Wt 78.9 kg
--- NOTE | 2023-01-16 09:40 | NUR ---
01/16/23 0940 Josette Guardado TETRACAINE PLACED IN RIGHT EYE AT 0909. PLEDGET PLACED IN RIGHT EYE AT 0910. PATIENT TOLERATED WELL.
[2023-01-16 10:22] VITALS: BP 126/74
--- NOTE | 2023-01-16 10:51 | NUR ---
01/16/23 1051 SARA ENGLISH IV REMOVED. WNL. CARMEN WELL. CANNULA INTACT
== END 2023-01-16 10:50 | disposition home or self-care (01) ==
LOC: ORSCSDS 08:10
PROVIDERS: Student in an Organized Health Care Education/Training Program
PROC: 08RJ3JZ Replacement of Right Lens with Synthetic Substitute, Percutaneous Approach (ICD-10-PCS; principal; 2023-01-16 09:30)
DX: E11.36 Type 2 diabetes mellitus with diabetic cataract (principal); H25.11 Age-related nuclear cataract, right eye; E11.22 Type 2 diabetes mellitus with diabetic chronic kidney disease; I12.9 Hypertensive chronic kidney disease with stage 1 through stage 4 chronic kidney disease, or unspecified chronic kidney disease; N18.30 Chronic kidney disease, stage 3 unspecified; E78.5 Hyperlipidemia, unspecified; Z96.1 Presence of intraocular lens; Z95.0 Presence of cardiac pacemaker; Z85.048 Personal history of other malignant neoplasm of rectum, rectosigmoid junction, and anus; Z79.4 Long term (current) use of insulin; Z79.899 Other long term (current) drug therapy; I48.91 Unspecified atrial fibrillation; Z79.01 Long term (current) use of anticoagulants; K74.60 Unspecified cirrhosis of liver
CPT/HCPCS: 82947; J2250; J3010; J7040; V2632

== ENCOUNTER 2023-01-29 08:08 | Day surgery (SDC) | payer MEDICARE, OTHER ==
[~2023-01-29] VITALS: Ht 162.6 cm; Wt 77.1 kg
[2023-01-29] MEDS ORDERED: HYDROCODONE-AC1 EA19 PO (08:46)
[2023-01-29] MEDS ORDERED: OMEP20ER (08:46)
[2023-01-29] MEDS ORDERED: LISI5 PO (08:47)
--- NOTE | 2023-01-29 08:48 | NUR ---
01/29/23 0848 Leticia Echavarria AT 0840 PLEDGET AT 0842 PT RECENT DX OF CANCER ON THE RIGHT SIDE, POINTS TO BREAST/SHOULDER AREA
--- NOTE | 2023-01-29 09:37 | NUR ---
01/29/23 0937 SARA ENGLISH PT STATES THAT SHE HAS R ARM PAIN. PT CAME IN WITH THIS ISSUE
[2023-01-29 09:38] VITALS: BP 112/50
== END 2023-01-29 10:00 | disposition home or self-care (01) ==
LOC: ORSCSDS 08:08
PROVIDERS: Student in an Organized Health Care Education/Training Program
PROC: 08RK3JZ Replacement of Left Lens with Synthetic Substitute, Percutaneous Approach (ICD-10-PCS; principal; 2023-01-29 09:30)
DX: E11.36 Type 2 diabetes mellitus with diabetic cataract (principal); H25.12 Age-related nuclear cataract, left eye; Z96.1 Presence of intraocular lens; I10 Essential (primary) hypertension; Z95.0 Presence of cardiac pacemaker; I48.91 Unspecified atrial fibrillation; Z79.82 Long term (current) use of aspirin; Z79.01 Long term (current) use of anticoagulants; Z79.899 Other long term (current) drug therapy
CPT/HCPCS: 82947; J2250; J3010; J7040; V2632

== ENCOUNTER 2023-03-11 13:11 | Inpatient (IN) | payer MEDICARE, OTHER ==
[~2023-03-11] VITALS: Ht 162.6 cm; Wt 75.2 kg
[~2023-03-11 13:11] MED LIST changes: +HYDROCODONE-AC1 EA19 PO; +LISI5 PO; +OMEP20ER PO
[2023-03-11 14:17] LABS: BASOPHILS ABSOLUTE AUTO 0.16 K/mm3 (0.00-0.23); BASOPHILS PERCENT AUTO 1 % (0-2); EOSINOPHILS ABSOLUTE AUTO 0.22 K/mm3 (0.00-0.68); EOSINOPHILS PERCENT AUTO 1 % (0-6); Hematocrit 39.2 % (33.0-51.0); Hemoglobin 11.7 g/dL (11.5-16.0); IMMATURE GRAN ABSOLUTE AUTO 0.17 K/mm3 (0.00-0.10); IMMATURE GRAN PERCENT AUTO 1 % (0-1); LYMPHOCYTES ABSOLUTE AUTO 1.07 K/mm3 (0.84-5.20); LYMPHOCYTES PERCENT AUTO 5 % (21-46); MONOCYTES ABSOLUTE AUTO 1.09 K/mm3 (0.16-1.47); MONOCYTES PERCENT AUTO 6 % (4-13); Mean Corpuscular HGB 21.2 pg (26.0-34.0); Mean Corpuscular HGB Conc 29.8 g/dL (31.5-36.5); Mean Corpuscular Volume 71 fL (80-100); Mean Platelet Volume 9.1 fL (9.1-12.4); NEUTROPHILS ABSOLUTE AUTO 17.03 K/mm3 (1.96-9.15); NEUTROPHILS PERCENT AUTO 86 % (41-73); Platelet Count 513 K/mm3 (150-400); RDW Coefficient Variation 20.4 % (11.7-14.2); RDW Standard Deviation 48.6 fL (35.1-46.3); Red Blood Cell Count 5.53 M/mm3 (3.80-5.20); White Blood Cell Count 19.74 K/mm3 (4.00-11.30)
[2023-03-11 14:43] LABS: Albumin, Blood 2.3 g/dL (3.4-5.0); Albumin/Globulin Ratio 0.4 (0.8-1.8); Bilirubin, Total 0.5 mg/dL (0.1-1.0); Bun/Creatinine Ratio 34.4 (12.0-20.0); Calcium, Blood 8.8 mg/dL (8.5-10.1); Creatinine, Blood 0.84 mg/dL (0.40-1.00); Globulin, Blood 5.4 g/dL (2.2-4.0); Potassium, Blood 5.3 mmol/L (3.5-5.5); Total Protein, Blood 7.7 g/dL (6.4-8.2)
[2023-03-11] MEDS ORDERED: TRESIBA100 UNIT/2 SC (15:09)
[2023-03-11] MEDS ORDERED: VICTOZA 2-0.6 MG/0.1 SC (15:11)
[2023-03-11 15:37] LABS: Source, Urine Straight Cath
[2023-03-11 16:06] LABS: Appearance, Urine Cloudy (Clear); Bilirubin, Urine Neg (Neg); Blood, Urine 1+ (Neg); Color, Urine Yellow (P-Yellow); Glucose Qualitative, Urine Neg (Neg); Ketones, Urine Neg (Neg); Leukocyte Esterase, Urine 2+ (Neg); Nitrite, Urine Pos (Neg); Protein, Urine 1+ (Neg); Urobilinogen, Urine NORM (Normal)
[2023-03-11 16:16] LABS: Bacteria Many /hpf; Squamous Epithelial Cells Few /hpf (Few); White Blood Cells, Urine 50-100 /hpf (0-5)
[2023-03-11 16:17] LABS: Hyaline Casts 0-2 /lpf (0-2); Transitional Epithelial Cells Rare /hpf (0-Rare)
[2023-03-11 17:17] LABS: Influenza A, PCR NEGATIVE (NEGATIVE); Influenza B, PCR NEGATIVE (NEGATIVE); Resp Syncytial Virus, PCR NEGATIVE (NEGATIVE)
[2023-03-11 17:20] LABS: SARS-Cov-2 (COVID-19) PCR, MMC POSITIVE (NEGATIVE)
--- NOTE | 2023-03-11 21:05 | NUR ---
ADMIT NOTE PT TRANSFERRED TO UNIT BY RAND KHAN TO MEDICAL FLOOR. PT ABLE TO STAND AND PIVOT TO HOSPITAL BED. RECEIVED REPORT FROM ADAN GORDILLO RN. PT BELONGINGS AT BEDSIDE. PT ORIENTED TO ROOM AND CALL LIGHT. WILL CONTINUE TO MONITOR.
[2023-03-11 21:10] VITALS: BP 115/62
[2023-03-12 04:48] VITALS: BP 121/56
--- NOTE | 2023-03-12 04:51 | NUR ---
SHIFT SUMMARY PT A&O X4, COOPERATIVE WITH CARE BUT REQUIRES EXPLANATIONS IN TERMS SHE UNDERSTANDS. PT DOES NOT LIKE NEEDLES. REFUSED LAB DRAW AND LOVENOX. CALLED LAB TO COME BACK AFTER TALKING TO THE PT AND EXPLAINING THE DR NEEDS THEM FOR HER CARE. TELEMETRY: VENTRICULAR PACED AT 79. ROOM AIR. 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 COVERED WITH LARGE TAGADERM. PICS IN CHART. CALLED DR MCKEON TO GET PT HOME PAIN MEDS ORDERED. SEE EMAR. RUSH IN PLACE. BED KEPT IN LWOEST POSITION WITH CALL LIGHT WITHIN REACH.
[2023-03-12 06:28] LABS: BASOPHILS ABSOLUTE AUTO 0.11 K/mm3 (0.00-0.23); BASOPHILS PERCENT AUTO 1 % (0-2); EOSINOPHILS ABSOLUTE AUTO 0.37 K/mm3 (0.00-0.68); EOSINOPHILS PERCENT AUTO 3 % (0-6); Hematocrit 32.6 % (33.0-51.0); IMMATURE GRAN ABSOLUTE AUTO 0.16 K/mm3 (0.00-0.10); IMMATURE GRAN PERCENT AUTO 1 % (0-1); LYMPHOCYTES ABSOLUTE AUTO 1.67 K/mm3 (0.84-5.20); LYMPHOCYTES PERCENT AUTO 11 % (21-46); MONOCYTES ABSOLUTE AUTO 1.22 K/mm3 (0.16-1.47); MONOCYTES PERCENT AUTO 8 % (4-13); Mean Corpuscular HGB 21.6 pg (26.0-34.0); Mean Corpuscular HGB Conc 30.7 g/dL (31.5-36.5); Mean Corpuscular Volume 70 fL (80-100); Mean Platelet Volume 8.7 fL (9.1-12.4); NEUTROPHILS ABSOLUTE AUTO 11.39 K/mm3 (1.96-9.15); NEUTROPHILS PERCENT AUTO 76 % (41-73); Platelet Count 359 K/mm3 (150-400); RDW Coefficient Variation 20.1 % (11.7-14.2); RDW Standard Deviation 47.3 fL (35.1-46.3); Red Blood Cell Count 4.63 M/mm3 (3.80-5.20); White Blood Cell Count 14.92 K/mm3 (4.00-11.30)
[2023-03-12 06:56] LABS: Albumin, Blood 1.9 g/dL (3.4-5.0); Albumin/Globulin Ratio 0.5 (0.8-1.8); Bilirubin, Total 0.2 mg/dL (0.1-1.0); Calcium, Blood 8.4 mg/dL (8.5-10.1); Creatinine, Blood 0.72 mg/dL (0.40-1.00); Globulin, Blood 4.2 g/dL (2.2-4.0); Potassium, Blood 3.4 mmol/L (3.5-5.5); Total Protein, Blood 6.1 g/dL (6.4-8.2)
[2023-03-12 08:03] VITALS: BP 132/48
[2023-03-12 14:49] VITALS: BP 122/61
--- NOTE | 2023-03-12 17:55 | NUR ---
SHIFT SUMMARY PT AWAKE AT START OF SHIFT, RESTING QUIETLY LF. PT ADMITTED FOR PYLEONEPHRITIS AND FOUND TO BE COVID +. PT HERE WITH C/O WEAKNESS, SEPSIS, UTI. IVF'S INFUSING UNTIL 1L COMPLETE. 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 DRSG CHANGED BY CONCRETE ANALYST PRIOR TO COMING IN AND AGAIN THIS AFTERNOON AFTER BED BATH. 2 ABD PADS PLACED WITH 3 TEGADERMS TO COVER AND CONTAIN DRAINAGE. PT NEEDING RADIATION, BUT NEEDS TO BE CLEARED BY CARDIOLOGY FIRST, DUE TO PACE MAKER BEING IN RCW. PT ABLE TO STAND AND PIVOT TO BSC AND BACK. UP TO EOB FOR MEALS. THERAPY IN TO SEE PT TODAY AND LATER LEFT EXERCISES FOR PT TO DO; PT REPORTING THAT SHE IS VERY WEAK COMPARED TO 1 OR 2 DAYS AGO. VISITORS TO THIS AFTERNOON, BRINGING PT'S DOG. PT MEDICATED PER EMAR FOR C/O PAIN TO R ARM/SIDE AREA. PT REPORTING IT VERY PAINFUL. PT PLEASANT AND CO-OP WITH CARE. ABLE TO EAT AND DRINK. CBG'S HAVE BEEN LOW; SEE CHART. NOTE LEFT TO DISCUSS WITH DOCTOR BEFORE GIVING AM LANTUS. PT REPORTING THOUGH, THAT SHE DOES USUALLY TAKE EVEN MORE LANTUS AT HOME THAN HAS BEEN ORDERED HERE. WILL CONTINUE TO MX. CALL LT IN REACH.
[2023-03-12 19:40] VITALS: BP 133/56
--- NOTE | 2023-03-12 22:33 | NUR ---
WOUND CARE RIGHT AXILLA AREA WOUND. EDGES NOT APPROXIMATED. NO SIGN OF WOUND GLUE, OR CLOSURE DEVISE. WEEPING SEROSANGENIOUS, NON PURULENT FLUID. WHEN INCISION CLEANED, IT RELEASED AIR. NO ORDOR NOTED. REDRESSED WITH MAXSORB X2 AND VASELINE GAUZE TO PREVENT THE PADS FROM STICKING TO THE EXPOSED INCISION. DRESSING CHANGE UNCOMFORTABLE FOR HER. CARE ONGOING.
--- NOTE | 2023-03-12 23:39 | NUR ---
NOTE MEDICATED FOR PAIN. CHECKED RIGHT AXILLA DRESSING-CD&I. CARE ONGOING.
[2023-03-13 03:52] VITALS: BP 115/94
--- NOTE | 2023-03-13 04:09 | NUR ---
NOTE PT LAERT AND ORIENTED. [place]. RIGHT AXILLARY DRESSING CHNAGED AT 1999. NO STRIKE THROUGH DRAINAGE NOTED. PT HAS SIGNIFICANT PAIN. SHE WANTS US TO COMBINE 1 NORCO AND TYLNOL 650MG AT THE SAME TIME, SHE DOESN'T SEEM TO GET MUCH PAIN RELIEF FROM THIS COMBONATION. SHE IS RELUCTANT TO MOVE HER RIGHT ARM D/T GUARDING. PUREWICK IN PLACE. CHANGED AT 0001. SHE WAS ABLE TO TURN WITH MODERATE ASSIST. MARISELA, CLEAR URINE. CARE ONGOING.
[2023-03-13 06:55] LABS: BASOPHILS ABSOLUTE AUTO 0.11 K/mm3 (0.00-0.23); BASOPHILS PERCENT AUTO 1 % (0-2); EOSINOPHILS ABSOLUTE AUTO 0.49 K/mm3 (0.00-0.68); EOSINOPHILS PERCENT AUTO 3 % (0-6); Hematocrit 31.2 % (33.0-51.0); Hemoglobin 9.7 g/dL (11.5-16.0); IMMATURE GRAN ABSOLUTE AUTO 0.08 K/mm3 (0.00-0.10); IMMATURE GRAN PERCENT AUTO 1 % (0-1); LYMPHOCYTES PERCENT AUTO 11 % (21-46); MONOCYTES PERCENT AUTO 9 % (4-13); Mean Corpuscular HGB 21.6 pg (26.0-34.0); Mean Corpuscular HGB Conc 31.1 g/dL (31.5-36.5); Mean Corpuscular Volume 70 fL (80-100); Mean Platelet Volume 8.8 fL (9.1-12.4); NEUTROPHILS PERCENT AUTO 76 % (41-73); Platelet Count 340 K/mm3 (150-400); RDW Coefficient Variation 20.6 % (11.7-14.2); RDW Standard Deviation 47.8 fL (35.1-46.3); Red Blood Cell Count 4.49 M/mm3 (3.80-5.20); White Blood Cell Count 14.28 K/mm3 (4.00-11.30)
[2023-03-13 07:13] LABS: Albumin, Blood 1.8 g/dL (3.4-5.0); Albumin/Globulin Ratio 0.5 (0.8-1.8); Bilirubin, Total 0.2 mg/dL (0.1-1.0); Bun/Creatinine Ratio 25.1 (12.0-20.0); Calcium, Blood 8.4 mg/dL (8.5-10.1); Creatinine, Blood 0.76 mg/dL (0.40-1.00); Globulin, Blood 3.9 g/dL (2.2-4.0); Potassium, Blood 3.7 mmol/L (3.5-5.5); Total Protein, Blood 5.7 g/dL (6.4-8.2)
[2023-03-13 08:26] VITALS: BP 122/57
[2023-03-13] MEDS ORDERED: CEPH500 PO (12:36)
[2023-03-13] MEDS ORDERED: LISI5 PO (12:36)
--- NOTE | 2023-03-13 16:29 | NUR ---
PT [id number] WITH DC INSTRUCTIONS, DRESSING TO L AXILLA CHANGED BEFORE DC. PT'S CAREGIVER PICKED UP AND WILL REFRIGERATION REPAIR SUPERVISOR PERSCRIPTION FOR ABX. SENT HOME WITH BELONGINGS. WHEELCHAIR OUT TO PRIVATE CAR
== END 2023-03-13 14:52 | disposition home health service (06) | DRG 871 ==
LOC: ER 13:11 → MEDS 13:12 → ENPENDDIS 03-13 13:00 → MEDS 03-13 14:52
PROVIDERS: Emergency Medicine; Student in an Organized Health Care Education/Training Program; ADMIT Internal Medicine
PROC: 3E03329 Introduction of Other Anti-infective into Peripheral Vein, Percutaneous Approach (ICD-10-PCS; principal; 2023-03-11)
PROC: XW033E5 Introduction of Remdesivir Anti-infective into Peripheral Vein, Percutaneous Approach, New Technology Group 5 (ICD-10-PCS; 2023-03-11)
PROC: 8E0ZXY6 Isolation (ICD-10-PCS; 2023-03-11)
DX: A41.50 Gram-negative sepsis, unspecified (principal); U07.1 COVID-19; I50.32 Chronic diastolic (congestive) heart failure; N12 Tubulo-interstitial nephritis, not specified as acute or chronic; A41.89 Other specified sepsis; E11.9 Type 2 diabetes mellitus without complications; I11.0 Hypertensive heart disease with heart failure; E86.0 Dehydration; I35.0 Nonrheumatic aortic (valve) stenosis; C44.621 Squamous cell carcinoma of skin of unspecified upper limb, including shoulder; E87.6 Hypokalemia; Z79.82 Long term (current) use of aspirin; Z79.01 Long term (current) use of anticoagulants; Z88.0 Allergy status to penicillin; Z88.8 Allergy status to other drugs, medicaments and biological substances; Z79.4 Long term (current) use of insulin
CPT/HCPCS: 0241U; 36415; 71045; 80053; 81001; 82947; 83605; 83880; 84145; 85025; 87040; 87077; 87086; 87186; 93005; 93010; 96365; 96366; 97110; 97116; 97162; 97165; 97530; 99285-25; A9270; G0378; J0248; J0696; J1170; J1815; J1885; J7030; J7050; P9612